=== PATIENT | female | born 1965 | race Caucasian/White ===

== ENCOUNTER → 2020-03-06 13:06 | Outpatient (BNVA) | payer MEDICAID, SELFPAY | PROVIDERS: PCP Emergency Medicine; Referring Provider Emergency Medicine; Visit Provider Internal Medicine Cardiovascular Disease | DX: R07.9 Chest pain, unspecified (principal); R06.00 Dyspnea, unspecified; I70.0 Atherosclerosis of aorta | CPT/HCPCS: 93005; 99212 ==

== ENCOUNTER 2020-10-16 16:32 | Outpatient (REF) | payer MEDICAID, SELFPAY ==
--- NOTE | ~2020-10-16 | MM_ITS ---
EXAMINATION: MM SCREENING DIGITAL BREAST TOMOSYNTHESIS, BILATERAL CLINICAL INFORMATION: Screening. Asymptomatic. The lifetime risk of breast cancer based on the Tyrer-Cuzick Model is 11.8%. COMPARISON: Mammography: 06/04/2014 and 05/27/2014. TECHNIQUE: Digital breast tomosynthesis is performed in both the craniocaudal and mediolateral oblique views along with computer-aided detection (CAD). Synthesized 2D images are generated from the tomosynthesis. FINDINGS: The breasts are almost entirely fatty (ACR BI-RADS breast composition Category a). There is a stable parenchymal pattern within the left breast with no new abnormal dominant mass or suspicious grouping of microcalcifications. Within the right breast upper outer aspect approximately 10 cm from the nipple there is a region of ill-defined density which was present to some degree on prior study but not as prominent. Spot compression views are recommended in craniocaudal and mediolateral oblique projections. MM/MM tomosynthesis screening BI IMPRESSION: Right breast abnormality upper outer aspect for further evaluation as described. ASSESSMENT: BI-RADS 0: Incomplete - Need Additional Imaging Evaluation RECOMMENDATION: 1. Additional views of the right breast. 2. Targeted ultrasound if warranted after review of the additional views. 3. Radiology department staff will contact the patient for additional imaging. This patient's information was entered into a reminder system with a target due date for their next mammogram.
== END 2020-10-16 16:33 | disposition home or self-care (01) ==
LOC: HO.MAMMO 16:32
PROVIDERS: PCP Internal Medicine; Visit Provider Advanced Practice Midwife
DX: Z12.31 Encounter for screening mammogram for malignant neoplasm of breast (principal)
CPT/HCPCS: 77063; 77067

== ENCOUNTER 2020-10-30 14:01 | Outpatient (REF) | payer MEDICAID, SELFPAY ==
--- NOTE | ~2020-10-30 | MM_ITS ---
EXAMINATION: MM DIAGNOSTIC DIGITAL BREAST TOMOSYNTHESIS, RIGHT US DIAGNOSTIC ULTRASOUND BREAST, RIGHT CLINICAL INFORMATION: Recall from screening for small architectural abnormality posterior 9:00 right breast. COMPARISON: Mammography: 10/16/2020, 06/04/2014 TECHNIQUE: Digital breast tomosynthesis is performed. 2D images are generated from the tomosynthesis. The following views are obtained: 3-D spot MLO, 3-D spot CC, 3-D ML. Ultrasound right breast is targeted to the outer quadrant. Grayscale imaging and color Doppler are performed without and with harmonics. FINDINGS: The breasts are almost entirely fatty (ACR BI-RADS breast composition Category a). The additional views show small persistent area of architectural changes posterior 9:00 position. Finding is more conspicuous on current exam possibly related to 3-D technique. Ultrasound demonstrates no cystic or solid mass or architectural abnormality. No ultrasound correlate for the mammographic finding. Results are discussed with the patient at time of visit. The mammographic finding may represent a small radial scar. Stereotactic sampling is suggested. Results are Recommendation called to medical coordinator pesticide use (Gabby) for provider Nichole Argueta CNM on 10/30/2020. MM/MM tomosynthesis added views R IMPRESSION: Subtle architectural changes posterior 9:00 right breast, possibly radial scar. ASSESSMENT: BI-RADS 4: Suspicious (subcategory 4A: Low suspicion for malignancy) RECOMMENDATION: Stereotactic biopsy right breast. This patient's information was entered into a reminder system with a target due date for their next mammogram.
== END 2020-10-30 14:02 | disposition home or self-care (01) ==
LOC: HO.MAMMO 14:01
PROVIDERS: Visit Provider Advanced Practice Midwife
DX: R92.2 Inconclusive mammogram (principal)
CPT/HCPCS: 76642; 77061; 77065

== ENCOUNTER 2020-11-14 09:11 | Outpatient (REF) | payer MEDICAID, SELFPAY | END 2020-11-14 09:12 | disposition home or self-care (01) | LOC: HO.MAMMO 09:11 | PROVIDERS: Visit Provider Surgery | DX: R92.8 Other abnormal and inconclusive findings on diagnostic imaging of breast (principal) | CPT/HCPCS: 99202 ==

== ENCOUNTER 2020-11-28 10:05 | Outpatient (REF) | payer MEDICAID, SELFPAY ==
--- NOTE | ~2020-11-28 | MM_ITS ---
EXAMINATION: STEREOTACTIC TARGETING BREAST, RIGHT CLINICAL INFORMATION: Question of architectural changes posterior 9:00 right breast on 3-D imaging when compared with remote 2-D exam. No ultrasound correlate. COMPARISON: Mammography 10/30/2020, 10/16/2020, 06/04/2014, 05/27/2014. TECHNIQUE/PROCEDURE: Informed consent was obtained from the patient after discussion of the benefits, risks, and alternatives to biopsy today. Patient appeared to understand. Gave opportunity for questions. Patient signed consent form. BIOPSY TABLE: [facility]opsy System. LESION: Question of architectural changes posterior 9:00 position. TARGETING: Digital breast tomosynthesis used for targeting. Targeting is attempted from both the lateral side as well as from the craniocaudal approach. There is no architectural distortion or spiculated lesion demonstrated. Background benign appearing stromal markings are demonstrated in the expected area. It was decided to abort the planned tissue sampling. Short interval six-month follow-up right diagnostic mammography will be performed. Results and management plans discussed with the patient who is in agreement. Results and management plan called to medical assisting program director (Nicci) for Dr. Thakkar on 11/28/2020. ASSESSMENT: BI-RADS 3: Probably Benign RECOMMENDATIONS: Diagnostic right digital breast tomosynthesis in 6 months. This patient's information was entered into a reminder system with a target due date for their next mammogram.
== END 2020-11-28 10:06 | disposition home or self-care (01) ==
LOC: HO.MAMMO 10:05
PROVIDERS: Visit Provider Surgery
DX: R92.8 Other abnormal and inconclusive findings on diagnostic imaging of breast (principal)
CPT/HCPCS: 19081

== ENCOUNTER 2021-01-29 11:21 | Outpatient (REF) | payer OTHER, MEDICAID, SELFPAY ==
--- NOTE | ~2021-01-29 | XR_ITS ---
EXAMINATION: XR SHOULDER, RIGHT CLINICAL INFORMATION: Right shoulder pain. COMPARISON: None. TECHNIQUE: AP external rotation, Grashey, scapular Y, and axillary views of the right shoulder. FINDINGS: Small acromioclavicular marginal osteophytes and mild subchondral cystic change. Tiny glenohumeral marginal osteophytes. No fracture or dislocation. Thin calcification adjacent to the greater tuberosity measuring 0.7 cm, consistent with infraspinatus calcific tendinitis. XR/XR shoulder RT min 2V IMPRESSION: Mild distal infraspinatus calcific tendinitis. Mild acromioclavicular and glenohumeral osteoarthritis.
== END 2021-01-29 11:22 | disposition home or self-care (01) ==
LOC: HO.XRAY 11:21
PROVIDERS: Absent Provider Internal Medicine; PCP Internal Medicine; Visit Provider Family Medicine
DX: M25.511 Pain in right shoulder (principal)
CPT/HCPCS: 73030

== ENCOUNTER → 2021-02-20 10:14 | Outpatient (BNVA) | payer OTHER, MEDICAID, SELFPAY | PROVIDERS: PCP Internal Medicine; Visit Provider Physician Assistant | DX: M75.101 Unspecified rotator cuff tear or rupture of right shoulder, not specified as traumatic (principal) | CPT/HCPCS: 99202 ==

== ENCOUNTER → 2021-03-25 13:35 | Outpatient (BNVA) | payer MEDICAID, SELFPAY | PROVIDERS: PCP Internal Medicine; Referring Provider Internal Medicine; Visit Provider Internal Medicine Cardiovascular Disease | DX: R06.00 Dyspnea, unspecified (principal); I70.0 Atherosclerosis of aorta | CPT/HCPCS: 93005; 99212 ==

== ENCOUNTER 2021-04-25 16:02 | Emergency (ER) | payer MEDICAID, SELFPAY ==
--- NOTE | ~2021-04-25 | CT_ITS ---
EXAMINATION: CT HEAD WITHOUT CONTRAST CT CERVICAL SPINE WITHOUT CONTRAST CLINICAL INFORMATION: 40 pound bag fell on head and neck at work COMPARISON: None. TECHNIQUE: Contiguous axial imaging was performed from the skull base to vertex without intravenous administration of contrast. In addition, helical noncontrast CT imaging was acquired through the cervical spine and source images were reviewed along with axial reconstructions and sagittal and coronal MPRs. DOSE LOWERING TECHNIQUES: This CT examination was performed using dose optimization techniques as appropriate, variously including the following: - Automated exposure control - Adjustment of mA and/or kV according to patient size (this includes techniques or standardized protocols for targeted exams were dose is matched to indication/reason for exam; i.e. extremities or head) - Use of degenerative construction technique DLP: 1170 mGy-cm FINDINGS: HEAD: No intracranial mass, hemorrhage, or midline shift is visualized. The ventricles and sulci are age-appropriate. No extra-axial collections are identified. The paranasal sinuses are well aerated. CERVICAL SPINE: There is no evidence of acute cervical spine fracture. Vertebral bodies remain normal in height and alignment is anatomic. Mild loss of intervertebral disc space at C5-C6 and C6-C7 secondary to degenerative disc disease. No pre- or paravertebral soft tissue abnormality is identified. Limited assessment of the lung apices is unremarkable. CT/CT cervical spine wo con IMPRESSION: 1. No acute intracranial pathology. 2. No CT evidence of acute cervical spine fracture or traumatic subluxation.
--- NOTE | ~2021-04-25 | XR_ITS ---
EXAMINATION: XR SHOULDER, RIGHT CLINICAL INFORMATION: Right shoulder pain after 40 pound bag fell on her at work COMPARISON: Right shoulder x-ray on 01/29/2021 TECHNIQUE: AP external rotation, Grashey, scapular Y, and axillary views of the right shoulder. FINDINGS: There is mild acromioclavicular osteoarthritis. Glenohumeral joint is well preserved. No fracture. Alignment is anatomic. Mild calcific tendinitis. XR/XR shoulder RT min 2V IMPRESSION: Mild degenerative disease of the right shoulder.
--- NOTE | ~2021-04-25 | CT_ITS ---
EXAMINATION: CT HEAD WITHOUT CONTRAST CT CERVICAL SPINE WITHOUT CONTRAST CLINICAL INFORMATION: 40 pound bag fell on head and neck at work COMPARISON: None. TECHNIQUE: Contiguous axial imaging was performed from the skull base to vertex without intravenous administration of contrast. In addition, helical noncontrast CT imaging was acquired through the cervical spine and source images were reviewed along with axial reconstructions and sagittal and coronal MPRs. DOSE LOWERING TECHNIQUES: This CT examination was performed using dose optimization techniques as appropriate, variously including the following: - Automated exposure control - Adjustment of mA and/or kV according to patient size (this includes techniques or standardized protocols for targeted exams were dose is matched to indication/reason for exam; i.e. extremities or head) - Use of degenerative construction technique DLP: 1170 mGy-cm FINDINGS: HEAD: No intracranial mass, hemorrhage, or midline shift is visualized. The ventricles and sulci are age-appropriate. No extra-axial collections are identified. The paranasal sinuses are well aerated. CERVICAL SPINE: There is no evidence of acute cervical spine fracture. Vertebral bodies remain normal in height and alignment is anatomic. Mild loss of intervertebral disc space at C5-C6 and C6-C7 secondary to degenerative disc disease. No pre- or paravertebral soft tissue abnormality is identified. Limited assessment of the lung apices is unremarkable. CT/CT head/brain wo con IMPRESSION: 1. No acute intracranial pathology. 2. No CT evidence of acute cervical spine fracture or traumatic subluxation.
[2021-04-25 16:09] VITALS: BP 150/53; PULSE 72; RESP 18; TEMP 36.7; O2SAT 99; BMI 39.7
[2021-04-25] MEDS: Acetaminophen 325 MG TABLET 975 MG PO (16:53)
--- NOTE | 2021-04-25 17:31 | ED.HEATRA ---
HPI - Head Injury General Chief complaint: Head Injury Stated complaint: 40 lb bag fell on the back of head at work Time Seen by Provider: 04/25/21 16:09 Source: patient Mode of arrival: ambulatory Limitations: no limitations History of Present Illness HPI Narrative: 55-year-old female presenting to the ED with complaints of intermittent headaches, fogginess and unable to concentrate and forgetfulness after she had a work related injury on Tuesday. 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 She reports she does not actually have pain at this time although she is concern for concussion or any other acute processes. She denies loss of consciousness or being on any blood thinners or any other symptoms complaints concerns or injuries at this time. MD Complaint: head injury Onset (ago): day(s) (4) Mechanism of Injury: work related injury Place: work Loss of Consciousness: no Location of injury: occipital Radiation: none Other Injuries: none Related Data Home Medications Medication Instructions Recorded Confirmed albuterol sulfate 90 mcg/actuation 2 puff INHALATION Q6H PRN 03/06/20 03/25/21 aerosol inhaler (ProAir HFA) amlodipine 2.5 mg tablet (Norvasc) 2.5 mg PO DAILY 03/06/20 03/25/21 atenolol 25 mg tablet 25 mg PO DAILY 03/06/20 03/25/21 atorvastatin 80 mg tablet 80 mg PO DAILY 03/06/20 03/25/21 hydrocortisone 1 % topical cream 1 applic TOPICAL TID PRN 03/06/20 03/25/21 (Anti-Itch (hydrocortisone)) ipratropium 20 mcg-albuterol 100 1 puff INHALATION QID 03/06/20 03/25/21 mcg/actuation mist for inhalation (Combivent Respimat) meloxicam 7.5 mg tablet (Mobic) 7.5 mg PO DAILY 03/06/20 03/25/21 simethicone 180 mg capsule (Gas 180 mg PO BID PRN 03/06/20 03/25/21 Relief (simethicone)) Previous Rx's Medication Instructions Recorded fluticasone propionate 115 2 puff INHALATION BID #12 g 04/24/21 mcg-salmeterol 21 mcg/actuation HFA inhaler (Advair HFA) acetaminophen 500 mg tablet 1,000 mg PO QID PRN #14 tab 04/25/21 (Tylenol Extra Strength) cyclobenzaprine 10 mg tablet 10 mg PO Q8H PRN #14 tab 04/25/21 ondansetron 4 mg disintegrating 4 mg PO Q6-8H PRN #14 tab 04/25/21 tablet Allergies Allergy/AdvReac Type Severity Reaction Status Date / Time amoxicillin Allergy Unknown Unknown Verified 03/25/21 13:42 Erythromycin Allergy Unknown unknown Uncoded 11/14/20 08:48 Latex Gloves Allergy Unknown Unknown Uncoded 11/14/20 08:48 Lidocaine Allergy Unknown Unknown Uncoded 11/14/20 08:48 Review of Systems Review of Systems: Constitutional : No changes in activity, No lethargy, No recent prior head injury, No agitation, No increased fussiness ENT/Mouth : No Ear Pain, No Nasal discharge/drainage Eyes: No Eye Pain, No Swelling, No Redness, No Foreign Body, No Vision Changes Cardiovascular : No Chest Pain, No SOB Respiratory : No Cough Gastrointestinal : No Nausea, No Vomiting, No abdominal Pain Genitourinary : No Dysuria, No Urinary Frequency, No Urinary Incontinence, No Urgency, No Flank Pain Musculoskeletal : No joint pain, No neck stiffness, No back pain/injury Skin : No lacerations Neuro : No unsteady gait, No Paresthesias, No Loss of Consciousness, No altered mental status, No dizziness, + Headache Denies past medical history of HIV, recent trauma, coagulopathy, recent spinal/ epidural procedure, new medication, URI symptoms, close contacts with similar symptoms, tick bite, or known CO2 exposure. Yes all other systems are reviewed and are negative [facility], [facility] Past Medical History Attestation statement: The following information was validated with the patient. Medical History Aortic atherosclerosis Chest pain Surgical History History of colonoscopy Family History Family History Mother HTN (hypertension) H/O heart artery stent Father No problems noted. Social History Social History Alcohol intake: current Alcohol intake frequency: holidays/special occasions only Patient Tobacco Use Status: Former Tobacco user Quit Date: 2010 Years Smoked: 28 +/- Advance Directives: No Advance Directives Information Provided: Yes Current occupational status: employed Current occupation: [employer] handed Physical Exam Vital Signs: Vital Signs: Last Vital Signs Temp 98.0 F 04/25/21 16:09 Pulse 72 04/25/21 16:09 Resp 18 04/25/21 16:09 BP 150/53 H 04/25/21 16:09 Pulse Ox 99 04/25/21 16:09 BMI result Body Mass Index 39.7 Vital signs have been reviewed as normal and appeared to be correct. Blood pressure normal. Heart rate normal. Respiration rate normal. Temperature normal. Oxygen saturation normal. Appearance: Alert. Oriented X3. No acute distress. Head: Normal external exam. Normocephalic. Atraumatic. Able to rotate head bilaterally. Eyes: PERRLA. EOMI. No nystagmus noted. Conjunctiva and sclera normal. Eyelids normal. Corneal reflex normal. ENT: EAC normal. TM's Normal. No septal hematoma noted. No hemotympanum noted. Hearing normal. Pharynx normal. Uvula midline. tongue midline. Moist mucous membranes. No trismus noted. No drooling noted. No muffled voice noted. Neck: Normal inspection. Neck supple. FROM. No adenopathy. Thyroid Normal. No meningeal signs. No neck mass noted. CVS: Normal heart rate and rhythm. Heart sound normal. No murmurs noted. Pulses normal throughout. Respiratory: No respiratory distress. Painless inspiration. Breath sounds normal. No wheezes/rales/rhonchi noted. Chest nontender. No accessory muscle usage noted or decreased air movement noted. Back: Full range of motion noted. Skin: Skin warm and dry. Normal skin color. Normal skin turgor. No rashes/lesions/lacerations noted. Extremities: Patient with tenderness all patients to the right shoulder at the AC joint with full range of motion no obvious ligamentous or tendon injury noted. No obvious deformities are noted. Otherwise all other Extremities exhibit normal range of motion and nontender. Able to shrug shoulders bilaterally and keep up against resistance. Neuro: Oriented X 3. No motor deficit. No sensory deficit. Reflexes normal. Moving all extremities. No focal motor deficits. Cranial nerves II-XI intact bilaterally. Facial strength normal. Normal cognition. Speech normal. Gait normal. Strength 5/5 throughout. No pronator drift. No tremor noted. No fasciculations noted. Muscle tone normal throughout. No asterixis noted. Kyqfrl-pv-[id number] test normal. Heel to asher test normal. Tandem gait normal. Does not sway with eyes open. Romberg test negative. Rapid alternating movement upper extremity normal. Rapid alternating movement lower extremity normal. Hand drop from overhead-Mrs. face. No rigidity noted. Course Course Course Narrative: 16:50pm - 55-year-old female presenting to the ED with complaints of intermittent headaches, fogginess and unable to concentrate and forgetfulness after she had a work related injury on Tuesday. 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 She reports she does not actually have pain at this time although she is concern for concussion or any other acute processes. She denies loss of consciousness or being on any blood thinners or any other symptoms complaints concerns or injuries at this time. Will obtain a CT scan of brain/cervical spine and x-ray of her right shoulder provide 975 mg of Tylenol for the patient's headache and re-evaluate. Reevaluation(s) Reevaluation #1: - CT scan of brain/cervical spine within normal limits no acute processes are noted. X-ray of right shoulder revealed chronic changes no acute processes are noted. Will DC home with symptomatic treatment instructions to follow up with PCP/[facility] for her job at [employer] and to return if any new or worsening symptoms. Patient understands agrees with this plan. Time: 17:38 [facility] - Head Injury Medical Records Attestation: I reviewed the patient's medical records. Imaging Data Right shoulder xray : Attestation: I personally reviewed and interpreted this imaging study as follows: Radiologist's impression: FINDINGS: There is mild acromioclavicular osteoarthritis. Glenohumeral joint is well preserved. No fracture. Alignment is anatomic. Mild calcific tendinitis.? XR/XR shoulder RT min 2V IMPRESSION: Mild degenerative disease of the right shoulder. CT scan of brain/cervical spine without contrast: Attestation: I personally reviewed and interpreted this imaging study as follows: Radiologist's impression: FINDINGS: HEAD: No intracranial mass, hemorrhage, or midline shift is visualized. The ventricles and sulci are age-appropriate. No extra-axial collections are identified. The paranasal sinuses are well aerated. CERVICAL SPINE: There is no evidence of acute cervical spine fracture. Vertebral bodies remain normal in height and alignment is anatomic. Mild loss of intervertebral disc space at C5-C6 and C6-C7 secondary to degenerative disc disease. No pre- or paravertebral soft tissue abnormality is identified. Limited assessment of the lung apices is unremarkable. CT/CT cervical spine wo con IMPRESSION: 1. No acute intracranial pathology. 2. No CT evidence of acute cervical spine fracture or traumatic subluxation. ? Discharge Plan Discharge Clinical Impression: Work related injury, Head injury, Injury of neck, Right shoulder strain, Concussion without loss of consciousness Patient Disposition: Home, Self-Care Instructions: Concussion (ED), Return to Work Instructions (ED) Prescriptions: New cyclobenzaprine 10 mg tablet 10 mg PO Q8H PRN (Reason: Muscle spasm) Qty: 14 RF: 0 acetaminophen [Tylenol Extra Strength] 500 mg tablet 1,000 mg PO QID PRN (Reason: fever or pain) Qty: 14 RF: 0 ondansetron 4 mg tablet,disintegrating 4 mg PO Q6-8H PRN (Reason: nausea and vomiting) Qty: 14 RF: 0 No Action Advair HFA 115-21 mcg/actuation HFA aerosol inhaler 2 puff inhalation BID Qty: 12 RF: 6 atenolol 25 mg tablet 25 mg PO DAILY RF: 0 hydrocortisone [Anti-Itch (HC)] 1 % cream 1 applic topical TID PRNRF: 0 simethicone [Gas Relief (simethicone)] 180 mg capsule 180 mg PO BID PRNRF: 0 meloxicam [Mobic] 7.5 mg tablet 7.5 mg PO DAILY RF: 0 albuterol sulfate [ProAir HFA] 90 mcg/actuation HFA aerosol inhaler 2 puff inhalation Q6H PRNRF: 0 atorvastatin 80 mg tablet 80 mg PO DAILY RF: 0 Combivent Respimat 20-100 mcg/actuation mist 1 puff inhalation QID RF: 0 amlodipine [Norvasc] 2.5 mg tablet 2.5 mg PO DAILY RF: 0 Referrals: [facility] [Provider Group] - 2 days (for [facility] ) Josr Veliz MD [Primary Care Provider] - 2 days Stand Alone Forms: Work/School Release Print Language: Estonian
== END 2021-04-25 18:12 | disposition home or self-care (01) ==
PROVIDERS: Emergency Provider Emergency Medicine; PCP Internal Medicine
DX: S06.0X0A Concussion without loss of consciousness, initial encounter (principal); S09.90XA Unspecified injury of head, initial encounter; S46.911A Strain of unspecified muscle, fascia and tendon at shoulder and upper arm level, right arm, initial encounter; W20.8XXA Other cause of strike by thrown, projected or falling object, initial encounter; Y93.89 Activity, other specified; Y92.812 Truck as the place of occurrence of the external cause; Y99.0 Civilian activity done for income or pay
CPT/HCPCS: 70450; 72125; 73030; 99283; 99284

== ENCOUNTER → 2021-05-01 15:21 | Outpatient (BNVA) | payer MEDICAID, SELFPAY | PROVIDERS: PCP Internal Medicine; Visit Provider Internal Medicine Pulmonary Disease | DX: J44.9 Chronic obstructive pulmonary disease, unspecified (principal) | CPT/HCPCS: 99212 ==

== ENCOUNTER 2021-05-28 14:26 | Outpatient (REF) | payer MEDICAID, SELFPAY ==
--- NOTE | ~2021-05-28 | MM_ITS ---
EXAMINATION: MM DIAGNOSTIC DIGITAL BREAST TOMOSYNTHESIS, RIGHT CLINICAL INFORMATION: Short interval follow-up questionable architectural changes posterior 9:00 right breast. Aborted placed right stereotactic biopsy 11/28/2020 for lack of definable target. The lifetime risk of breast cancer based on the Tyrer-Cuzick Model is 12%. COMPARISON: Mammography: 11/28/2020, 10/30/2020, 10/16/2020 (BI-RADS 0), 06/04/2014, 05/27/2014 (baseline). TECHNIQUE: Digital breast tomosynthesis is performed in both the craniocaudal and mediolateral oblique views along with computer-aided detection (CAD). Synthesized 2D images are generated from the tomosynthesis. FINDINGS: There are scattered areas of fibroglandular density (ACR BI-RADS breast composition Category b). Stromal tissue is predominantly anterior retroareolar. Remainder of the breast is largely fatty replaced. Some subtle stromal markings are suggested on tomography, less conspicuous when compared with prior studies. There is no developing density or interval mass or interval architectural changes. Possible torsion, right breast will be reassessed at diagnostic exam at time of annual mammography, due in 6 months. No abnormal calcifications. Skin contours are smooth. Results are discussed with the patient at time of visit. MM/MM tomosynthesis diagnostic RT IMPRESSION: Architectural markings posterior 9:00 right breast are less conspicuous. No developing density or interval mass or architectural changes. ASSESSMENT: BI-RADS 3: Probably Benign RECOMMENDATION: Diagnostic mammography at time of annual bilateral mammography, due in 6 months. This patient's information was entered into a reminder system with a target due date for their next mammogram.
== END 2021-05-28 14:27 | disposition home or self-care (01) ==
LOC: HO.MAMMO 14:26
PROVIDERS: Visit Provider Internal Medicine
DX: N63.15 Unspecified lump in the right breast, overlapping quadrants (principal)
CPT/HCPCS: 77061; 77065

== ENCOUNTER → 2021-06-02 14:45 | Outpatient (BNVA) | payer MEDICAID, SELFPAY | PROVIDERS: PCP Internal Medicine; Visit Provider Internal Medicine Pulmonary Disease | DX: J30.89 Other allergic rhinitis (principal); J44.9 Chronic obstructive pulmonary disease, unspecified | CPT/HCPCS: 99212 ==

== ENCOUNTER → 2021-07-24 08:08 | Outpatient (REF) | payer MEDICAID, SELFPAY ==
--- NOTE | 2021-07-24 08:11 | CA_ITS ---
Acquisition Time: 2021-07-24 08:25:49 Total Exercise Time: 00:07:27 Test Indications: Chest Pain Medications: ALBUTEROL AMLODIPINE ATORVASTATIN COMBIVENT MELOXICAM SINGULAIR Protocol: CHAVA Max HR: 142 BPM 85% of Pred: 166 BPM Max BP: 166/068 mmHG Max Work Load: 9.1 METS Exercise stress test with exercise 7 min 27 sec of Chava protocol, achieving 86% MPHR, 9.1 METs, with moderate shortness of breath, no chest discomfort, with isolated pVC, with normotensive response to exercise, with borderline ST depression inferiorly at peak exercise which corrects by 22 sec of recovery, artifactual changes can not be ruled out. In recovery her breathing improved quickly with rest. Test reviewed with Dr Sal Referred By: Isaiah Conde Overread By: DIMAS PEÑA
== END ==
LOC: HO.CARD 08:08
PROVIDERS: PCP Internal Medicine; Visit Provider Internal Medicine Cardiovascular Disease
DX: R07.9 Chest pain, unspecified (principal)
CPT/HCPCS: 93017

== ENCOUNTER 2021-07-28 12:56 | Outpatient (REF) | payer MEDICAID, SELFPAY ==
--- NOTE | ~2021-07-28 | XR_ITS ---
EXAMINATION: XR chest 1V CLINICAL INFORMATION: Reason for Exam R07.9 - Chest pain, unspecified COMPARISON: Chest radiograph 06/14/2018 TECHNIQUE: One view of the chest XR/XR chest 1V FINDINGS/IMPRESSION: Clear lungs. No pneumothorax. No pleural effusion. Normal cardiomediastinal silhouette.
== END 2021-07-28 12:57 | disposition home or self-care (01) ==
LOC: HO.XRAY 12:56
PROVIDERS: PCP Internal Medicine; Referring Provider Internal Medicine; Visit Provider Nurse Practitioner Family
DX: R07.9 Chest pain, unspecified (principal); R06.00 Dyspnea, unspecified; J45.909 Unspecified asthma, uncomplicated; I70.0 Atherosclerosis of aorta; R94.39 Abnormal result of other cardiovascular function study; E66.9 Obesity, unspecified; Z68.38 Body mass index [BMI] 38.0-38.9, adult; Z87.891 Personal history of nicotine dependence; Z88.0 Allergy status to penicillin; Z88.4 Allergy status to anesthetic agent; Z88.1 Allergy status to other antibiotic agents; Z91.040 Latex allergy status; Z79.84 Long term (current) use of oral hypoglycemic drugs; Z79.899 Other long term (current) drug therapy
CPT/HCPCS: 71045; 99212

== ENCOUNTER → 2021-08-19 08:21 | Outpatient (RCR) | payer MEDICAID, SELFPAY | END | disposition home or self-care (01) | LOC: HO.PTCHIC 01-21 10:10 | PROVIDERS: PCP Internal Medicine; Visit Provider Internal Medicine | DX: E11.9 Type 2 diabetes mellitus without complications (principal); I10 Essential (primary) hypertension; J44.9 Chronic obstructive pulmonary disease, unspecified; Z79.899 Other long term (current) drug therapy | CPT/HCPCS: 97110; 97530 ==

== ENCOUNTER → 2021-10-02 08:59 | Outpatient (BNVA) | payer MEDICAID, SELFPAY | PROVIDERS: PCP Internal Medicine; Visit Provider Nurse Practitioner | DX: K59.04 Chronic idiopathic constipation (principal); Z12.11 Encounter for screening for malignant neoplasm of colon | CPT/HCPCS: 99202; 99212 ==

== ENCOUNTER 2021-10-26 09:49 | Outpatient (REF) | payer MEDICAID, SELFPAY ==
--- NOTE | ~2021-10-26 | XR_ITS ---
EXAMINATION: XR KNEE, RIGHT CLINICAL INFORMATION: Right knee arthritis COMPARISON: Right knee radiographs 11/15/2019 TECHNIQUE: Four views of the right knee. FINDINGS: Moderate to severe medial compartment joint space narrowing with subchondral sclerosis and tricompartmental osteophyte formation, similar to prior. Minimal lateral compartment joint space narrowing on the flexion view. No patellar tilt or subluxation. Trace joint effusion. No acute fracture or dislocation. No osseous lesion. XR/XR knee RT 3V IMPRESSION: 1. Similar appearance of tricompartmental knee joint osteoarthritis most advanced at the medial compartment. 2. Trace joint effusion. No acute osseous injury.
[2021-10-26 10:02] LABS: MANUAL DIFF FLAG NO
[2021-10-26 10:45] LABS: Basophils Absolute Auto 0.1 X10*3/uL (0.0-0.2); Basophils Percent Auto 0.6 % (0-2); Eosinophils Absolute Auto 0.2 X10*3/uL (0.0-0.4); Eosinophils Percent Auto 1.5 % (0-4); Hematocrit 40.2 % (37.0-47.0); Hemoglobin 12.7 g/dl (12.0-16.0); Imm Gran Abs Auto 0.06 X10*3/uL (0.00-0.03); Imm Gran Pct Auto 0.6 % (0.0-0.4); Lymphocytes Absolute Auto 3.3 X10*3/uL (1.2-4.9); Lymphocytes Percent Auto 33.4 % (20-40); Mean Corpuscular HGB Conc 31.6 g/dl (31.0-35.0); Mean Corpuscular Hemoglobin 28.3 pg (27.0-33.0); Mean Corpuscular Volume 89.7 fL (80.0-98.0); Mean Platelet Volume 10.7 fL (9.4-12.3); Monocytes Absolute Auto 0.7 X10*3/uL (0.1-1.2); Monocytes Percent Auto 6.9 % (2-11); Neutrophils Absolute Auto 5.6 x10*3/uL (2.0-8.3); Platelet Count 381 X10*3/uL (160-400); Red Blood Count 4.48 X10*6/uL (4.20-5.50); Red Cell Distribution Width 13.3 % (11.0-16.0); White Blood Count 9.9 X10*3/uL (4.8-10.8)
[2021-10-26 11:14] LABS: Alanine Aminotransferase 27 U/L (0-31); Albumin Level 4.3 g/dL (3.5-5.0); Alkaline Phosphatase 103 U/L (39-117); Anion Gap 13 (12-20); Aspartate Amino Transferase 16 U/L (5-31); Bilirubin Total 0.6 mg/dL (0.0-1.0); Blood Urea Nitrogen 8 mg/dL (9-16); Calcium 9.2 mg/dL (8.4-10.2); Carbon Dioxide 29 mmol/L (22-29); Chloride 104 mmol/L (96-108); Estimated Glomerular Filt Rate > 60; Glucose Random 122 mg/dL (60-115); Potassium 4.6 mmol/L (3.3-5.1); Sodium 141 mmol/L (135-145); Total Protein 7.1 g/dL (6.5-8.0)
== END 2021-10-26 09:50 | disposition home or self-care (01) ==
LOC: HO.XRAY 09:49
PROVIDERS: Absent Provider Internal Medicine; PCP Internal Medicine; Visit Provider Nurse Practitioner
DX: M17.11 Unilateral primary osteoarthritis, right knee (principal)
CPT/HCPCS: 36415; 73562; 80053; 85025

== ENCOUNTER → 2021-10-30 10:33 | Outpatient (BNVA) | payer MEDICAID, SELFPAY | PROVIDERS: PCP Internal Medicine; Visit Provider Internal Medicine Pulmonary Disease | DX: J44.9 Chronic obstructive pulmonary disease, unspecified (principal); J30.89 Other allergic rhinitis | CPT/HCPCS: 99212 ==

== ENCOUNTER → 2021-11-13 09:24 | Outpatient (BNVA) | payer MEDICAID, SELFPAY | PROVIDERS: PCP Internal Medicine; Visit Provider Nurse Practitioner | DX: Z12.11 Encounter for screening for malignant neoplasm of colon (principal); K59.04 Chronic idiopathic constipation | CPT/HCPCS: 99212 ==

== ENCOUNTER 2021-12-03 14:04 | Outpatient (REF) | payer MEDICAID, SELFPAY ==
--- NOTE | ~2021-12-03 | MM_ITS ---
EXAMINATION: MM DIAGNOSTIC DIGITAL BREAST TOMOSYNTHESIS, BILATERAL CLINICAL INFORMATION: Due for yearly. Also follow-up question of architectural changes posterior 9:00 right breast. Aborted right stereotactic biopsy 11/28/2020 for lack of definable target. TC score 13%. COMPARISON: Mammography: 05/28/2021, 11/28/2020, 10/30/2020, 10/16/2020 (BI-RADS 0), 05/27/2014; right ultrasound 10/30/2020. TECHNIQUE: Digital breast tomosynthesis is performed in both the craniocaudal and mediolateral oblique views along with computer-aided detection (CAD). Synthesized 2D images are generated from the tomosynthesis. Additional bilateral MLO views are provided. FINDINGS: The breasts are almost entirely fatty (ACR BI-RADS breast composition Category a). There are fibroglandular densities retroareolar regions, pattern similar to prior studies. The remainder of the breasts are largely fatty replaced. No interval mass or architectural abnormality or abnormal calcifications. Skin contours are smooth. The stromal markings posterior 9:00 right breast for follow-up are stable from prior tomographic studies. There is no developing density or interval mass or interval architectural change. The remote 2-D mammography from 2014 likely shows similar finding. Right breast will be reassessed again in 6 months. Results are provided to the patient at time of visit by the technologist. MM/MM tomosynthesis diagnostic BI IMPRESSION: -No significant changes from prior studies. -Accentuated stromal markings posterior 9:00 right breast for follow-up, stable. ASSESSMENT: BI-RADS 3: Probably Benign RECOMMENDATION: Diagnostic right mammography in 6 months. This patient's information was entered into a reminder system with a target due date for their next mammogram.
== END 2021-12-03 14:05 | disposition home or self-care (01) ==
LOC: HO.MAMMO 14:04
PROVIDERS: PCP Internal Medicine; Visit Provider Internal Medicine
DX: N64.89 Other specified disorders of breast (principal)
CPT/HCPCS: 77062; 77066

== ENCOUNTER → 2022-01-27 10:11 | Outpatient (BNVA) | payer MEDICAID, SELFPAY | PROVIDERS: PCP Internal Medicine; Visit Provider Internal Medicine Pulmonary Disease | DX: R91.8 Other nonspecific abnormal finding of lung field (principal); J44.9 Chronic obstructive pulmonary disease, unspecified; J30.89 Other allergic rhinitis; R06.00 Dyspnea, unspecified | CPT/HCPCS: 99212 ==

== ENCOUNTER 2022-02-08 14:04 | Outpatient (REF) | payer MEDICAID, SELFPAY ==
--- NOTE | ~2022-02-08 | CT_ITS ---
EXAMINATION: CT CHEST WITHOUT CONTRAST CLINICAL INFORMATION: Abnormal finding of lung field COMPARISON: Previous chest x-ray July 2021 TECHNIQUE: Multidetector volumetric CT imaging of the chest was done. Axial MIP volume rendering provided. Sagittal and coronal reformatted images were obtained. This CT examination was performed using dose optimization techniques as appropriate, variously including the following: *Automated exposure control *Adjustment of mA and/or kV according to patient size (this includes techniques or standardized protocols for targeted exams where dose is matched to indication/reason for exam; i.e. extremities or head) *Use of iterative reconstruction technique DLP: 134 mGy-cm FINDINGS: PLATER BARREL: Unremarkable LUNGS: There is a 3 mm semisolid right upper lobe nodule axial image 50 series 7. There is a 2 mm semisolid left upper lobe nodule axial image 56 7. No evidence of emphysema interstitial lung disease or bronchiectasis. No endobronchial or endotracheal lesion. MEDIASTINUM: The mediastinum is normal. CORONARY ARTERY CALCIFICATION: Mild PLEURA: There is no pleural effusion. No pleural mass or thickening. AXILLA: No lymphadenopathy. UPPER ABDOMEN: Fatty liver. Gallstone. OSSEOUS STRUCTURES: Degenerative changes of the spine. CT/CT chest wo IV con IMPRESSION: Small semisolid bilateral apical nodules. Mild coronary artery calcification. Fatty liver. According to the UPDATED 2017 Fleischner Society recommendations, the advised follow-up imaging for less than 6 mm solid nodule: Low risk, no chest CT follow-up and high risk, optional chest CT follow-up in one year. Fleischner guidelines were followed.
== END 2022-02-08 14:05 | disposition home or self-care (01) ==
LOC: HO.CT 14:04
PROVIDERS: Visit Provider Internal Medicine Pulmonary Disease
DX: R91.8 Other nonspecific abnormal finding of lung field (principal)
CPT/HCPCS: 71250

== ENCOUNTER 2022-07-12 12:26 | Outpatient (REF) | payer MEDICAID, SELFPAY ==
[2022-07-12 14:13] LABS: Basophils Percent Auto 0.2 % (0-2); Eosinophils Absolute Auto 0.1 X10*3/uL (0.0-0.4); Eosinophils Percent Auto 1.1 % (0-4); Hematocrit 42.1 % (37.0-47.0); Hemoglobin 13.8 g/dl (12.0-16.0); Imm Gran Abs Auto 0.04 X10*3/uL (0.00-0.03); Imm Gran Pct Auto 0.5 % (0.0-0.4); Lymphocytes Absolute Auto 5.1 X10*3/uL (1.2-4.9); Lymphocytes Percent Auto 62.6 % (20-40); MANUAL DIFF FLAG SCAN; Mean Corpuscular HGB Conc 32.8 g/dl (31.0-35.0); Mean Corpuscular Hemoglobin 28.2 pg (27.0-33.0); Mean Corpuscular Volume 86.1 fL (80.0-98.0); Mean Platelet Volume 10.9 fL (9.4-12.3); Monocytes Absolute Auto 0.7 X10*3/uL (0.1-1.2); Neutrophils Absolute Auto 2.3 x10*3/uL (2.0-8.3); Neutrophils Percent Auto 27.6 % (45-73); Platelet Count 327 X10*3/uL (160-400); Red Blood Count 4.89 X10*6/uL (4.20-5.50); Red Cell Distribution Width 12.8 % (11.0-16.0); SCAN SMEAR FLAG 1; White Blood Count 8.2 X10*3/uL (4.8-10.8)
[2022-07-12 14:51] LABS: SLIDE REVIEW VERIFIED
== END 2022-07-12 12:27 | disposition home or self-care (01) ==
LOC: HO.LAB 12:26
PROVIDERS: PCP Internal Medicine; Visit Provider Internal Medicine Pulmonary Disease
DX: J44.9 Chronic obstructive pulmonary disease, unspecified (principal)
CPT/HCPCS: 36415; 82785; 85025; 86003

== ENCOUNTER 2022-08-13 14:26 | Outpatient (REF) | payer MEDICAID, SELFPAY ==
--- NOTE | ~2022-08-13 | MM_ITS ---
EXAMINATION: MM DIAGNOSTIC DIGITAL BREAST TOMOSYNTHESIS, RIGHT CLINICAL INFORMATION: Six-month follow-up right breast density. COMPARISON: Mammography: 12/03/2021 and studies dating back to 05/27/2014. TECHNIQUE: Digital breast tomosynthesis is performed in both the craniocaudal and mediolateral oblique views along with computer-aided detection (CAD). Synthesized 2D images are generated from the tomosynthesis. FINDINGS: The breasts are almost entirely fatty (ACR BI-RADS breast composition Category a). There are no new significant masses, abnormal calcifications, or other abnormalities. The region of asymmetric tissue in the upper outer aspect of the right breast appears stable and similar in appearance dating back to study of 05/27/2014. Recommend 6 month bilateral mammography to return to yearly screening. Results are provided to the patient at time of visit by the technologist. MM/MM tomosynthesis diagnostic RT IMPRESSION: There are no significant changes from prior study. ASSESSMENT: BI-RADS 2: Benign RECOMMENDATION: Routine annual mammography screening, due in 6 months. This patient's information was entered into a reminder system with a target due date for their next mammogram.
== END 2022-08-13 14:27 | disposition home or self-care (01) ==
LOC: HO.MAMMO 14:26
PROVIDERS: PCP Internal Medicine; Visit Provider Internal Medicine
DX: R92.2 Inconclusive mammogram (principal)
CPT/HCPCS: 77061; 77065

== ENCOUNTER 2022-12-13 18:08 | Outpatient (REF) | payer MEDICAID, SELFPAY ==
[2022-12-13 19:05] LABS: Influenza A PCR NEGATIVE (Negative); Influenza B PCR NEGATIVE (Negative); Resp Syncy Virus RNA Qual PCR NEGATIVE (Negative); SARS COV2 PCR INHOUSE NEGATIVE (Negative)
== END 2022-12-13 18:09 | disposition home or self-care (01) ==
LOC: HO.HHCLNP 18:08
PROVIDERS: Visit Provider Emergency Medicine
DX: Z20.822 Contact with and (suspected) exposure to COVID-19 (principal); R68.89 Other general symptoms and signs
CPT/HCPCS: 0241U; 87070

== ENCOUNTER 2022-12-15 10:37 | Outpatient (AMB) | payer MEDICAID, SELFPAY ==
--- NOTE | 2022-12-15 10:40 | A.OFFVIS_ITS ---
Intake Vital Signs 12/15/22 10:41 Height 5 ft 6 in Weight 220 lb 7.396 oz BMI 35.6 BP 127/74 Blood Pressure Location Lt brachial Position Sitting Pulse 104 H Pulse Source Doppler Pulse Oximetry (%) 94 Oxygen Delivery Method Room Air Intake Visit Reasons: persistent cough Allergies amoxicillin Allergy (Intermediate, Verified 12/15/22 10:46) Rash latex Allergy (Intermediate, Verified 12/15/22 10:46) Rash erythromycin base Adverse Reaction (Intermediate, Verified 12/15/22 10:46) Gastrointestinal Upset Lidocaine Allergy (Unknown, Uncoded 07/28/21 12:59) Unknown HPI persistent cough HPI Details 57 y/o lady former 30 pack years smoker, quit 2010, followed for underlying mild asthma/COPD overlap syndrome and environmental allergies. Now followed for moderate severe asthma well controlled on current regimen Advair 11 5 and albuterol MDI. Patient does complain of an acute bronchitic exacerbation ongoing for the last several days symptomatic with nonproductive cough. She was seen by urgent care and started on cephalosporin. She continues to intentionally lose weight. [facility] Medical History (Updated 03/05/22 @ 10:33 by Marah Estrada RN) Aortic atherosclerosis Asthma-COPD overlap syndrome Chest pain Diabetes Elevated cholesterol History of COVID-19 HTN (hypertension) Pulmonary nodule Surgical History (Updated 03/02/22 @ 13:06 by Marah Estrada RN) History of colonoscopy Family History Mother HTN (hypertension) H/O heart artery stent Father No problems noted. Social History Alcohol intake: current Alcohol intake frequency: holidays/special occasions only Patient Tobacco Use Status: Former Tobacco user Quit Date: 2010 Tobacco use type: Cigarette Years Smoked: 28 +/- Current occupational status: employed Current occupation: [employer] handed Female Reproductive History Menstrual Age of Menarche: 13 Review of Systems Const Denies daytime sleepiness, Denies excessive sweating, Denies fatigue, Denies fever(s), Denies lethargy, Denies malaise, Denies night sweats, Denies snoring and Denies weight loss Eyes Denies blurry vision and Denies itchy eyes ENT Denies nasal congestion, Denies post nasal drip, Denies sinus pain, Denies sinus pressure and Denies other ( Thrush) Card Denies chest pain, Denies pedal edema, Denies dyspnea, Denies orthopnea and Denies paroxysmal nocturnal dyspnea Resp Reports cough, Denies hemoptysis, Denies excessive phlegm production, Denies dyspnea, Denies snoring and Denies wheezing GI Denies abdominal pain and Denies heartburn Musc Denies myalgias, Denies arthralgias and Denies joint swelling Skin/Breast Denies rash Neuro Denies memory loss and Denies seizure-like activity Psych Denies abnormal sleep pattern, Denies anxiety and Denies memory loss Endo Denies excessive sweating, Denies fatigue and Denies heat intolerance Dario/Lymph Denies easy bruising Aller/Immun Denies itchy eyes, Denies seasonal rhinorrhea and Denies wheezing Physical Exam Vital Signs: Last Vital Signs Pulse 104 H 12/15/22 10:41 BP 127/74 12/15/22 10:41 Pulse Ox 94 12/15/22 10:41 Oxygen Delivery Method Room Air 12/15/22 10:41 BMI result Body Mass Index 35.6 Const General: no acute distress and alert Nutritional Appearance: not obese Orientation/consciousness: Other orientation findings ( oriented) HEENT Head: Yes atraumatic Eyes General: appearance normal, both eyes and all related structures Sclerae: sclerae normal EOM: EOMs intact bilaterally Neck Neck: Yes supple Lymphatic: no lymphadenopathy noted Resp Effort & Inspection: normal respiratory effort and no use of accessory muscles Auscultation: clear to auscultation bilaterally Cardio Rate: regular rate Rhythm: regular rhythm Heart sounds: no gallops, no murmurs and no rubs Skin General skin exam: other ( warm) Extrem General: No clubbing, No cyanosis and No edema Assessment & Plan Assessment & Plan (1) Asthma-COPD overlap syndrome: Code(s): J44.9 - Chronic obstructive pulmonary disease, unspecified Plan: Well controlled on current regimen of Advair and albuterol MDI. Continue current regimen. (2) Environmental and seasonal allergies: Code(s): J30.89 - Other allergic rhinitis Plan: Well controlled on Singulair. Continue current regimen. Medications: New codeine-guaifenesin 10-100 mg/5 mL 10 mL PO Q4-6H 7 days PRN 237 mL 0RF cough Coding Level of Care Code Est Pt Level 4 (71608) Diagnoses Asthma-COPD overlap syndrome J44.9 Environmental and seasonal allergies J30.89
[2022-12-15 10:41] VITALS: BP 127/74; PULSE 104; O2SAT 94; BMI 35.6
== END 2022-12-15 10:57 | disposition home or self-care (01) ==
PROVIDERS: PCP Internal Medicine; Visit Provider Internal Medicine Pulmonary Disease
DX: J44.9 Chronic obstructive pulmonary disease, unspecified (principal); J30.89 Other allergic rhinitis
CPT/HCPCS: 99214

== ENCOUNTER → 2022-12-15 10:37 | Outpatient (BNVA) | payer MEDICAID, SELFPAY | PROVIDERS: PCP Internal Medicine; Visit Provider Internal Medicine Pulmonary Disease | DX: J44.9 Chronic obstructive pulmonary disease, unspecified (principal); J30.89 Other allergic rhinitis; Z79.899 Other long term (current) drug therapy | CPT/HCPCS: 99212 ==

== ENCOUNTER 2023-01-07 09:34 | Outpatient (AMB) | payer MEDICAID, SELFPAY ==
--- NOTE | 2023-01-07 09:35 | A.OFFVIS_ITS ---
Intake Intake Visit Reasons: Urinary frequency Intake Note: NEW Patient presents today to established treatment for Urinary Incontinence: Meds- None Allergies to Antibiotic- Amoxicillin, Erythromycin & Lidocaine Blood Thinner- None PVR-164ML Allergies amoxicillin Allergy (Intermediate, Verified 01/07/23 09:49) Rash latex Allergy (Intermediate, Verified 01/07/23 09:49) Rash erythromycin base Adverse Reaction (Intermediate, Verified 01/07/23 09:49) Gastrointestinal Upset Lidocaine Allergy (Unknown, Uncoded 01/07/23 09:49) Unknown HPI HPI Comments History of Present Illness Details Brittanie is a 57-year-old female who presents today to the office to establish as a new patient for an evaluation of urinary frequency. 01/07/2023? She presents today for an evaluation of urinary frequency. She is complaining of stress incontinence and wears a pad. She states that she was treated for urinary tract infections 2 weeks ago. She still has some intermittent burning. She denies any history of breast cancer. She denies any abnormal Pap smears. She has discontinued smoking cigarettes in 2010. Evaluation today?UA? leukocytes: negative; blood: negative; bladder scan PVR: 164 mL. Plan: Retroperitoneum US was ordered. Vagifem 10 mcg was ordered. Vaginal suppositories twice a week. Advised the patient to limit caffeine intake. Follow-up in 3 months. [facility] Medical History History of COVID-19 Pulmonary nodule Elevated cholesterol HTN (hypertension) Diabetes Asthma-COPD overlap syndrome Aortic atherosclerosis Chest pain Surgical History History of colonoscopy Family History Mother HTN (hypertension) H/O heart artery stent Father No problems noted. Social History Alcohol intake: current Alcohol intake frequency: holidays/special occasions only Patient Tobacco Use Status: Former Tobacco user Quit Date: 2010 Tobacco use type: Cigarette Years Smoked: 28 +/- Current occupational status: employed Current occupation: [employer] handed Female Reproductive History Menstrual Age of Menarche: 13 Review of Systems Const All systems reviewed & are unremarkable except as noted in HPI and below Reports no additional complaints Eyes Reports no additional complaints ENT Reports no additional complaints Card Denies dyspnea Resp Denies cough and Denies dyspnea GI Reports no additional complaints Reports no additional complaints Musc Reports no additional complaints Skin/Breast Denies rash and Denies unusual bruising Neuro Reports no additional complaints Psych Reports no additional complaints Endo Reports no additional complaints Dario/Lymph Reports no additional complaints Aller/Immun Reports no additional complaints Physical Exam Const General: cooperative, healthy appearing and no acute distress Nutritional Appearance: overweight Orientation/consciousness: patient oriented x3 HEENT Head: Yes normal to inspection, Yes normocephalic and Yes atraumatic Eyes Conjunctivae: conjunctivae normal Neck Neck: Yes normal visual inspection and Yes trachea midline Chest Chest palpation & inspection: normal inspection of the chest Resp Effort & Inspection: normal respiratory effort Cardio Rate: regular rate GI Inspection: Yes normal to inspection Palpation (GI): Soft to palpation Skin General skin exam: no rashes or lesions noted Neuro General: patient oriented x3 Extrem General: No edema Psych Appearance: grossly normal Office Procedures Post Void Residual Post Residual Void Post Void Residual (PVR): 164 [id number] Void Residual by ultrasound Results AMB Urinalysis, Automated UA Leukoctes 0 Teagan/uL Last Edit by Luis Carlos Gan [facility] on 01/07/23 10:04 UA Nitrite Negative Last Edit by Luis Carlos Gan [facility] on 01/07/23 10:04 UA Urobilinogen 0.2 mg/dL Last Edit by Luis Carlos Gan [facility] on 01/07/23 10:0 4 UA Protein 0 mg/dL Last Edit by Luis Carlos Gan [facility] on 01/07/23 10:04 UA pH 7.0 Last Edit by Luis Carlos Gan [facility] on 01/07/23 10:04 UA Blood 0 Graham/uL Last Edit by Luis Carlos Gan [facility] on 01/07/23 10:04 UA Specific [place] 1.005 Last Edit by Luis Carlos Gan [facility] on 01/07/23 10: 04 UA Ketone Negative Last Edit by Luis Carlos Gan [facility] on 01/07/23 10:04 UA Bilirubin 0 mg/dL Last Edit by Luis Carlos Gan [facility] on 01/07/23 10:04 UA Glucose 0 mg/dL Last Edit by SUMIT Rico on 01/07/23 10:04 Results Reviewed Results Reviewed: Laboratory Last Values Urine pH (Auto) 7.0 01/07/23 09:59 Specific [place] (Auto) 1.005 01/07/23 09:59 Urine Protein (Auto) 0 mg/dL 01/07/23 09:59 Glucose (UA)(Auto) 0 mg/dL 01/07/23 09:59 Urine Ketones (Auto) Negative 01/07/23 09:59 Urine Blood (Auto) 0 Graham/uL 01/07/23 09:59 Urine Nitrite (Auto) Negative 01/07/23 09:59 Urine Bilirubin (Auto) 0 mg/dL 01/07/23 09:59 Urine Urobilinogen (Auto) 0.2 mg/dL 01/07/23 09:59 Leukocyte Esterase (Auto) 0 Teagan/uL 01/07/23 09:59 Retroperitoneum US was ordered. Vagifem 10 mcg was ordered. Vaginal suppositories twice a week. Advised the patient to limit caffeine intake.? Follow-up in 3 months. Assessment & Plan Assessment & Plan (1) JOSIAH (stress urinary incontinence, female): Code(s): N39.3 - Stress incontinence (female) (male) (2) Urinary frequency: Code(s): R35.0 - Frequency of micturition (3) Vaginal atrophy: Code(s): N95.2 - Postmenopausal atrophic vaginitis (4) Recurrent UTI: Code(s): N39.0 - Urinary tract infection, site not specified Orders: Orders AMB Post Void Residual by ultrasound 01/07/23 R32 - Unspecified urinary incontinence AMB Urinalysis Automated 01/07/23 Z13.9 - Encounter for screening, unspecified US retroperitoneal comp 01/07/23 N39.0 - Urinary tract infection, site not specified, R35.0 - Frequency of micturition Medications: New estradiol (Vagifem) Apply vaginally twice a week Mon/Thurs 10 mcg vaginal 2XW 24 tabs 1RF Patient Instructions: The patient had an opportunity to ask questions regarding treatment plan. All questions were answered. Imaging, Laboratory studies and physical exam results were discussed and reviewed in detail. No major barriers to understanding were identified. The patient expressed understanding and agreement with the above treatment plan.? ? ? The patient is aware they should contact our office by phone for worsening of their current condition or the appearance of new symptoms. Compliance is encouraged with any medications and followup testing that is ordered.? ? ? It is a privilege to be allowed the opportunity to participate in the urologic care of your patient. If you have any questions or concerns regarding treatment for the above conditions please do not hesitate to contact me. The office telephone contact is [phone].? ? ? This note is constructed in part using voice recognition software. While every effort has been made to ensure accuracy asphalt plant worker errors may have been included.? ? ? Yours sincerely,? ? ? Manjinder Reddy MD? Coding Level of Care Code New Pt Level 3 (98578) Diagnoses JOSIAH (stress urinary incontinence, female) N39.3 Urinary frequency R35.0 Vaginal atrophy N95.2 Recurrent UTI N39.0 CPT Codes Post Residual Void - PVR CPT Code: 63937-Kcnv Void Residual by ultrasound ([id number])
== END 2023-01-07 10:28 | disposition home or self-care (01) ==
PROVIDERS: PCP Internal Medicine; Visit Provider Urology
DX: N39.3 Stress incontinence (female) (male) (principal); R35.0 Frequency of micturition; N95.2 Postmenopausal atrophic vaginitis; N39.0 Urinary tract infection, site not specified
CPT/HCPCS: 99203

== ENCOUNTER → 2023-01-07 09:34 | Outpatient (BNVA) | payer MEDICAID, SELFPAY | PROVIDERS: PCP Internal Medicine; Visit Provider Urology | DX: N39.3 Stress incontinence (female) (male) (principal); R35.0 Frequency of micturition; N95.2 Postmenopausal atrophic vaginitis; N39.0 Urinary tract infection, site not specified | CPT/HCPCS: 51798; 81003; 99202 ==

== ENCOUNTER 2023-02-18 16:13 | Outpatient (REF) | payer MEDICAID, SELFPAY ==
--- NOTE | ~2023-02-18 | MM_ITS ---
EXAMINATION: MM SCREENING DIGITAL BREAST TOMOSYNTHESIS, BILATERAL CLINICAL INFORMATION: Screening. Asymptomatic. COMPARISON: Mammography: This study is compared with prior exams dating back to 2020. TECHNIQUE: Digital breast tomosynthesis is performed in both the craniocaudal and mediolateral oblique views along with computer-aided detection (CAD). Synthesized 2D images are generated from the tomosynthesis. FINDINGS: The breasts are almost entirely fatty (ACR BI-RADS breast composition Category a). There are no significant masses, abnormal calcifications, or other abnormalities. MM/MM tomosynthesis screening BI IMPRESSION: No mammographic evidence of malignancy. ASSESSMENT: BI-RADS BI-RADS 1 - Negative RECOMMENDATION: Routine annual mammography screening. 1 year F/U This examination should not preclude the clinical evaluation of a suspicious palpable abnormality. This patient's information was entered into a reminder system with a target due date for their next mammogram.
== END 2023-02-18 16:14 | disposition home or self-care (01) ==
LOC: HO.MAMMO 16:13
PROVIDERS: PCP Internal Medicine; Visit Provider Internal Medicine
DX: Z12.31 Encounter for screening mammogram for malignant neoplasm of breast (principal)
CPT/HCPCS: 77063; 77067

== ENCOUNTER → 2023-02-18 16:15 | Outpatient (BNV) | payer MEDICAID, SELFPAY | PROVIDERS: PCP Internal Medicine; Visit Provider Radiology Diagnostic Radiology | DX: Z12.31 Encounter for screening mammogram for malignant neoplasm of breast (principal) | CPT/HCPCS: 77063; 77067 ==

== ENCOUNTER 2023-04-08 11:13 | Outpatient (REF) | payer MEDICAID, SELFPAY ==
--- NOTE | ~2023-04-08 | US_ITS ---
EXAMINATION: US RETROPERITONEAL COMPLETE (RENAL) CLINICAL INFORMATION: Urinary tract infection, site not specified. COMPARISON: None available. TECHNIQUE: Real-time imaging of the kidneys and bladder. Technically difficult study secondary to body habitus. FINDINGS: RIGHT KIDNEY: 12.6 x 4.4 x 6.4 cm (SAG x AP x TRV). The kidney is normal in size, contour, and echogenicity. Renal cortical thickness is normal. No calculi or focal parenchymal lesions. No hydronephrosis. LEFT KIDNEY: 13.0 x 5.8 x 6.5 cm (SAG x AP x TRV). The kidney is normal in size, contour, and echogenicity. Renal cortical thickness is normal. No calculi or focal parenchymal lesions. No hydronephrosis. BLADDER: Well distended and normal. Bilateral ureteral jets are demonstrated. Prevoid bladder volume is 299 mL. Postvoid bladder volume is 48 mL. US/US retroperitoneal comp IMPRESSION: Unremarkable renal ultrasound.
== END 2023-04-08 11:14 | disposition home or self-care (01) ==
LOC: HO.HMGCX 11:13
PROVIDERS: PCP Internal Medicine; Visit Provider Urology
DX: N39.0 Urinary tract infection, site not specified (principal); R35.0 Frequency of micturition
CPT/HCPCS: 76770

== ENCOUNTER 2023-04-15 09:31 | Outpatient (REF) | payer MEDICAID, SELFPAY | END 2023-04-15 09:32 | disposition home or self-care (01) | LOC: HO.LAB 09:31 | PROVIDERS: PCP Internal Medicine; Visit Provider Urology | DX: N39.0 Urinary tract infection, site not specified (principal); R35.0 Frequency of micturition; N95.2 Postmenopausal atrophic vaginitis; N39.3 Stress incontinence (female) (male) | CPT/HCPCS: 81003; 87086; 87088; 87186; 99212 ==

== ENCOUNTER 2023-04-15 09:31 | Outpatient (AMB) | payer MEDICAID, SELFPAY ==
--- NOTE | 2023-04-15 09:45 | A.OFFVIS_ITS ---
Intake Intake Visit Reasons: 3m/US Intake Note: Patient presents today for 3 months follow-up with US Results: Meds- Estradiol Allergies to Antibiotic- Amoxicillin, Erythromycin & Lidocaine Blood Thinner- Furosemide Show Horse Driver Required: No Accompanied by: Self / Same As Patient Allergies amoxicillin Allergy (Intermediate, Verified 04/15/23 10:04) Rash latex Allergy (Intermediate, Verified 04/15/23 10:04) Rash erythromycin base Adverse Reaction (Intermediate, Verified 04/15/23 10:04) Gastrointestinal Upset Lidocaine Allergy (Unknown, Uncoded 04/15/23 10:04) Unknown Medication List - Last Reconciled 04/15/23 by Manjinder Reddy MD albuterol sulfate 90 mcg/actuation (ProAir HFA) 2 puffs inhalation Q6H PRN amlodipine (Norvasc) 2.5 mg PO DAILY atenolol 25 mg PO DAILY atorvastatin 80 mg PO DAILY cyclobenzaprine 10 mg PO Q8H PRN estradiol (Vagifem) 10 mcg vaginal 2XW fluticasone propion-salmeterol 115-21 mcg/actuation (Advair HFA) 2 puffs PO BID hydrocortisone 1% (Anti-Itch (hydrocortisone)) 1 appl topical TID PRN ipratropium-albuterol 20-100 mcg/actuation (Combivent Respimat) 1 puff inhalation QID linaclotide (Linzess) 72 mcg PO QAM meloxicam (Mobic) 7.5 mg PO DAILY montelukast 10 mg PO DAILY simethicone (Gas Relief (simethicone)) 180 mg PO BID PRN HPI HPI Comments History of Present Illness Details Brittanie is a 57-year-old female who presents today to the office for FU--urinary frequency. LV---01/07/2023? 04/15/23--She presents today for FU, she had renal US completed. She is complaining of stress incontinence and wears a pad. She states that she has noted the urine to be cloudy. She still has some intermittent burning. She denies any history of breast cancer. She denies any abnormal Pap smears. She has discontinued smoking cigarettes in 2010. I reviewed renal US with pt, 04/08/23- WNL Evaluation today?UA? Nitrite positive, leukocytes: 15; blood: tr Plan: urine c/s, macrobid 100mg bid Cont Vagifem 10 mcg Vaginal suppositories twice a week. Advised the patient to limit caffeine intake. cranberry orderer, and pyridium prn Follow-up in 1 months with nurse for UA check and bladder scan PVR FU with me in 10 weeks. [facility] Medical History History of COVID-19 Pulmonary nodule Elevated cholesterol HTN (hypertension) Diabetes Asthma-COPD overlap syndrome Aortic atherosclerosis Chest pain Surgical History History of colonoscopy Family History Mother HTN (hypertension) H/O heart artery stent Father No problems noted. Social History Alcohol intake: current Alcohol intake frequency: holidays/special occasions only Patient Tobacco Use Status: Former Tobacco user Quit Date: 2010 Tobacco use type: Cigarette Years Smoked: 28 +/- Current occupational status: employed Current occupation: [employer] handed Female Reproductive History Menstrual Age of Menarche: 13 Review of Systems Const All systems reviewed & are unremarkable except as noted in HPI and below Reports no additional complaints Eyes Reports no additional complaints ENT Reports no additional complaints Card Denies dyspnea Resp Denies cough and Denies dyspnea GI Reports no additional complaints Reports no additional complaints Musc Reports no additional complaints Skin/Breast Denies rash and Denies unusual bruising Neuro Reports no additional complaints Psych Reports no additional complaints Endo Reports no additional complaints Dario/Lymph Reports no additional complaints Aller/Immun Reports no additional complaints Results AMB Urinalysis, Automated UA Leukoctes 15 Teagan/uL Last Edit by SUMIT Rico on 04/15/23 10:10 UA Nitrite Positive Last Edit by SUMIT Rico on 04/15/23 10:10 UA Urobilinogen 0.2 mg/dL Last Edit by Luis Carlos Gan, A on 04/15/23 10:1 0 UA Protein 0 mg/dL Last Edit by Luis Carlos Malik, A on 04/15/23 10:10 UA pH 6.0 Last Edit by Luis Carlos Gan, A on 04/15/23 10:10 UA Blood 10 Graham/uL Last Edit by Luis Carlos Gan, A on 04/15/23 10:10 UA Specific [place] 1.015 Last Edit by Luis Carlos Gan, A on 04/15/23 10: 10 UA Ketone Negative Last Edit by Luis Carlos Gan, A on 04/15/23 10:10 UA Bilirubin 0 mg/dL Last Edit by Luis Carlos Gan, A on 04/15/23 10:10 UA Glucose 0 mg/dL Last Edit by Luis Carlos Gan A on 04/15/23 10:10 Results Reviewed Results Reviewed: Laboratory Last Values Urine pH (Auto) 6.0 04/15/23 10:08 Specific [place] (Auto) 1.015 04/15/23 10:08 Urine Protein (Auto) 0 mg/dL 04/15/23 10:08 Glucose (UA)(Auto) 0 mg/dL 04/15/23 10:08 Urine Ketones (Auto) Negative 04/15/23 10:08 Urine Blood (Auto) 10 Graham/uL 04/15/23 10:08 Urine Nitrite (Auto) Positive 04/15/23 10:08 Urine Bilirubin (Auto) 0 mg/dL 04/15/23 10:08 Urine Urobilinogen (Auto) 0.2 mg/dL 04/15/23 10:08 Leukocyte Esterase (Auto) 15 Teagan/uL 04/15/23 10:08 Date of Service: 04/08/23 EXAMINATION: US RETROPERITONEAL COMPLETE (RENAL) CLINICAL INFORMATION: Urinary tract infection, site not specified. COMPARISON: None available. TECHNIQUE: Real-time imaging of the kidneys and bladder. Technically difficult study secondary to body habitus. FINDINGS: RIGHT KIDNEY: 12.6 x 4.4 x 6.4 cm (SAG x AP x TRV). The kidney is normal in size, contour, and echogenicity. Renal cortical thickness is normal. No calculi or focal parenchymal lesions. No hydronephrosis. LEFT KIDNEY: 13.0 x 5.8 x 6.5 cm (SAG x AP x TRV). The kidney is normal in size, contour, and echogenicity. Renal cortical thickness is normal. No calculi or focal parenchymal lesions. No hydronephrosis. BLADDER: Well distended and normal. Bilateral ureteral jets are demonstrated. Prevoid bladder volume is 299 mL. Postvoid bladder volume is 48 mL. IMPRESSION: Unremarkable renal ultrasound. Assessment & Plan Assessment & Plan (1) JOSIAH (stress urinary incontinence, female): Code(s): N39.3 - Stress incontinence (female) (male) (2) Urinary frequency: Code(s): R35.0 - Frequency of micturition (3) Vaginal atrophy: Code(s): N95.2 - Postmenopausal atrophic vaginitis (4) Recurrent UTI: Code(s): N39.0 - Urinary tract infection, site not specified Plan urine c/s, macrobid 100mg bid Cont Vagifem 10 mcg Vaginal suppositories twice a week. Advised the patient to limit caffeine intake. Follow-up in 1 months with nurse for UA check and bladder scan PVR FU with me in 10 weeks. Orders: Orders AMB Urinalysis Automated Today Z13.9 - Encounter for screening, unspecified Urine Culture Today N39.0 - Urinary tract infection, site not specified Medications: New cranberry extract administer with meals 425 mg PO BID 60 caps 5RF phenazopyridine (Pyridium) 200 mg PO BID PRN 12 tabs 1RF urinary burning nitrofurantoin monohyd/m-cryst 100 mg (Macrobid) must administer with a meal/food 100 mg PO BID 20 caps 0RF antibiotic for UTI Patient Instructions: The patient had an opportunity to ask questions regarding treatment plan. All questions were answered. Imaging, Laboratory studies and physical exam results were discussed and reviewed in detail. No major barriers to understanding were identified. The patient expressed understanding and agreement with the above treatment plan. The patient is aware they should contact our office by phone for worsening of their current condition or the appearance of new symptoms. Compliance is encouraged with any medications and followup testing that is ordered. It is a privilege to be allowed the opportunity to participate in the urologic care of your patient. If you have any questions or concerns regarding treatment for the above conditions please do not hesitate to contact me. The office telephone contact is [phone]. This note is constructed in part using voice recognition software. While every effort has been made to ensure accuracy linoleum mechanic errors may have been included. Yours sincerely, Manjinder Reddy MD Coding Level of Care Code Est Pt Level 4 (54199) Diagnoses JOSIAH (stress urinary incontinence, female) N39.3 Urinary frequency R35.0 Vaginal atrophy N95.2 Recurrent UTI N39.0
== END 2023-04-15 10:29 | disposition home or self-care (01) ==
PROVIDERS: PCP Internal Medicine; Visit Provider Urology
DX: N39.3 Stress incontinence (female) (male) (principal); R35.0 Frequency of micturition; N95.2 Postmenopausal atrophic vaginitis; N39.0 Urinary tract infection, site not specified; Z13.9 Encounter for screening, unspecified
CPT/HCPCS: 99214

== ENCOUNTER 2023-06-24 11:41 | Outpatient (AMB) | payer MEDICAID, SELFPAY ==
--- NOTE | 2023-06-24 11:59 | A.OFFVIS_ITS ---
Intake Intake Visit Reasons: 10w follow up Intake Note: Patient presents today for 2 months follow-up: Meds- Estradiol Allergies to Antibiotic- Amoxicillin, Erythromycin & Lidocaine Blood Thinner- Furosemide Marketing Agent Required: No Accompanied by: Self / Same As Patient Allergies amoxicillin Allergy (Intermediate, Verified 06/24/23 12:00) Rash latex Allergy (Intermediate, Verified 06/24/23 12:00) Rash erythromycin base Adverse Reaction (Intermediate, Verified 06/24/23 12:00) Gastrointestinal Upset Lidocaine Allergy (Unknown, Uncoded 06/24/23 12:00) Unknown Medication List - Last Reconciled 06/24/23 by Manjinder Reddy MD albuterol sulfate 90 mcg/actuation (ProAir HFA) 2 puffs inhalation Q6H PRN amlodipine (Norvasc) 2.5 mg PO DAILY atenolol 25 mg PO DAILY atorvastatin 80 mg PO DAILY cranberry extract 425 mg PO BID cyclobenzaprine 10 mg PO Q8H PRN estradiol (Vagifem) 10 mcg vaginal 2XW fluticasone propion-salmeterol 115-21 mcg/actuation (Advair HFA) 2 puffs PO BID hydrocortisone 1% (Anti-Itch (hydrocortisone)) 1 appl topical TID PRN ipratropium-albuterol 20-100 mcg/actuation (Combivent Respimat) 1 puff inhalation QID linaclotide (Linzess) 72 mcg PO QAM meloxicam (Mobic) 7.5 mg PO DAILY montelukast 10 mg PO DAILY phenazopyridine (Pyridium) 200 mg PO BID PRN simethicone (Gas Relief (simethicone)) 180 mg PO BID PRN sulfamethoxazole-trimethoprim 800-160 mg (Bactrim DS) 1 tab PO BID HPI HPI Comments History of Present Illness Details 06/24/23---Brittanie is a 57-year-old female wh o presents today to the office for FU--urinary frequency. She has had recurrent UTIs. She has been prescribed vaginal estrogen therapy and I have discussed daily cranberry supplements. Urinalysis--nitrite positive. I will empirically start Bactrim. I have disc ussed suppressive antibiotic therapy Review of chart: 04/15/23--She presents today for FU, she had renal US completed. She is complaining of stress incontinence and wears a pad. She states that she has noted the urine to be cloudy. She still has some intermittent burning. She denies any history of breast cancer. She denies any abnormal Pap smears. She has discontinued smoking cigarettes in 2010. I reviewed renal US with pt, 04/08/23- WNL Evaluation today?UA? Nitrite positive, leukocytes: 15; blood: tr Plan: urine c/s, macrobid 100mg bid Cont Vagifem 10 mcg Vaginal suppositories twice a week. Advised the patient to limit caffeine intake. cranberry orderer, and pyridium prn, Follow-up in 1 months with nurse for UA check and bladder scan PVR, FU with me in 10 weeks. 06/24/2023--plan--Bactrim DS 1 tab twice a day for 5 days then continue daily PFSH Medical History History of COVID-19 Pulmonary nodule Elevated cholesterol HTN (hypertension) Diabetes Asthma-COPD overlap syndrome Aortic atherosclerosis Chest pain Surgical History History of colonoscopy Family History Mother HTN (hypertension) H/O heart artery stent Father No problems noted. Social History Alcohol intake: current Alcohol intake frequency: holidays/special occasions only Patient Tobacco Use Status: Former Tobacco user Quit Date: 2010 Tobacco use type: Cigarette Years Smoked: 28 +/- Current occupational status: employed Current occupation: [employer]rt handed Female Reproductive History Menstrual Age of Menarche: 13 Review of Systems Const All systems reviewed & are unremarkable except as noted in HPI and below Reports no additional complaints Eyes Reports no additional complaints ENT Reports no additional complaints Card Denies dyspnea Resp Denies cough and Denies dyspnea GI Reports no additional complaints Reports no additional complaints Musc Reports no additional complaints Skin/Breast Denies rash and Denies unusual bruising Neuro Reports no additional complaints Psych Reports no additional complaints Endo Reports no additional complaints Dario/Lymph Reports no additional complaints Aller/Immun Reports no additional complaints Results AMB Urinalysis, Automated UA Leukoctes 0 Teagan/uL Last Edit by SUMIT Rico on 06/24/23 12:14 UA Nitrite Positive Last Edit by SUMIT Rico on 06/24/23 12:14 UA Urobilinogen 0.2 mg/dL Last Edit by Luis Carlos Gan Rober on 06/24/23 12:1 4 UA Protein 0 mg/dL Last Edit by SUMIT Rico on 06/24/23 12:14 UA pH 6.0 Last Edit by Luis Carlos Gan Rober on 06/24/23 12:14 UA Blood 10 Graham/uL Last Edit by SUMIT Rico on 06/24/23 12:14 UA Specific [place] 1.020 Last Edit by Luis Carlos Gan Rober on 06/24/23 12: 14 UA Ketone Negative Last Edit by SUMIT Rico on 06/24/23 12:14 UA Bilirubin 0 mg/dL Last Edit by SUMIT Rico on 06/24/23 12:14 UA Glucose 0 mg/dL Last Edit by Luis Carlos Gan Rober on 06/24/23 12:14 Results Reviewed Results Reviewed: Laboratory Last Values Urine pH (Auto) 6.0 06/24/23 12:05 Specific [place] (Auto) 1.020 06/24/23 12:05 Urine Protein (Auto) 0 mg/dL 06/24/23 12:05 Glucose (UA)(Auto) 0 mg/dL 06/24/23 12:05 Urine Ketones (Auto) Negative 06/24/23 12:05 Urine Blood (Auto) 10 Graham/uL 06/24/23 12:05 Urine Nitrite (Auto) Positive 06/24/23 12:05 Urine Bilirubin (Auto) 0 mg/dL 06/24/23 12:05 Urine Urobilinogen (Auto) 0.2 mg/dL 06/24/23 12:05 Leukocyte Esterase (Auto) 0 Teagan/uL 06/24/23 12:05 Date of Service: 04/08/23 EXAMINATION: US RETROPERITONEAL COMPLETE (RENAL) CLINICAL INFORMATION: Urinary tract infection, site not specified. COMPARISON: None available. TECHNIQUE: Real-time imaging of the kidneys and bladder. Technically difficult study secondary to body habitus. FINDINGS: RIGHT KIDNEY: 12.6 x 4.4 x 6.4 cm (SAG x AP x TRV). The kidney is normal in size, contour, and echogenicity. Renal cortical thickness is normal. No calculi or focal parenchymal lesions. No hydronephrosis. LEFT KIDNEY: 13.0 x 5.8 x 6.5 cm (SAG x AP x TRV). The kidney is normal in size, contour, and echogenicity. Renal cortical thickness is normal. No calculi or focal parenchymal lesions. No hydronephrosis. BLADDER: Well distended and normal. Bilateral ureteral jets are demonstrated. Prevoid bladder volume is 299 mL. Postvoid bladder volume is 48 mL. IMPRESSION: Unremarkable renal ultrasound. Assessment & Plan Assessment & Plan (1) JOSIAH (stress urinary incontinence, female): Code(s): N39.3 - Stress incontinence (female) (male) (2) Urinary frequency: Code(s): R35.0 - Frequency of micturition (3) Vaginal atrophy: Code(s): N95.2 - Postmenopausal atrophic vaginitis (4) Recurrent UTI: Code(s): N39.0 - Urinary tract infection, site not specified Plan Bactrim DS 1 tab twice a day then continue daily Urine culture Continue Vagifem Orders: Orders AMB Urinalysis Automated 06/24/23 Z13.9 - Encounter for screening, unspecified Urine Culture 06/24/23 N39.0 - Urinary tract infection, site not specified Medications: New sulfamethoxazole-trimethoprim 800-160 mg (Bactrim DS) Instructions: use one tablet q 12 hrs for 5 days, then continue one tablet daily until completion 1 tab PO BID 45 tabs 0RF Patient Instructions: The patient had an opportunity to ask questions regarding treatment plan. All questions were answered. Imaging, Laboratory studies and physical exam results were discussed and reviewed in detail. No major barriers to understanding were identified. The patient expressed understanding and agreement with the above treatment plan. The patient is aware they should contact our office by phone for worsening of their current condition or the appearance of new symptoms. Compliance is encouraged with any medications and followup testing that is ordered. It is a privilege to be allowed the opportunity to participate in the urologic care of your patient. If you have any questions or concerns regarding treatment for the above conditions please do not hesitate to contact me. The office telephone contact is [phone]. This note is constructed in part using voice recognition software. While every effort has been made to ensure accuracy rheologist errors may have been included. Yours sincerely, Manjinder Reddy MD Coding Level of Care Code Est Pt Level 4 (43151) Diagnoses JOSIAH (stress urinary incontinence, female) N39.3 Urinary frequency R35.0 Vaginal atrophy N95.2 Recurrent UTI N39.0
== END 2023-06-24 12:37 | disposition home or self-care (01) ==
PROVIDERS: PCP Internal Medicine; Visit Provider Urology
DX: N39.3 Stress incontinence (female) (male) (principal); R35.0 Frequency of micturition; N95.2 Postmenopausal atrophic vaginitis; N39.0 Urinary tract infection, site not specified
CPT/HCPCS: 99214

== ENCOUNTER 2023-06-24 11:41 | Outpatient (REF) | payer MEDICAID, SELFPAY | END 2023-06-24 11:42 | disposition home or self-care (01) | LOC: HO.LAB 11:41 | PROVIDERS: PCP Internal Medicine; Visit Provider Urology | DX: N39.0 Urinary tract infection, site not specified (principal) | CPT/HCPCS: 81003; 87086; 87088; 87186; 99212 ==

== ENCOUNTER 2023-08-12 10:22 | Outpatient (AMB) | payer MEDICAID, SELFPAY ==
--- NOTE | 2023-08-12 10:37 | A.OFFVIS_ITS ---
Intake Visit Reasons: cysto Intake Note: Patient presents today for a CYSTOSCOPY Procedure: Meds: Cranberry Allergies to Antibiotic: Amoxicillin, Erythromycin & Lidocaine Blood Thinner: None Urinalysis test clear for Cysto? YES Disposable Uro-G HD Cystoscope Cannula: Lot: [id number] Exp: 03/10/2026 Digital Camera Technician Required: No Accompanied by: Self / Same As Patient Allergies amoxicillin Allergy (Intermediate, Verified 08/12/23 10:37) Rash latex Allergy (Intermediate, Verified 08/12/23 10:37) Rash erythromycin base Adverse Reaction (Intermediate, Verified 08/12/23 10:37) Gastrointestinal Upset Lidocaine Allergy (Unknown, Uncoded 08/12/23 10:37) Unknown HPI Comments Details: 08/12/2023--Brittanie is here for office cystoscopy. The patient has a history of nicotine dependence. She has had persistent bacteriuria. She was placed on a suppressive course of Bactrim. She states that her urine flow is improved in the urine is looking a clearer. Cystoscopy findings: Minimal erythematous changes behind the trigone consistent cystitis follicularis. No suspicious bladder lesions noted. Review of chart 06/24/23---Brittanie is a 57-year-old female who presents today to the office for FU--urinary frequency. She has had recurrent UTIs. She has been prescribed vaginal estrogen therapy and I have discussed daily cranberry supplements. Urinalysis--nitrite positive. I will empirically start Bactrim. I have discussed suppressive antibiotic therapy 04/15/23--She presents today for FU, she had renal US completed. She is complaining of stress incontinence and wears a pad. She states that she has noted the urine to be cloudy. She still has some intermittent burning. She denies any history of breast cancer. She denies any abnormal Pap smears. She has discontinued smoking cigarettes in 2010. Evaluation today?UA? Nitrite positive, leukocytes: 15; blood: tr Plan: urine c/s, macrobid 100mg bid Cont Vagifem 10 mcg Vaginal suppositories twice a week. Advised the patient to limit caffeine intake. cranberry orderer, and pyridium prn, Follow-up in 1 months with nurse for UA check and bladder scan PVR, FU with me in 10 weeks. I reviewed renal US with pt, 04/08/23- [facility]NL [facility] Medical History History of COVID-19 Pulmonary nodule Elevated cholesterol HTN (hypertension) Diabetes Asthma-COPD overlap syndrome Aortic atherosclerosis Chest pain Surgical History History of colonoscopy Family History Mother HTN (hypertension) H/O heart artery stent Father No problems noted. Social History Alcohol intake: current Alcohol intake frequency: holidays/special occasions only Patient Tobacco Use Status: Former Tobacco user Quit Date: 2010 Tobacco use type: Cigarette Years Smoked: 28 +/- Current occupational status: employed Current occupation: [employer]rt handed Female Reproductive History Menstrual Age of Menarche: 13 Review of Systems Const All systems reviewed & are unremarkable except as noted in HPI and below Reports no additional complaints Eyes Reports no additional complaints ENT Reports no additional complaints Card Reports no additional complaints Resp Reports no additional complaints GI Reports no additional complaints Reports as per HPI Musc Reports no additional complaints Skin/Breast Reports system reviewed and no additional complaints, except as documented Neuro Reports no additional complaints Psych Reports no additional complaints Endo Reports no additional complaints Dario/Lymph Reports no additional complaints Aller/Immun Reports no additional complaints Office Procedures Cystoscopy Consent Discussed risk and benefit or proposed procedure with the patient. Information consent for procedure given to the patient. Discussed technical aspects, risks, benefits and alternatives in full. Addressed all of the patient's questions and concerns regarding the procedure. The patient demonstrated knowledge and un derstanding. They wish to proceed with this procedure. Preparation The patient was prepped in the usual manner. A crna was present and in the room. Genitalia was prepped with betadine solution in a sterile manner. Lidocaine Jelly 2% was placed into the urethra and 16Fr flexible Olympus cystoscope was inserted into the meatus after adequate lubrication. Procedure Time out per protocol performed. Bladder Inspection Bladder Inspection: The bladder was inspected in its entirety with utilization retroflexion displaying: Tumor(s): No suspicious bladder lesions visualized Trabeculation: NA Mucosal Erthema: Present -moderate Orifices: normal shape and position Urethra: normal Cystoscopy findings: Erythematous changes consistent with cystitis, no suspicious bladder lesions visualized [id number] DISPOSABLE SCOPE URO-G FLEXIBLE SCOPE Procedure code (CPT) selection complete Office Meds naproxen 500 mg tablet Performing Provider: Manjinder Reddy MD Performing Location: [facility] [place] Administered by: Joseph Hill LPN on 08/12/23 11:01 Dose Route Admin Location Dispensed Lot Number Expiration Date NDC Tick Eradicator 500 mg PO 1 tab ciprofloxacin HCl 500 mg tablet Performing Provider: Manjinder Reddy MD Performing Location: [facility] Urology [facility] Administered by: Joseph Hill LPN on 08/12/23 11:01 Dose Route Admin Location Dispensed Lot Number Expiration Date NDC Tick Eradicator 500 mg PO 1 tab Results AMB Urinalysis, Automated UA Leukoctes 0 Teagan/uL Last Edit by SUMIT Rico on 08/12/23 10:55 UA Nitrite Negative Last Edit by SUMIT Rico on 08/12/23 10:55 UA Urobilinogen 0.2 mg/dL Last Edit by SUMIT Rico on 08/12/23 10:5 5 UA Protein 0 mg/dL Last Edit by SUMIT Rico on 08/12/23 10:55 UA pH 6.0 Last Edit by SUMIT Rico on 08/12/23 10:55 UA Blood 0 Graham/uL Last Edit by SUMIT Rico on 08/12/23 10:55 UA Specific Maize 1.010 Last Edit by SUMIT Rico on 08/12/23 10: 55 UA Ketone Negative Last Edit by SUMIT Rico on 08/12/23 10:55 UA Bilirubin 0 mg/dL Last Edit by SUMIT Rico on 08/12/23 10:55 UA Glucose 0 mg/dL Last Edit by SUMIT Rico on 08/12/23 10:55 Results Reviewed Results Reviewed: Laboratory Last Values Urine pH (Auto) 6.0 08/12/23 10:54 Specific [place] (Auto) 1.010 08/12/23 10:54 Urine Protein (Auto) 0 mg/dL 08/12/23 10:54 Glucose (UA)(Auto) 0 mg/dL 08/12/23 10:54 Urine Ketones (Auto) Negative 08/12/23 10:54 Urine Blood (Auto) 0 Graham/uL 08/12/23 10:54 Urine Nitrite (Auto) Negative 08/12/23 10:54 Urine Bilirubin (Auto) 0 mg/dL 08/12/23 10:54 Urine Urobilinogen (Auto) 0.2 mg/dL 08/12/23 10:54 Leukocyte Esterase (Auto) 0 Teagan/uL 08/12/23 10:54 Date of Service: 04/08/23 EXAMINATION: US RETROPERITONEAL COMPLETE (RENAL) CLINICAL INFORMATION: Urinary tract infection, site not specified. COMPARISON: None available. TECHNIQUE: Real-time imaging of the kidneys and bladder. Technically difficult study secondary to body habitus. FINDINGS: RIGHT KIDNEY: 12.6 x 4.4 x 6.4 cm (SAG x AP x TRV). The kidney is normal in size, contour, and echogenicity. Renal cortical thickness is normal. No calculi or focal parenchymal lesions. No hydronephrosis. LEFT KIDNEY: 13.0 x 5.8 x 6.5 cm (SAG x AP x TRV). The kidney is normal in size, contour, and echogenicity. Renal cortical thickness is normal. No calculi or focal parenchymal lesions. No hydronephrosis. BLADDER: Well distended and normal. Bilateral ureteral jets are demonstrated. Prevoid bladder volume is 299 mL. Postvoid bladder volume is 48 mL. IMPRESSION: Unremarkable renal ultrasound. Assessment & Plan Assessment & Plan (1) JOSIAH (stress urinary incontinence, female): Code(s): N39.3 - Stress incontinence (female) (male) Category: Medical (2) Urinary frequency: Code(s): R35.0 - Frequency of micturition Category: Medical (3) Vaginal atrophy: Code(s): N95.2 - Postmenopausal atrophic vaginitis Category: Medical (4) Recurrent UTI: Code(s): N39.0 - Urinary tract infection, site not specified Category: Medical Plan Continue Vagifem. Follow-up in 6 months Orders: Orders AMB Urinalysis Automated 08/12/23 Z13.9 - Encounter for screening, unspecified AMB Cystoscopy 08/12/23 R35.0 - Frequency of micturition, N39.3 - Stress incontinence (female) (male), N39.0 - Urinary tract infection, site not specified Patient Instructions: The patient had an opportunity to ask questions regarding treatment plan. The patient expressed understanding and agreement with the above treatment plan. The patient is aware they should contact our office by phone for worsening of their current condition or the appearance of new symptoms. Compliance is encouraged with any medications and followup testing that is ordered. It is a privilege to be allowed the opportunity to participate in the urologic care of your patient. If you have any questions or concerns regarding treatment for the above conditions please do not hesitate to contact me. The office telephone contact is [phone]. This note is constructed in part using voice recognition software. While every effort has been made to ensure accuracy manufacturing laborer errors may have been included. Yours sincerely, Manjinder Reddy MD Coding Level of Care Code Procedure Only Diagnoses JOSIAH (stress urinary incontinence, female) N39.3 Urinary frequency R35.0 Vaginal atrophy N95.2 Recurrent UTI N39.0 CPT Codes Cystoscopy - CPT: 11010-[id number] ([id number])
== END 2023-08-12 11:39 | disposition home or self-care (01) ==
PROVIDERS: PCP Internal Medicine; Visit Provider Urology
DX: R35.0 Frequency of micturition (principal); N39.3 Stress incontinence (female) (male); N39.0 Urinary tract infection, site not specified; Z13.9 Encounter for screening, unspecified
CPT/HCPCS: 52000

== ENCOUNTER → 2023-08-12 10:22 | Outpatient (BNVA) | payer MEDICAID, SELFPAY | PROVIDERS: PCP Internal Medicine; Visit Provider Urology | DX: N39.3 Stress incontinence (female) (male) (principal); R35.0 Frequency of micturition; N95.2 Postmenopausal atrophic vaginitis; N39.0 Urinary tract infection, site not specified | CPT/HCPCS: 52000; 81003 ==

== ENCOUNTER 2024-03-02 16:26 | Outpatient (REF) | payer OTHER, SELFPAY ==
[2024-03-02 18:39] LABS: TSH reflex Free T4 1.91 uIU/mL (0.32-4.0)
[2024-03-02 19:48] LABS: Alanine Aminotransferase 30 U/L (0-31); Alkaline Phosphatase 83 U/L (39-117); Anion Gap 11 (12-20); Aspartate Amino Transferase 24 U/L (5-31); Bilirubin Total 0.4 mg/dL (0.0-1.0); Blood Urea Nitrogen 15 mg/dL (9-16); Calcium 9.7 mg/dL (8.4-10.2); Carbon Dioxide 30 mmol/L (22-29); Chloride 98 mmol/L (96-108); Estimated Glomerular Filt Rate > 60; Glucose Random 216 mg/dL (60-115); Potassium 2.9 mmol/L (3.3-5.1); Sodium 136 mmol/L (135-145); Total Protein 7.2 g/dL (6.5-8.0)
[2024-03-05 14:18] LABS: RPR Rapid Plasma Reagin NON-REACTIVE (NON-REACTIVE)
== END 2024-03-02 16:27 | disposition home or self-care (01) ==
LOC: HO.CHCLDS 16:26
PROVIDERS: Visit Provider Internal Medicine
DX: R41.3 Other amnesia (principal)
CPT/HCPCS: 36415; 80053; 84443; 86592

== ENCOUNTER 2024-03-08 16:29 | Outpatient (REF) | payer OTHER, SELFPAY ==
[2024-03-08 18:41] LABS: Anion Gap 11 (12-20); Blood Urea Nitrogen 14 mg/dL (9-16); Calcium 9.5 mg/dL (8.4-10.2); Carbon Dioxide 30 mmol/L (22-29); Chloride 101 mmol/L (96-108); Estimated Glomerular Filt Rate > 60; Glucose Random 149 mg/dL (60-115); Potassium 3.1 mmol/L (3.3-5.1); Sodium 139 mmol/L (135-145)
== END 2024-03-08 16:30 | disposition home or self-care (01) ==
LOC: HO.CHCLDS 16:29
PROVIDERS: Registered Nurse; PCP Internal Medicine; Visit Provider Internal Medicine
DX: E87.6 Hypokalemia (principal)
CPT/HCPCS: 36415; 80048; 83735

== ENCOUNTER 2024-03-23 15:26 | Outpatient (REF) | payer OTHER, SELFPAY ==
[2024-03-23 18:38] LABS: Potassium 2.8 mmol/L (3.3-5.1)
== END 2024-03-23 15:27 | disposition home or self-care (01) ==
LOC: HO.CHCLDS 15:26
PROVIDERS: Visit Provider Internal Medicine
DX: E87.6 Hypokalemia (principal)
CPT/HCPCS: 36415; 84132

== ENCOUNTER 2024-03-23 19:14 | Emergency (ER) | payer OTHER, SELFPAY ==
--- NOTE | 2024-03-23 | ECG_ITS ---
Test Reason : LOW POTASSIUM Blood Pressure : / mmHG Vent. Rate : 070 BPM Atrial Rate : 070 BPM P-R Int : 194 ms QRS Dur : 102 ms QT Int : 430 ms P-R-T Axes : 000 -08 -02 degrees QTc Int : 464 ms Normal sinus rhythm Low voltage QRS Borderline ECG No previous ECGs available Referred By: Generic ED Physician Electronically Signed By:Isaiah Conde
[2024-03-23 19:36] VITALS: BP 119/56; PULSE 69; RESP 16; TEMP 36.7; O2SAT 96; BMI 35.9
[2024-03-23 20:00] LABS: MANUAL DIFF FLAG NO
[2024-03-23 20:01] LABS: Basophils Absolute Auto 0.1 X10*3/uL (0.0-0.2); Basophils Percent Auto 0.9 % (0-2); Eosinophils Absolute Auto 0.3 X10*3/uL (0.0-0.4); Eosinophils Percent Auto 2.5 % (0-4); Hematocrit 38.6 % (37.0-47.0); Hemoglobin 13.1 g/dl (12.0-16.0); Imm Gran Abs Auto 0.04 X10*3/uL (0.00-0.03); Imm Gran Pct Auto 0.4 % (0.0-0.4); Lymphocytes Percent Auto 38.2 % (20-40); Mean Corpuscular HGB Conc 33.9 g/dl (31.0-35.0); Mean Corpuscular Hemoglobin 28.9 pg (27.0-33.0); Mean Corpuscular Volume 85.2 fL (80.0-98.0); Mean Platelet Volume 10.2 fL (9.4-12.3); Monocytes Absolute Auto 0.8 X10*3/uL (0.1-1.2); Monocytes Percent Auto 7.8 % (2-11); Neutrophils Absolute Auto 5.3 x10*3/uL (2.0-8.3); Neutrophils Percent Auto 50.2 % (45-73); Platelet Count 326 X10*3/uL (160-400); Red Blood Count 4.53 X10*6/uL (4.20-5.50); White Blood Count 10.5 X10*3/uL (4.8-10.8)
[2024-03-23 20:20] LABS: Anion Gap 10 (12-20)
[2024-03-23 20:22] LABS: Troponin-I High Sensitivity < 2.7 ng/L (<3.5-17.0)
[2024-03-23 20:25] LABS: Alanine Aminotransferase 28 U/L (0-31); Albumin Level 3.9 g/dL (3.5-5.0); Alkaline Phosphatase 89 U/L (39-117); Aspartate Amino Transferase 27 U/L (5-31); Bilirubin Total 0.4 mg/dL (0.0-1.0); Blood Urea Nitrogen 13 mg/dL (9-16); Calcium 9.4 mg/dL (8.4-10.2); Carbon Dioxide 32 mmol/L (22-29); Chloride 101 mmol/L (96-108); Creatinine Clr Calc Pharmacy 106.8; Estimated Glomerular Filt Rate > 60; Glucose Random 195 mg/dL (60-115); Lipase 19 U/L (8-78); Magnesium 1.8 mg/dL (1.6-2.6); Sodium 140 mmol/L (135-145); Total Protein 7.1 g/dL (6.5-8.0)
[2024-03-23 21:19] VITALS: BP 110/63; PULSE 78; RESP 16; TEMP 36.8; O2SAT 96
[2024-03-23] MEDS: Potassium Bicarbonate/Cit AC 25 MEQ TABLET.EFF 50 MEQ PO (21:31)
--- NOTE | 2024-03-23 21:46 | ED.GENADULT ---
HPI - General Adult General Chief complaint: Recheck/Abnormal Lab/Rx Stated complaint: low potassium Time Seen by Provider: 03/23/24 21:18 Source: patient Mode of arrival: ambulatory Limitations: no limitations History of Present Illness ED Provider: HPI narrative: Patient's history of IBS hypotension diabetes on chlorthalidone for leg edema comes here for potassium level after it done as outpatient patient does have low potassium for couple of weeks because of diarrhea on potassium tablets which did not take it for last 2 days no leg cramps no chest pain no vomiting patient otherwise feels normal after coming here potassium level was 3 Related Data Home Medications ?Medication ?Instructions ?Recorded ?Confirmed albuterol sulfate 90 mcg/actuation 2 puff inhalation Q6H PRN Wheezing 03/06/20 06/24/23 aerosol inhaler (ProAir HFA) amlodipine 2.5 mg tablet (Norvasc) 2.5 mg PO DAILY 03/06/20 06/24/23 atenolol 25 mg tablet 25 mg PO DAILY 03/06/20 06/24/23 atorvastatin 80 mg tablet 80 mg PO DAILY 03/06/20 06/24/23 hydrocortisone 1 % topical cream 1 applic topical TID PRN Itching 03/06/20 06/24/23 (Anti-Itch (hydrocortisone)) ipratropium 20 mcg-albuterol 100 1 puff inhalation QID 03/06/20 06/24/23 mcg/actuation mist for inhalation (Combivent Respimat) meloxicam 7.5 mg tablet (Mobic) 7.5 mg PO DAILY 03/06/20 06/24/23 simethicone 180 mg capsule (Gas 180 mg PO BID PRN bloating 03/06/20 06/24/23 Relief (simethicone)) Previous Rx's ?Medication ?Instructions ?Recorded cyclobenzaprine 10 mg tablet 10 mg PO Q8H PRN Muscle spasm #14 04/25/21 tabs cranberry extract 425 mg capsule 425 mg PO BID #60 caps 04/15/23 phenazopyridine 200 mg tablet 200 mg PO BID PRN urinary burning 04/15/23 (Pyridium) #12 tabs sulfamethoxazole 800 1 tab PO BID #45 tabs 06/24/23 mg-trimethoprim 160 mg tablet (Bactrim DS) estradiol 10 mcg vaginal tablet 10 mcg vaginal 2XW #24 tabs 03/18/24 linaclotide 72 mcg capsule 72 mcg PO QAM #30 caps 08/25/23 (Linzess) fluticasone propionate 115 2 puff PO BID #12 grams 09/20/23 mcg-salmeterol 21 mcg/actuation HFA inhaler (Advair HFA) montelukast 10 mg tablet 10 mg PO DAILY #30 tabs 01/06/24 fluticasone propionate 115 2 puff inhalation BID #12 grams 03/23/24 mcg-salmeterol 21 mcg/actuation HFA inhaler (Advair HFA) Allergies Allergy/AdvReac Type Severity Reaction Status Date / Time amoxicillin Allergy Intermediate Rash Verified 03/23/24 19:40 latex Allergy Intermediate Rash Verified 03/23/24 19:40 erythromycin base AdvReac Intermediate Gastrointestinal Verified 03/23/24 19:40 Upset Lidocaine Allergy Unknown Unknown Uncoded 08/12/23 10:37 Review of Systems Review of Systems: Yes all other systems are reviewed and are negative PMFSH Past Medical History Medical History History of COVID-19 Pulmonary nodule Elevated cholesterol HTN (hypertension) Diabetes Asthma-COPD overlap syndrome Aortic atherosclerosis Chest pain Surgical History History of colonoscopy Family History Family History Mother HTN (hypertension) H/O heart artery stent Father No problems noted. Social History Social History Alcohol intake: current Alcohol intake frequency: holidays/special occasions only Patient Tobacco Use Status: Former Tobacco user Tobacco use type: Cigarette Years Smoked: 28 +/- Advance Directives: No Advance Directives Information Provided: No Do you have a plan to hurt others: No Plan Current occupational status: employed Current occupation: [employer] handed Physical Exam ED Vital Signs: Vital Signs - 24 hr 03/23/24 19:36 03/23/24 21:19 03/23/24 22:01 Temperature 98.1 F 98.3 F 97.9 F Pulse Rate 69 78 68 Respiratory Rate 16 16 20 Blood Pressure 119/56 L 110/63 127/62 Pulse Oximetry 96 96 98 Oxygen Delivery Method Room Air Room Air Room Air 03/23/24 22:02 Temperature 97.9 F Pulse Rate 68 Respiratory Rate 20 Blood Pressure 127/62 Pulse Oximetry 98 Oxygen Delivery Method Room Air BMI result Body Mass Index 35.9 Appearance: Alert. Oriented X3. No acute distress. Eyes: PERRLA, No Nystagmus ENT: Pharynx normal. Oral Mucosa moist Neck: Normal inspection. Neck supple. CVS: Normal heart rate and rhythm. Pulses normal. Respiratory: No respiratory distress. Equal air entry bilateral, no wheezing/rales/rhonchi Abdomen: Soft and nontender. Bowel sounds are present, no mass palpable, no CVA tenderness Skin: Skin warm and dry. Normal skin color. Normal skin turgor. Extremities: Trace lower extremity edema. No calf tenderness Neuro: Oriented X 3. No motor deficit. No sensory deficit.No cerebellar signs , cranial nerves II-XII intact Medications Administered Discontinued Medications Generic Name Dose Route Start Last Admin Trade Name Freq PRN Reason Stop Dose Admin Potassium Bicarbonate 50 meq 03/23/24 21:19 03/23/24 21:31 Potassium Bicarbonate/Cit Ac 25 Meq Tablet.Eff PO 03/23/24 21:20 50 meq ONCE ONE Administration Medical Decision Making Medical Decision Making [facility] Narrative: Patient with mild hypokalemia will give p.o. potassium advised to stop chlorthalidone continue potassium supplements at home will discharge her home advised follow up as outpatient EKG without any ischemic/ hypokalemic c changes Differential Diagnosis Differential Diagnoses: The differential diagnosis associated with the presentation includes Lab Data [facility] Lab Attestation statement: I reviewed the patient's lab results. 03/23/24 19:56 03/23/24 19:56 Labs: Lab Results 03/23/24 Range/Units 19:56 WBC 10.5 (4.8-10.8) X10*3/uL RBC 4.53 (4.20-5.50) X10*6/uL Hgb 13.1 (12.0-16.0) g/dl Hct 38.6 (37.0-47.0) % MCV 85.2 (80.0-98.0) fL MCH 28.9 (27.0-33.0) pg MCHC 33.9 (31.0-35.0) g/dl RDW 13.0 (11.0-16.0) % Plt Count 326 (160-400) X10*3/uL MPV 10.2 (9.4-12.3) fL Immature Gran % (Auto) 0.4 (0.0-0.4) % Neut % (Auto) 50.2 (45-73) % Lymph % (Auto) 38.2 (20-40) % [place] % (Auto) 7.8 (2-11) % Eos % (Auto) 2.5 (0-4) % Baso % (Auto) 0.9 (0-2) % Lymph # (Auto) 4.0 (1.2-4.9) X10*3/uL [place] # (Auto) 0.8 (0.1-1.2) X10*3/uL Eos # (Auto) 0.3 (0.0-0.4) X10*3/uL Baso # (Auto) 0.1 (0.0-0.2) X10*3/uL Abs Immat Gran (auto) 0.04 H (0.00-0.03) X10*3/uL Absolute Neuts (auto) 5.3 (2.0-8.3) x10*3/uL Absolute Nucleated RBC 0.000 (0.0-0.012) X10*3/uL Nucleated RBC % (auto) 0.0 (0.0-0.2) /100WBC Sodium 140 (135-145) mmol/L Potassium 3.0 L (3.3-5.1) mmol/L Chloride 101 (96-108) mmol/L Carbon Dioxide 32 H (22-29) mmol/L Anion Gap 10 L (12-20) BUN 13 (9-16) mg/dL Creatinine 0.72 (0.5-1.4) mg/dL Estim Creat Clear Calc 106.8 Estimated GFR > 60 Random Glucose 195 H (60-115) mg/dL Calcium 9.4 (8.4-10.2) mg/dL Magnesium 1.8 (1.6-2.6) mg/dL Total Bilirubin 0.4 (0.0-1.0) mg/dL AST 27 (5-31) U/L ALT 28 (0-31) U/L Alkaline Phosphatase 89 (39-117) U/L Troponin I High Sens < 2.7 (<3.5-17.0) ng/L Total Protein 7.1 (6.5-8.0) g/dL Albumin 3.9 (3.5-5.0) g/dL Lipase 19 (8-78) U/L Independent Interpretation I performed an independent interpretation of an: EKG Interpretation: Normal sinus rhythm heart rate 70 beats per minute normal interval normal axis no acute STT wave changes no acute ischemia Discharge Plan Discharge Clinical Impression: Chronic hypokalemia Patient Disposition: Home, Self-Care Instructions: Potassium Content of Foods List (ED), Hypokalemia (ED) Additional Instructions: Stop taking chlorthalidone Start eating containing high potassium Continue potassium tablets daily Recheck potassium level in 1 week Follow with your PCP Prescriptions: New fluticasone propion-salmeterol [Advair HFA] 115-21 mcg/actuation HFA aerosol inhaler 2 puff inhalation BID Qty: 12 2RF Rx Instructions: administer with spacer No Action estradiol 10 mcg tablet 10 mcg vaginal 2XW Qty: 24 1RF Linzess 72 mcg capsule 72 mcg PO QAM Qty: 30 5RF Advair HFA 115-21 mcg/actuation HFA aerosol inhaler 2 puff PO BID Qty: 12 6RF montelukast 10 mg tablet 10 mg PO DAILY Qty: 30 7RF cyclobenzaprine 10 mg tablet 10 mg PO Q8H PRN (Reason: Muscle spasm) Qty: 14 0RF atenolol 25 mg tablet 25 mg PO DAILY hydrocortisone [Anti-Itch (HC)] 1 % cream 1 applic topical TID PRN (Reason: Itching) simethicone [Gas Relief (simethicone)] 180 mg capsule 180 mg PO BID PRN (Reason: bloating) meloxicam [Mobic] 7.5 mg tablet 7.5 mg PO DAILY albuterol sulfate [ProAir HFA] 90 mcg/actuation HFA aerosol inhaler 2 puff inhalation Q6H PRN (Reason: Wheezing) atorvastatin 80 mg tablet 80 mg PO DAILY Combivent Respimat 20-100 mcg/actuation mist 1 puff inhalation QID Rx Instructions: space evenly during waking hours amlodipine [Norvasc] 2.5 mg tablet 2.5 mg PO DAILY sulfamethoxazole-trimethoprim [Bactrim DS] 800-160 mg tablet 1 tab PO BID Qty: 45 0RF Rx Instructions: Instructions: use one tablet q 12 hrs for 5 days, then continue one tablet daily until completion cranberry extract 425 mg capsule 425 mg PO BID Qty: 60 5RF Rx Instructions: administer with meals phenazopyridine [Pyridium] 200 mg tablet 200 mg PO BID PRN (Reason: urinary burning) Qty: 12 1RF Interventions: ED Discharge Assessment Last Done: 03/23/24 22:02 Discharge Date/Time: 03/23/24 22:08 Print Language: Guamanian
[2024-03-23 22:01] VITALS: BP 127/62; PULSE 68; RESP 20; TEMP 36.6; O2SAT 98
[2024-03-23 22:02] VITALS: BP 127/62; PULSE 68; RESP 20; TEMP 36.6; O2SAT 98
== END 2024-03-23 22:08 | disposition home or self-care (01) ==
PROVIDERS: Emergency Provider Internal Medicine; PCP Internal Medicine
DX: E87.6 Hypokalemia (principal); E11.9 Type 2 diabetes mellitus without complications; I10 Essential (primary) hypertension; E78.00 Pure hypercholesterolemia, unspecified; Z87.891 Personal history of nicotine dependence; Z79.02 Long term (current) use of antithrombotics/antiplatelets; Z79.899 Other long term (current) drug therapy
CPT/HCPCS: 36415; 80053; 83690; 83735; 84484; 85025; 93005; 99283; 99284

== ENCOUNTER → 2024-03-23 19:41 | Outpatient (BNV) | payer OTHER, SELFPAY | PROVIDERS: Emergency Provider Internal Medicine; PCP Internal Medicine; Visit Provider Internal Medicine Cardiovascular Disease | DX: R94.31 Abnormal electrocardiogram [ECG] [EKG] (principal) | CPT/HCPCS: 93010 ==

== ENCOUNTER 2024-03-30 13:02 | Outpatient (AMB) | payer OTHER, SELFPAY ==
[2024-03-30 13:04] VITALS: BP 110/62; PULSE 77; O2SAT 96; BMI 36.1
--- NOTE | 2024-03-30 13:04 | MHC.OFFVIS ---
Vital Signs 03/30/24 13:04 Height 5 ft 7 in Weight 230 lb 12.677 oz BMI 36.1 BP 110/62 Blood Pressure Location Rt brachial Position Sitting Pulse 77 Pulse Source Doppler Pulse Oximetry (%) 96 Oxygen Delivery Method Room Air Intake Visit Reasons: copd Allergies amoxicillin Allergy (Intermediate, Verified 03/30/24 13:10) Rash latex Allergy (Intermediate, Verified 03/30/24 13:10) Rash erythromycin base Adverse Reaction (Intermediate, Verified 03/30/24 13:10) Gastrointestinal Upset Lidocaine Allergy (Unknown, Uncoded 08/12/23 10:37) Unknown HPI HPI copd: Details: 58 y/o lady former 30 pack years smoker, quit 2010, followed for moderate to severe asthma and environmental allergies. Her symptoms have been well controlled on regimen of Advair and albuterol MDI. Her allergies have been reasonably well controlled on Singulair until paroxysmally 1 week prior when she started getting more upper respiratory symptoms and is now having cough productive of greenish sputum and nasal congestion. [facility] Medical History History of COVID-19 Pulmonary nodule Elevated cholesterol HTN (hypertension) Diabetes Asthma-COPD overlap syndrome Aortic atherosclerosis Chest pain Surgical History History of colonoscopy Family History Mother HTN (hypertension) H/O heart artery stent Father No problems noted. Social History Alcohol intake: current Alcohol intake frequency: holidays/special occasions only Patient Tobacco Use Status: Former Tobacco user Tobacco use type: Cigarette Years Smoked: 28 +/- Current occupational status: employed Current occupation: [employer] handed Female Reproductive History Menstrual Age of Menarche: 13 Review of Systems Const Denies daytime sleepiness, Denies excessive sweating, Denies fatigue, Denies fever(s), Denies lethargy, Denies malaise, Denies night sweats, Denies snoring and Denies weight loss Eyes Denies blurry vision and Denies itchy eyes ENT Reports nasal congestion, Reports post nasal drip, Denies sinus pain, Denies sinus pressure and Denies other ( Thrush) Card Denies chest pain, Denies pedal edema, Denies dyspnea, Denies orthopnea and Denies paroxysmal nocturnal dyspnea Resp Reports cough, Denies hemoptysis, Reports excessive phlegm production, Denies dyspnea, Denies snoring and Reports wheezing GI Denies abdominal pain and Denies heartburn Musc Denies myalgias, Denies arthralgias and Denies joint swelling Skin/Breast Denies rash Neuro Denies memory loss and Denies seizure-like activity Psych Denies abnormal sleep pattern, Denies anxiety and Denies memory loss Endo Denies excessive sweating, Denies fatigue and Denies heat intolerance Dario/Lymph Denies easy bruising Aller/Immun Denies itchy eyes, Denies seasonal rhinorrhea and Reports wheezing Physical Exam Vital Signs: Last Vital Signs Pulse 77 03/30/24 13:04 BP 110/62 03/30/24 13:04 Pulse Ox 96 03/30/24 13:04 Oxygen Delivery Method Room Air 03/30/24 13:04 BMI result Body Mass Index 36.1 Const General: no acute distress and alert Nutritional Appearance: obese Orientation/consciousness: Other orientation findings ( oriented) HEENT Head: Yes atraumatic Eyes General: appearance normal, both eyes and all related structures Sclerae: sclerae normal EOM: EOMs intact bilaterally Neck Neck: Yes supple Lymphatic: no lymphadenopathy noted Resp Effort & Inspection: normal respiratory effort and no use of accessory muscles Auscultation: clear to auscultation bilaterally Cardio Rate: regular rate Rhythm: regular rhythm Heart sounds: no gallops, no murmurs and no rubs Skin General skin exam: other ( warm) Extrem General: No clubbing, No cyanosis and No edema Assessment & Plan Assessment & Plan (1) Asthma-COPD overlap syndrome: Code(s): J44.9 - Chronic obstructive pulmonary disease, unspecified Category: Medical Plan: Baseline controlled on regimen of Advair and albuterol MDI. Continue current regimen. Now with upper respiratory type bronchitic symptoms, will treat with a course of Levaquin and also codeine for symptomatic relief. (2) Environmental allergies: Code(s): Z91.09 - Other allergy status, other than to drugs and biological substances Category: Medical Plan: Well controlled on Singulair. Continue current regimen. Medications: New levofloxacin 750 mg PO DAILY 7 tabs 0RF codeine-guaifenesin 10-100 mg/5 mL 10 mL PO Q4-6H PRN 473 mL 0RF cough Coding Level of Care Code Est Pt Level 4 (12982) Complex EM visit Add On G2211 Diagnoses Asthma-COPD overlap syndrome J44.9 Environmental allergies Z91.09
== END 2024-03-30 13:21 | disposition home or self-care (01) ==
PROVIDERS: PCP Internal Medicine; Visit Provider Internal Medicine Pulmonary Disease
DX: J44.9 Chronic obstructive pulmonary disease, unspecified (principal); Z91.09 Other allergy status, other than to drugs and biological substances
CPT/HCPCS: 99214; G2211

== ENCOUNTER → 2024-03-30 13:02 | Outpatient (BNVA) | payer OTHER, SELFPAY | PROVIDERS: PCP Internal Medicine; Visit Provider Internal Medicine Pulmonary Disease | DX: J44.9 Chronic obstructive pulmonary disease, unspecified (principal); Z91.09 Other allergy status, other than to drugs and biological substances; Z87.891 Personal history of nicotine dependence | CPT/HCPCS: 99212 ==

== ENCOUNTER 2024-03-31 10:11 | Outpatient (REF) | payer OTHER, SELFPAY ==
[2024-03-31 11:24] LABS: Alanine Aminotransferase 26 U/L (0-31); Alkaline Phosphatase 85 U/L (39-117); Anion Gap 12 (12-20); Aspartate Amino Transferase 25 U/L (5-31); Bilirubin Total 0.4 mg/dL (0.0-1.0); Blood Urea Nitrogen 9 mg/dL (9-16); Calcium 9.2 mg/dL (8.4-10.2); Carbon Dioxide 30 mmol/L (22-29); Chloride 105 mmol/L (96-108); Cholesterol 95 mg/dL (<200); Estimated Glomerular Filt Rate > 60; Glucose Random 108 mg/dL (60-115); HDL Cholesterol 34 mg/dL (>40); LDL Cholesterol Calculated 50 mg/dL (<100); Potassium 4.1 mmol/L (3.3-5.1); Sodium 143 mmol/L (135-145); Total Protein 7.2 g/dL (6.5-8.0); Triglycerides 55 mg/dL (<150)
[2024-03-31 11:41] LABS: HIV AB/AG Nonreactive (Nonreactive); HIV Num 1 0.06 S/CO (0.00-0.99); ~HepC Num1 0.49 S/CO (0.00-0.79); ~Hepatitis C Antibody Nonreactive (Nonreactive)
== END 2024-03-31 10:12 | disposition home or self-care (01) ==
LOC: HO.LAB 10:11
PROVIDERS: PCP Internal Medicine; Referring Provider Internal Medicine; Visit Provider Emergency Medicine
DX: Z00.00 Encounter for general adult medical examination without abnormal findings (principal); E11.9 Type 2 diabetes mellitus without complications; I10 Essential (primary) hypertension; Z86.39 Personal history of other endocrine, nutritional and metabolic disease
CPT/HCPCS: 36415; 80053; 80061; 86803; 87389

== ENCOUNTER 2024-05-07 14:02 | Outpatient (REF) | payer OTHER, SELFPAY ==
--- NOTE | ~2024-05-07 | XR_ITS ---
EXAMINATION: XR HIP 2 OR MORE VIEWS RIGHT HISTORY: right hip pain x 2 years. COMPARISON: There are no prior studies for comparison. FINDINGS: Two views of the right hip are submitted. Osseous mineralization is normal. There is no fracture or dislocation. There is mild joint space narrowing. The soft tissues are unremarkable. XR/XR hip RT min 2V IMPRESSION: Mild joint space narrowing. Electronically signed by: Emory Lyon MD 05/07/2024 02:41 PM EST
--- NOTE | ~2024-05-07 | XR_ITS ---
EXAMINATION: XR HIP 2 OR MORE VIEWS LEFT HISTORY: Left hip pain x 2 years. COMPARISON: There are no prior studies for comparison. FINDINGS: Two views of the left hip are submitted. Osseous mineralization is normal. There is no fracture or dislocation. The joint space is maintained. The soft tissues are unremarkable. XR/XR hip LT min 2V IMPRESSION: Unremarkable examination of the left hip. Electronically signed by: Emory Lyon MD 05/07/2024 02:41 PM KEVIN
== END 2024-05-07 14:03 | disposition home or self-care (01) ==
LOC: HO.XRAY 14:02
PROVIDERS: PCP Internal Medicine; Visit Provider Internal Medicine
DX: M25.552 Pain in left hip (principal); M25.551 Pain in right hip; E11.9 Type 2 diabetes mellitus without complications
CPT/HCPCS: 73502

== ENCOUNTER → 2024-05-07 14:09 | Outpatient (BNV) | payer OTHER, SELFPAY | PROVIDERS: PCP Internal Medicine; Visit Provider Radiology Diagnostic Radiology | DX: M25.551 Pain in right hip (principal); M25.552 Pain in left hip | CPT/HCPCS: 73502 ==

== ENCOUNTER 2024-06-22 11:00 | Outpatient (RCR) | payer MEDICAID, SELFPAY | END 2024-06-22 11:49 | disposition home or self-care (01) | LOC: HO.PTCHIC 11:00 | PROVIDERS: PCP Internal Medicine; Visit Provider Internal Medicine | DX: M25.552 Pain in left hip (principal); M25.551 Pain in right hip | CPT/HCPCS: 97110; 97161 ==

== ENCOUNTER 2025-01-07 15:36 | Outpatient (REF) | payer MEDICAID, SELFPAY | END 2025-01-07 15:37 | disposition home or self-care (01) | LOC: HO.CHCLNP 15:36 | PROVIDERS: Visit Provider Internal Medicine | DX: N39.0 Urinary tract infection, site not specified (principal); B96.20 Unspecified Escherichia coli [E. coli] as the cause of diseases classified elsewhere | CPT/HCPCS: 87086; 87088; 87186 ==

== ENCOUNTER 2025-02-12 09:51 | Outpatient (AMB) | payer MEDICAID, SELFPAY ==
[2025-02-12 10:12] VITALS: BP 122/67; PULSE 86; O2SAT 96; BMI 38.2
--- NOTE | 2025-02-12 10:12 | A.OFFVIS_ITS ---
Vital Signs 02/12/25 10:12 Height 5 ft 7 in Weight 244 lb BMI 38.2 BP 122/67 Blood Pressure Location Rt brachial Position Sitting Pulse 86 Pulse Source Pulse Oximeter Pulse Oximetry (%) 96 Oxygen Delivery Method Room Air Intake Visit Reasons: COPD Allergies amoxicillin Allergy (Intermediate, Verified 02/12/25 10:17) Rash latex Allergy (Intermediate, Verified 02/12/25 10:17) Rash erythromycin base Adverse Reaction (Intermediate, Verified 02/12/25 10:17) Gastrointestinal Upset Lidocaine Allergy (Unknown, Uncoded 08/12/23 10:37) Unknown HPI HPI COPD: Details: 59-year-old lady former 30 pack years smoker, quit 2010, followed for moderate to severe asthma and environmental allergies. Her asthma symptoms has been well controlled on Advair, Combivent, albuterol MDI. Her environmental allergies are usually well controlled on Singulair, however she has been having some seasonal exacerbation with worsening allergic rhinitis. [facility] Medical History History of COVID-19 Pulmonary nodule Elevated cholesterol HTN (hypertension) Diabetes Asthma-COPD overlap syndrome Aortic atherosclerosis Chest pain Surgical History History of colonoscopy Family History Mother HTN (hypertension) H/O heart artery stent Father No problems noted. Social History Alcohol intake: current Alcohol intake frequency: holidays/special occasions only Patient Tobacco Use Status: Former Tobacco user Tobacco use type: Cigarette Years Smoked: 28 +/- Current occupational status: employed Current occupation: [employer] Female Reproductive History Menstrual Age of Menarche: 13 Review of Systems Const Denies daytime sleepiness, Denies excessive sweating, Denies fatigue, Denies fever(s), Denies lethargy, Denies malaise, Denies night sweats, Denies snoring and Denies weight loss Eyes Denies blurry vision and Denies itchy eyes ENT Denies nasal congestion, Denies post nasal drip, Denies sinus pain, Denies sinus pressure and Denies other ( Thrush) Card Denies chest pain, Denies pedal edema, Denies dyspnea, Denies orthopnea and Denies paroxysmal nocturnal dyspnea Resp Denies cough, Denies hemoptysis, Denies excessive phlegm production, Denies dyspnea, Denies snoring and Denies wheezing GI Denies abdominal pain and Denies heartburn Musc Denies myalgias, Denies arthralgias and Denies joint swelling Skin/Breast Denies rash Neuro Denies memory loss and Denies seizure-like activity Psych Denies abnormal sleep pattern, Denies anxiety and Denies memory loss Endo Denies excessive sweating, Denies fatigue and Denies heat intolerance Dario/Lymph Denies easy bruising Aller/Immun Denies itchy eyes, Denies seasonal rhinorrhea and Denies wheezing Physical Exam Vital Signs: Last Vital Signs Pulse 86 02/12/25 10:12 BP 122/67 02/12/25 10:12 Pulse Ox 96 02/12/25 10:12 Oxygen Delivery Method Room Air 02/12/25 10:12 BMI result Body Mass Index 38.2 Const General: no acute distress and alert Nutritional Appearance: obese Orientation/consciousness: Other orientation findings ( oriented) HEENT Head: Yes atraumatic Eyes General: appearance normal, both eyes and all related structures Sclerae: sclerae normal EOM: EOMs intact bilaterally Neck Neck: Yes supple Lymphatic: no lymphadenopathy noted Resp Effort & Inspection: normal respiratory effort and no use of accessory muscles Auscultation: clear to auscultation bilaterally Cardio Rate: regular rate Rhythm: regular rhythm Heart sounds: no gallops, no murmurs and no rubs Skin General skin exam: other ( warm) Extrem General: No clubbing, No cyanosis and No edema Assessment & Plan Assessment & Plan (1) Asthma-COPD overlap syndrome: Code(s): J44.9 - Chronic obstructive pulmonary disease, unspecified Category: Medical Plan: Well controlled on current regimen of Advair, Combivent, and albuterol MDI. Continue current regimen. (2) Environmental allergies: Code(s): Z91.09 - Other allergy status, other than to drugs and biological substances Category: Medical Plan: Baseline controlled on Singulair, but now with worsening allergic rhinitis, will add nasal ipratropium. Coding Level of Care Code Est Pt Level 4 (73828) Diagnoses Asthma-COPD overlap syndrome J44.9 Environmental allergies Z91.09
--- OUTSIDE RECORDS SUMMARY | 2025-02-12 11:35 | XMS_ITS | Encounter Summary ---
Author Organization [employer] Address [address] [facility] 7t [place] [address] Care Team Providers Care Machine Overhauler Name Role Phone Josr Veliz MD Primary Care Provider [phone] Encounter Details Date Type Department Care Team ([facility] st Contact Info) Description 01/08/2025 Orders Only [facility] CHC MED & PEDS [address] [place], [place] [phone] Josr Veliz MD [address] [place] [address] Urinary frequency (Primary Dx); UTI symptoms Social History Tobacco Use Types Packs/Day Years Used Date Smoking Tobacco: Former Cigarettes 0.3 28 Passive Smoke Exposure: Never Smokeless Tobacco: Never Alcohol Use Standard Drinks/Week Comments Defer 0 (1 standard drink = 0.6 oz pur e alcohol) Depression Answer Date Recorded Patient Health Questionnaire-9 Score 8 08/09/2024 Patient Health Questionnaire-9 Score 8 08/09/2024 Last PHQ-9: Questionnaire Data Not on file 0 08/09/2024 Housing Stability Answer Date Recorded What is your housing situation today? I have bj li 07/31/[address] you li ve. Do you have problems with any of the following? None of the above 07/31/2024 Food Insecurity Answer Date Recorded Within the past 12 months, y ou worried that your food would run out before you got money to buy more: Never True 07/31/2024 Within the past 12 months,th e food you bought just didn't last and you didn't have enough money to get more: Never True Transportation Answer Date Recorded In the past 12 months, has l ack of transportation kept you from medical appts, meetings, work or from getting things needed for daily living? No 07/31/2024 Utilities Answer Date Recorded In the past 12 months, has t he electric, gas, oil or water company threatened to shut off services in your home? No 07/31/2024 Depression Answer Date Recorded Patient Health Questionnaire-2 Score 2 08/09/2024 Internet Access Answer Date Recorded Internet Access Q1 Yes 07/31/2024 Internet Access Q2 Not on file 07/31/2024 Comments Unknown Sex and Gender Information Value Date Recorded Sex Assigned at Female 02/15/2022 10:21 AM EDT Legal Sex Female 10:21 AM EDT Gender Identity Female 02/15/2022 10:21 AM EDT Sexual Orientation Straight 02/15/2022 10 :21 AM EDT documented as of this encounter Plan of Treatment Upcoming Encounters Date Type Department Care Team ([facility] st Contact Info) Description 02/18/2025 4:00 PM EST Office Visit [facility] MED & PEDS [address] [place] [address] Josr Veliz MD [address] [place] [address] documented as of this encounter Visit Diagnoses Diagnosis Urinary frequency- Primary UTI symptoms documented in this encounter Additional Health Concerns Assessment Noted Time PHQ-9 Depression Total Score: 8 08/10/19 25 10:05 AM EDT documented as of this encounter Care Teams Machine Overhauler Relationship Specialty Start Date End Date Josr Veliz MD [address] [place] [address] PCP - General Internal Medicine 04/18/18 documented as of this encounter
--- OUTSIDE RECORDS SUMMARY | 2025-02-12 11:35 | XMS_ITS | Encounter Summary ---
Author Organization [employer] Address [address] [facility] 7t [place] [address] Care Team Providers Care Tankage Grinder Name Role Phone Josr Veliz MD Primary Care Provider [phone] Encounter Details Date Type Department Care Team ([facility] st Contact Info) Description 06/30/2023 Orders Only [facility] CHC MED & PEDS [address] [place], [place] [phone] Josr Veliz MD [address] [place] [address] Social History Tobacco Use Types Packs/Day Years Used Date Smoking Tobacco: Former Cigarettes 0.3 28 Passive Smoke Exposure: Never Smokeless Tobacco: Never Alcohol Use Standard Drinks/Week Comments Defer 0 (1 standard drink = 0.6 oz pur e alcohol) Housing Stability Answer Date Recorded What is your housing situation today? I have bjangella li 06/07/[address] you li ve. Do you have problems with any of the following? None of the above 06/07/2023 Food Insecurity Answer Date Recorded Within the past 12 months, y ou worried that your food would run out before you got money to buy more: Never True 06/07/2023 Within the past 12 months,th e food you bought just didn't last and you didn't have enough money to get more: Never True Transportation Answer Date Recorded In the past 12 months, has l ack of transportation kept you from medical appts, meetings, work or from getting things needed for daily living? No 06/07/2023 Utilities Answer Date Recorded In the past 12 months, has t he [facility], [employer], oil or water company threatened to shut off services in your home? No 06/07/2023 Comments Unknown Sex and Gender Information Value Date Recorded Sex Assigned at Female 02/15/2022 10:21 AM EDT Legal Sex Female 10:21 AM EDT Gender Identity Female 02/15/2022 10:21 AM EDT Sexual Orientation Straight 02/15/2022 10 :21 AM EDT documented as of this encounter Plan of Treatment Upcoming Encounters Date Type Department Care Team (Late st Contact Info) Description 02/18/2025 4:00 PM EST Office Visit [facility] MED & PEDS [address] [place] [address] Josr Veliz MD [address] [place] [address] documented as of this encounter Visit Diagnoses Not on filedocumented in this encounter Care Teams Tankage Grinder Relationship Specialty Start Date End Date Jsor Veliz MD [address] [place] [address] PCP - General Internal Medicine 04/18/18 documented as of this encounter
--- OUTSIDE RECORDS SUMMARY | 2025-02-12 11:35 | XMS_ITS | Encounter Summary ---
Author Organization [employer] Address [address] [facility] 7 [place] [address] Care Team Providers Care Cigar Packing Examiner Name Role Phone Josr Veliz MD Primary Care Provider [phone] Reason for Visit * Reason Comments Med Refill Encounter Details Date Type Department [facility] Description 05/12/[address] [facility] CHC MED & PEDS [address] [place], [place] [phone] Josr Veliz MD [address] [place] [address] Essential hypertension Social History Tobacco Use Types Packs/Day Years [...] Description 02/18/2025 4:00 PM EST Office Visit [facility] MED & PEDS [address] [place] [address] Josr Veliz MD [address] [place] [address] documented as of this encounter Visit Diagnoses Diagnosis Essential hypertension Unspecified essential hypertension documented in this encounter Care Teams Cigar Packing Examiner Relationship Specialty Start Date End Date Josr Velzi MD [address] [place] [address] PCP - General Internal Medicine 04/18/18 documented as of this encounter
--- OUTSIDE RECORDS SUMMARY | 2025-02-12 11:35 | XMS_ITS | Encounter Summary ---
Author Organization [employer] Address [address] [place] [id number] Care Team Providers Care Drafter Electrical Name Role Phone Josr Veliz MD Primary Care Provider [phone] Reason for Visit * Reason Onset Date Comments Referral 02/04/2023 Encounter Details Date Type Department Care Team ([facility] Contact Info) Description 02/04/2023 Telephone [facility] CHC MED & PEDS [address] [place], [place] [phone] Josr Veliz MD [address] [place] [address] Referral Social History Tobacco Use Types Packs/Day Years Used Date Smoking Tobacco: Former Cigarettes 0.3 28 Passive Smoke Exposure: Never Smokeless Tobacco: Never Alcohol Use Standard Drinks/Week Comments Defer 0 (1 standard drink = 0.6 oz pur e alcohol) Comments Unknown Sex and Gender Information Value Date Recorded Sex Assigned at Female 02/15/2022 10:21 AM EDT Legal Sex Female 10:21 AM EDT Gender Identity Female 02/15/2022 10:21 AM EDT Sexual Orientation Straight 02/15/2022 10 :21 AM EDT documented as of this encounter Miscellaneous Notes * Telephone Encounter - Yamilka Silva - 02/04/2023 3:18 PM EDT Tc from pt requesting a referral Location: [address] [place] [address] Date: n/a Time: n/a Specialty: [facility] documented in this encounter Plan of Treatment Upcoming Encounters Date Type Department Care Team (Late st Contact Info) Description 02/18/2025 4:00 PM EST Office Visit [facility] MED & PEDS [address] [place] [address] Josr Veliz MD [address] [place] [address] documented as of this encounter Visit Diagnoses Not on filedocumented in this encounter Care Teams Drafter Electrical Relationship Specialty Start Date End Date Josr Veliz MD [address] [place] [address] PCP - General Internal Medicine 04/18/18 documented as of this encounter
--- OUTSIDE RECORDS SUMMARY | 2025-02-12 11:35 | XMS_ITS | Encounter Summary ---
Author Organization [employer] Address [address] [place] [address] 7 [place] [address] Care Team Providers Care Digital Press Operator Name Role Phone Josr Veliz MD Primary Care Provider [phone] Encounter Details Date Type Department Care Team (Late Contact Info) Description 10/13/2022 Abstract [facility] MED & PEDS [address] [place] [address] Josr Veliz MD [address] [place] [address] Social History Tobacco Use Types Packs/Day Years [...] Orientation Straight 02/15/2022 10 :21 AM EDT COVID-19 Exposure Response Date Recorded In the last 10 days, have yo u been in contact with someone who was confirmed or suspected to have Coronavirus/COVID-19? No / Unsure 09/24/2022 10:28 AM EDT documented as of this encounter Plan of Treatment Upcoming Encounters Date Type Department Care Team ([facility] Contact Info) Description 02/18/2025 4:00 PM EST Office Visit [facility] MED & PEDS [address] [place] [address] Josr Veliz MD [address] [place] [address] documented as of this encounter Procedures Procedure Name Priority Date/Time Associated Diagnosis Comments MAMMOGRAPHY Routine 08/13/2022 1:31 PM EDT documented in this encounter Results * Mammography (08/13/2022 1:31 PM EDT) Mammogram Bi-rads 2 Anatomical Region Laterality Modality Other Narrative 08/13/2022 1:31 PM EDT Recommended routine annual mammography us Historical Provider HEALTH MAINTENANCE Final Result documented in this encounter Visit Diagnoses Not on filedocumented in this encounter Care Teams Digital Press Operator Relationship Specialty Start Date End Date Josr Veliz MD [address] [place] [address] PCP - General Internal Medicine 04/18/18 documented as of this encounter
--- OUTSIDE RECORDS SUMMARY | 2025-02-12 11:35 | XMS_ITS | Encounter Summary ---
Author Organization [employer] Address [address] [facility] 7t [place] [address] Care Team Providers Care Sheet Manager Name Role Phone Josr Veliz MD Primary Care Provider [phone] Encounter Details Date Type Department Care Team (Late st Contact Info) Description 04/24/2024 Orders Only [facility] [address] [place] [address] ProviderYvette MD Social History Tobacco Use Types Packs/Day Years Used Date Smoking Tobacco: Former Cigarettes 0.3 28 Passive Smoke Exposure: Never Smokeless Tobacco: Never Alcohol Use Standard Drinks/Week Comments Defer 0 (1 standard drink = 0.6 oz pur e alcohol) Housing Stability Answer Date Recorded What is your housing situation today? I have bj li 06/07/[address] you [...] PM EST Office Visit [facility] MED & PEDS [address] [place] [address] Josr Veliz MD [address] [place] [address] documented as of this encounter Procedures Procedure Name Priority Date/Time Associated Diagnosis Comments DIABETES EYE EXAM Routine 07/01/2023 9:22 AM EDT documented in this encounter Results * Diabetes Eye Exam (07/01/2023 9:22 AM EDT) Historical Provider HEALTH MAINTENANCE Final Result documented in this encounter Visit Diagnoses Not on filedocumented in this encounter Care Teams Sheet Manager Relationship Specialty Start Date End Date Josr Veliz MD [address] [place] [address] PCP - General Internal Medicine 04/18/18 documented as of this encounter
--- OUTSIDE RECORDS SUMMARY | 2025-02-12 11:35 | XMS_ITS | Clinical Summary ---
Author Organization [facility] Address [address] [place] [address] Care Team Providers Care Clinical Informatics Specialist Name Role Phone No, Referring Primary Care Provider Unavailabl e Allergies No known active allergies Medications No known medications Social History Tobacco Use Types Packs/Day Years Used Date Smoking Tobacco: Never Assessed Comments Unknown Sex and Gender Information Value Date Recorded Sex Assigned at Not on file Legal Sex Female 4:53 PM EDT Gender Identity Not on file Sexual Orientation Not on file Last Filed Vital Signs Vital Sign Reading Time Taken Comments Blood Pressure 121/77 07/23/2024 5:20 PM EDT Pulse 73 07/23/2024 5:20 PM EDT Temperature 36.9 C (98.5 F) 07/23/2024 5:20 PM EDT Respiratory Rate 18 07/23/2024 5:20 PM EDT Oxygen Saturation 94% 07/23/2024 5:20 PM EDT Inhaled Oxygen Concentration - - Weight 114 kg (251 lb 6.4 oz) 07/23/2024 5:20 PM EDT Height - - Body Mass Index - - Plan of Treatment Health Maintenance Due Date Last Done Comments Basic Metabolic Panel 1966 Cervical Cancer Screening 1966 Cologuard 1966 Colon Cancer Screening 1966 Colonoscopy 1966 FOBT / Fit Test 1966 HPV and Pap Smear 1966 Hepatitis C Screening 1966 Pap Smear 1966 Sigmoidoscopy 1966 Ophthalmology Exam 1976 Urine Microalbumin 1976 Pneumococcal Vaccine: 50+ Ye ars (1 of 2 - PCV) 1985 Alcohol/Substance Use Screening 04/18/2024 Depression Screening and Follow-Up 04/18/2024 Social Drivers of Health Kiki ual Screening 04/18/2024 Mammogram 08/13/2024 08/13/2022 Hemoglobin A1C 08/30/2024 03/02/2024 COVID-19 Vaccine (2 - 2024-2 6 season) 2024 07/02/2020 Influenza Vaccine (#1) 2024 03/12/2013 DTaP,Tdap,and Td Vaccines (7 - Td or Tdap) 12/13/2032 12/13/2022, 03/12/2013, 12/26/1980, Additional history exists RSV Vaccine (60+ years old a nd patients) (1 - 1-dose 75+ series) 2041 Hepatitis B Vaccines Completed 07/06/1996, 02/06/1996, 01/02/1996 Zoster Vaccines Completed 10/06/2020, 08/01/2020 HIV Screening Completed 03/31/2024, 03/31/2024 Insurance [facility] Care Teams Clinical Informatics Specialist Relationship Specialty Start Date End Date No, Referring PCP - General 07/23/24
--- OUTSIDE RECORDS SUMMARY | 2025-02-12 11:35 | XMS_ITS | Encounter Summary ---
Author Organization [employer] Address [address] [facility] 7t [place] [address] Care Team Providers Care Remote Sensing Specialist Name Role Phone Josr Veliz MD Primary Care Provider [phone] Encounter Details Date Type Department Care Team ([facility] st Contact Info) Description 03/08/2024 Orders Only [facility] CHC MED & PEDS [address] [place], [place] [phone] Josr Veliz MD [address] [place] [address] Hypokalemia (Primary Dx) Social History Tobacco Use Types Packs/Day Years [...] Description 02/18/2025 4:00 PM EST Office Visit [facility] CHC MED & PEDS [address] [place], [place] [phone] Josr Veliz MD [address] [place], [place] [phone] documented as of this encounter Procedures Procedure Name Priority Date/Time Associated Diagnosis Comments POTASSIUM Routine 03/23/2024 3:30 PM EST Hypokalemia documented in this encounter Results * (ABNORMAL) Potassium (03/23/2024 3:30 PM EST) Potassium 2.8(LL) 3.3 - 5.1 mmol/L [facility] Comment:Critical value for t est(s): POTS Results called to and readback by: DR. AYOUB [facility] calling[facility] Date: 03/23/24Time: 1838 Blood Venous blood specimen / Unknown 03/23/2024 3:30 PM EST 03/23/2024 5:39 PM EST us Josr Veliz MD LAB BLOOD ORDERABLES Final Result [facility] [address] [place], [place] [phone] documented in this encounter Visit Diagnoses Diagnosis Hypokalemia- Primary Hypopotassemia documented in this encounter Care Teams Remote Sensing Specialist Relationship Specialty Start Date End Date Josr Veliz MD [address] [place], [place] [phone] PCP - General Internal Medicine 04/18/18 documented as of this encounter
--- OUTSIDE RECORDS SUMMARY | 2025-02-12 11:35 | XMS_ITS | Encounter Summary ---
Author Organization [employer] Address [address] [place] [address] Care Team Providers Care Or Rn Name Role Phone Josr Veliz MD Primary Care Provider [phone] Encounter Details Date Type Department Care Team (Late st Contact Info) Description 01/10/2025 Results Follow-Up [facility] [address] [place] [address] Ethel San, JOSH [address] [place] [address] POCT Urinalysis, Culture, Urine, Routine Social History Tobacco Use Types Packs/Day Years [...] encounter Miscellaneous Notes * Telephone Encounter - Ethel San RN - 01/10/2025 9:35 AM EDT TC placed to pt to discuss the message below pt states that she is voiding very frequently so not surprised by test results. Dont see that medication was sent to pharmacy will send PCP message ----- Message from Josr Veliz MD sent at 01/08/2025 11:04 PM EDT ----- Please call. The urine culture is compatible with a urinary tract infection due to E. coli. Ciprofloxacin sent to patient's pharmacy. The medication might need to be changed after we receive the sensitivity. Please advise Mrs. Brittanie Pinon to keep herself well-hydrated ----- Message ----- From: Marilee Mccullough [place] Sent: 01/07/2025 3:16 PM EDT To: Josr Veliz MD documented in this encounter Plan of Treatment Upcoming Encounters Date Type Department Care Team ([facility] st Contact Info) Description 02/18/2025 4:00 PM EST Office Visit [facility] MED & PEDS [address] [facility] [place] [address] Josr Veliz MD [address] [place] [address] documented as of this encounter Visit Diagnoses Not on filedocumented in this encounter Additional Health Concerns Assessment Noted Time PHQ-9 Depression Total Score: 8 08/10/19 25 10:05 AM EDT documented as of this encounter Care Teams Or Rn Relationship Specialty Start Date End Date Josr Veliz MD [address] [place] [address] PCP - General Internal Medicine 04/18/18 documented as of this encounter
--- OUTSIDE RECORDS SUMMARY | 2025-02-12 11:35 | XMS_ITS | Encounter Summary ---
Author Organization [employer] Address [address] [place] [address] [place] [address] Care Team Providers Care Veterinary Laboratory Diagnostician Name Role Phone Josr Veliz MD Primary Care Provider [phone] Reason for Visit * Reason Onset Date Comments Nurse Triage 02/03/2023 Encounter Details Date Type Department Care Team ([facility] st Contact Info) Description 02/03/2023 Telephone [facility] CHC MED & PEDS [address] [place] [address] Josr Veliz MD [address] [place] [address] Nurse Triage Social History Tobacco Use Types Packs/Day Years [...] encounter Miscellaneous Notes * Telephone Encounter - Ania Patel - 02/03/2023 1:42 PM EDT Symptom: Foot or Ankle Swelling Outcome: Schedule a same-day appointment or talk to a nurse or provider today Reason: Caller denied all higher acuity questions The caller accepted this outcome documented in this encounter Plan of Treatment Upcoming Encounters Date Type Department Care Team (Late st Contact Info) Description 02/18/2025 4:00 PM EST Office Visit [facility] CHC MED & PEDS [address] [place] [address] Josr Veliz MD [address] [place] [address] documented as of this encounter Visit Diagnoses Not on filedocumented in this encounter Care Teams Veterinary Laboratory Diagnostician Relationship Specialty Start Date End Date Josr Veliz MD [address] [place] [address] PCP - General Internal Medicine 04/18/18 documented as of this encounter
--- OUTSIDE RECORDS SUMMARY | 2025-02-12 11:35 | XMS_ITS | Encounter Summary ---
Author Organization [employer] [facility] Address [address] [place] [address] Care Team Providers Care Documentation Writer Name Role Phone Josr Veliz MD Primary Care Provider [phone]- [phone] Encounter Details Date Type Department Care Team (Latest Contact Info) Description 08/25/2020 Abstract [facility] CONVERSIONS Dental, Provider, DDS Social History Tobacco Use Types Packs/Day Years [...] Description 02/18/2025 4:00 PM EST Office Visit [facility] MED & PEDS [address] [place] [address] Josr Veliz MD [address] [place] [address] documented as of this encounter Visit Diagnoses Not on filedocumented in this encounter Care Teams Documentation Writer Relationship Specialty Start Date End Date Josr Veliz MD [address] [place] [address] PCP - General Internal Medicine 04/18/18 documented as of this encounter
--- OUTSIDE RECORDS SUMMARY | 2025-02-12 11:35 | XMS_ITS | Encounter Summary ---
Author Organization [employer] Address [address] [facility] 7 [place] [address] Care Team Providers Care Fancy Wire Drawer Name Role Phone Josr Veliz MD Primary Care Provider [phone] Reason for Visit * Reason Comments Med Refill Encounter Details Date Type Department Care Team ([facility] st Contact Info) Description 08/03/2024 Refill [facility] MEDICINE [address] [place] [address] Josr Veliz MD [address] [place] [address] Social History Tobacco Use Types Packs/Day Years [...] t he electric, gas, oil or water [employer] threatened to shut off services in your home? No 07/31/2024 Internet Access Answer Date Recorded Internet Access [...] Description 02/18/2025 4:00 PM EST Office Visit [facility] CHC MED & PEDS [address] [place] [address] Josr Veliz MD [address] [place] [address] documented as of this encounter Visit Diagnoses Not on filedocumented in this encounter Care Teams Fancy Wire Drawer Relationship Specialty Start Date End Date Josr Veliz MD [address] [place] [address] PCP - General Internal Medicine 04/18/18 documented as of this encounter
--- OUTSIDE RECORDS SUMMARY | 2025-02-12 11:35 | XMS_ITS | Encounter Summary ---
Author Organization [employer] [facility] Address [address] [place] [address] Care Team Providers Care Shot Bagger Name Role Phone Josr Veliz MD Primary Care Provider [phone]- [phone] Reason for Visit * Reason Comments Med Refill Encounter Details Date Type Department Care Team ([facility] Contact Info) Description 04/21/2022 Refill [facility] MED & PEDS [address] [place] [address] Josr Veliz MD [address] [place] [address] Hypercholesterolemia (Primary Dx) Social History Tobacco Use Types [...] Upcoming Encounters Date Type Department Care Team ([facility] Contact Info) Description 02/18/2025 4:00 PM EST Office Visit [facility] CHC MED & PEDS [address] [place] [address] Josr Veliz MD [address] [place] [address] documented as of this encounter Visit Diagnoses Diagnosis Hypercholesterolemia- Primary Pure hypercholesterolemia documented in this encounter Care Teams Shot Bagger Relationship Specialty Start Date End Date Josr Veliz MD [address] [place] [address] PCP - General Internal Medicine 04/18/18 documented as of this encounter
--- OUTSIDE RECORDS SUMMARY | 2025-02-12 11:35 | XMS_ITS | Encounter Summary ---
Author Organization [employer] Address [address] [place] [address] Care Team Providers Care Certified Prosthetist Vice President Name Role Phone Josr Veliz MD Primary Care Provider [phone] Reason for Referral * Consultation (Routine) - Closed Specialty Diagnoses / Procedures Referred By Contgustabo t Referred To Contact Physical Therapy Diagnoses Left hip pain Right hip pain Josr Veliz MD [address] [place] [address] Phone: tel: fax: [facility] Physical [facility] [address] [place] [address] Phone: tel: fax: Referral ID Status Reason Start Date Expiration Date V isits Requested Visits Authorized [id number] Closed Specialty Services Required 09/24/2024 09/24/2025 20 20 Encounter Details Date Type Department Care Team ([facility] st Contact Info) Description 09/21/2024 Orders Only [facility] CHC MED & PEDS [address] [place] [address] Josr Veliz MD [address] [place], [place] [phone] Left hip pain (Primary Dx); Right hip pain Social History Tobacco Use Types Packs/Day Years [...] Upcoming Encounters Date Type Department Care Team ([facility] st Contact Info) Description 02/18/2025 4:00 PM EST Office Visit [facility] CHC MED & PEDS [address] [place] [address] Josr Veliz MD [address] [place] [address] Scheduled Referrals Name Type Priority Associated Diagnoses Orde r Schedule Referral to Physical Therapy Outpatient Referral Routine Left hip pain Right hip pain Expected: 09/21/2024 (Approximate), Expires: 09/21/2025 documented as of this encounter Visit Diagnoses Diagnosis Left hip pain- Primary Pain in joint, pelvic region and thigh Right hip pain Pain in joint, pelvic region and thigh documented in this encounter Additional Health Concerns Assessment Noted Time PHQ-9 Depression Total Score: 8 08/10/19 25 10:05 AM EDT documented as of this encounter Care Teams Certified Prosthetist Vice President Relationship Specialty Start Date End Date Josr Veliz MD [address] [place] [address] PCP - General Internal Medicine 04/18/18 documented as of this encounter
--- OUTSIDE RECORDS SUMMARY | 2025-02-12 11:35 | XMS_ITS | Encounter Summary ---
Author Organization [employer] Address [address] [facility] 7 [place] [address] Care Team Providers Care Supervisor Food Checkers And Cashiers Name Role Phone Josr Veliz MD Primary Care Provider [phone] Reason for Visit * Reason Onset Date Comments Medication Question 03/30/2024 Encounter Details Date Type Department Care Team ([facility] st Contact Info) Description 03/30/2024 Telephone [facility] MEDICINE [address] [place] [address] Josr Veliz MD [address] [place] [address] Medication Question Social History Tobacco Use Types Packs/Day Years [...] encounter Miscellaneous Notes * Telephone Encounter - Tash Ledesma RN - 03/30/2024 11:30 AM EST Pt had BMP ordered by Dr Presley which includes Potassium. * Telephone Encounter - Venu Leung - 03/30/2024 10:07 AM EST Tc from pt stating they she is going to get her Blood drawn today and she was wondering if it was possible to get a Potasium supplement before Having it drawn due to her bruising Easily. Contact pt at [phone] documented in this encounter Plan of Treatment Upcoming Encounters Date Type Department Care Team (Late st Contact Info) Description 02/18/2025 4:00 PM EST Office Visit [facility] MED & PEDS [address] [place] [address] Josr Veliz MD [address] [place] [address] documented as of this encounter Visit Diagnoses Not on filedocumented in this encounter Care Teams Supervisor Food Checkers And Cashiers Relationship Specialty Start Date End Date Josr Veliz MD [address] [place] [address] PCP - General Internal Medicine 04/18/18 documented as of this encounter
--- OUTSIDE RECORDS SUMMARY | 2025-02-12 11:35 | XMS_ITS | Encounter Summary ---
Author Organization [employer] Address [address] [facility] [address] [place] [address] Care Team Providers Care Farm Butcher Name Role Phone Josr Veliz MD Primary Care Provider [phone] Encounter Details Date Type Department Care Team (Latest Contact Info) Description 02/11/2025 Travel Social History Tobacco Use Types Packs/Day Years [...] housing situation today? I have bjangella li 07/31/[address] you [...] 4:00 PM EST Office Visit [facility] CHC MED & PEDS [address] [place] [address] Josr Veliz MD [address] [place] [address] documented as of this encounter Visit Diagnoses Not on filedocumented in this encounter Additional Health Concerns Assessment Noted Time PHQ-9 Depression Total Score: 8 08/10/19 25 10:05 AM EDT documented as of this encounter Care Teams Farm Butcher Relationship Specialty Start Date End Date Josr Veliz MD [address] [place] [address] PCP - General Internal Medicine 04/18/18 documented as of this encounter
--- OUTSIDE RECORDS SUMMARY | 2025-02-12 11:35 | XMS_ITS | Encounter Summary ---
Author Organization [employer] [facility] Address [address] [place] [address] Care Team Providers Care Rail Maintenance Worker Name Role Phone Josr Veliz MD Primary Care Provider +1- [phone] Encounter Details Date Type Department Care Team (Latest Contact Info) Description 01/26/2022 Abstract [facility] CONVERSIONS Dental, Provider, DDS Social History Tobacco [...] 4:00 PM EST Office Visit [facility] MED & PEDS [address] [place] [address] Josr Veliz MD [address] [place] [address] documented as of this encounter Visit Diagnoses Not on filedocumented in this encounter Care Teams Rail Maintenance Worker Relationship Specialty Start Date End Date Josr Veliz MD [address] [place] [address] PCP - General Internal Medicine 04/18/18 documented as of this encounter
--- OUTSIDE RECORDS SUMMARY | 2025-02-12 11:35 | XMS_ITS | Encounter Summary ---
Author Organization [employer] Address [address] [facility] [address] [place] [address] Care Team Providers Care Mold Mechanic Name Role Phone Josr Veliz MD Primary Care Provider [phone] Encounter Details Date Type Department Care Team (Late st Contact Info) Description 04/01/2024 Orders Only [facility] [address] [place] [phone] Olvin Presley MD [address] [place] [phone] Social History Tobacco Use Types Packs/Day Years [...] 4:00 PM EST Office Visit [facility] MED & PEDS [address] [place] [address] Josr Veliz MD [address] [place] [address] documented as of this encounter Visit Diagnoses Not on filedocumented in this encounter Care Teams Mold Mechanic Relationship Specialty Start Date End Date Josr Veliz MD [address] [place] [address] PCP - General Internal Medicine 04/18/18 documented as of this encounter
--- OUTSIDE RECORDS SUMMARY | 2025-02-12 11:35 | XMS_ITS | Clinical Summary ---
Author Organization [employer] Address [address] [facility] [address] [place] [address] Care Team Providers Care Silk Winding Machine Operator Name Role Phone Josr Veliz MD Primary Care Provider [phone] Allergies Active Allergy Reactions Criticality Noted Date Comments Amoxicillin 02/09/2012 Azithromycin 02/09/2012 Latex Itching 12/11/2012 Lidocaine 05/24/2016 Nickel 05/24/2016 Medications Advair HFA 115-21 MCG/ACT inhaler INHALE TWO PUFFS BY MOUTH TWICE DAILY RINSE MOUTH AFTER USE 022 Active Linzess 145 MCG capsule Take 145 mcg by mouth in the morning. 022 Active Dextromethorphan -guaiFENesin (Mucinex DM Maximum Strength) 60-1200 MG tablet sustained-releas e 12 hour TAKE ONE TABLET EVERY TWELVE HOURS NEEDED FOR COUGH 022 Active montelukast (Singulair) 10 MG tablet Take 10 mg by mouth in the morning. 023 Active polyethylene glycol, PEG, 3350 (Miralax) 17 g packet MIX 1 PACKET IN 8 OUNCES OF WATER, JUICE,SODA, COFFEE, OR TEA DAILY NEEDED FOR CONSTIPATION 022 Active triamcinolone (Nasacort Allergy 24HR) 55 MCG/ACT nasal inhaler 2 sprays in each nostril every day 019 Active diphenhydrAMINE (Benadryl Allergy) 25 MG tabletIndication s:Acute viral syndrome Take 1 tablet (25 mg) by mouth every 12 (twelve) hours. 60 tablet 1 023 Active omeprazole OTC (PriLOSEC OTC) 20 MG EC tabletIndication s:Heartburn Take 1 tablet (20 mg) by mouth before breakfast. Do not crush, chew, or split. 30 tablet 2 023 Active ibuprofen 400 MG tablet Take 1 tablet (400 mg) by mouth every 6 (six) hours if needed for moderate pain or fever for up to 30 doses. 30 tablet 023 Active Blood Glucose Monitoring Suppl (FreeStyle Lite) w/Device kit Inject 1 Units under the skin 3 times daily AND 1 Units 3 times daily. USE TO TEST BLOOD SUGAR THREE TIMES A DAY. 1 kit 023 Active FREESTYLE LITE test strip TEST BLOOD SUGAR THREE TIMES DAILY 100 each 11 Active TRUEplus Lancets 33G misc TEST BLOOD SUGAR THREE TIMES DAILY 100 each Active Econazole Nitrate powderIndication s:Rash 1 Application if needed in the morning and at bedtime (moisture). 1 g 2 Active hydrocortisone 1 % ointmentIndicati ons:Rash Apply topically 2 times daily. 28 g Active venlafaxine XR (Effexor XR) 37.5 MG 24 hr capsuleIndicatio ns:Memory problem,Menopaus al hot flushes Take 1 capsule (37.5 mg) by mouth Once per day. Do not crush or chew. 30 capsule 11 024 2024 Active potassium chloride CR (K-Tab) 20 MEQ ER tabletIndication s:Hypokalemia Take 1 tablet (20 mEq) by mouth 2 times daily. Do not crush, chew, or split. 28 tablet 024 2024 Active potassium chloride (Klor-Con) 20 MEQ packetIndication s:Hypokalemia Take 20 mEq by mouth 2 times daily. 10 packet 024 2024 Active olopatadine (Patanol) 0.1 % ophthalmic solution Administer 1 drop into both eyes 2 times daily. 5 mL 024 2024 Active fluticasone (Flonase Allergy Relief) 50 MCG/ACT nasal spray Administer 1 spray into each nostril Once per day. Shake gently. Before first use, prime pump. After use, clean tip and replace cap. 16 g 12 024 2024 Active glucose blood (FREESTYLE LITE) test stripIndications :Type 2 diabetes mellitus without complications ([facility]) TEST BLOOD SUGAR THREE TIMES DAILY 100 strip 11 Active TRUEplus Lancets 33G miscIndications: Type 2 diabetes mellitus without complications ([facility]) TEST BLOOD SUGAR THREE TIMES DAILY 100 each Active glipiZIDE (Glucotrol) 5 MG tablet TAKE ONE TABLET BY MOUTH TWICE DAILY BEFORE BREAKFAST AND SUPPER 180 tablet 1 Active atorvastatin (Lipitor) 80 MG tabletIndication s:Hypercholester olemia TAKE ONE TABLET EVERY DAY 90 tablet 1 Active meloxicam (Mobic) 7.5 MG tablet TAKE 1 TABLET BY MOUTH EVERY DAY 30 tablet 5 Active atenolol (Tenormin) 25 MG tablet TAKE ONE TABLET BY MOUTH EVERY DAY 90 tablet 3 Active Dulaglutide (Trulicity) 3 MG/0.5ML solution auto-injectorInd ications:Type 2 diabetes mellitus without complication, without long-term current use of insulin ([facility]),Class 3 severe obesity due to excess calories with serious comorbidity and body mass index (BMI) of 40.0 to 44.9 in adult ([facility]) Inject 3 mg under the skin 1 (one) time per week. 2 mL 1 Active famotidine (Pepcid) 20 MG tabletIndication s:Heartburn Take 1 tablet (20 mg) by mouth 2 times daily. 60 tablet 025 2025 Active spironolactone (Aldactone) 100 MG tabletIndication s:Essential hypertension,Swe lling of both ankles,Essential hypertension Take 1 tablet (100 mg) by mouth Once per day. 30 tablet 025 2025 Active amLODIPine (Norvasc) 2.5 MG tablet TAKE ONE TABLET EVERY DAY 90 tablet 1 Active tolterodine LA (Detrol LA) 4 MG 24 hr capsule Take 1 capsule (4 mg) by mouth Once per day. Do not crush, chew, or split.TAKE ONE CAPSULE EVERY MORNING. DO NOT BREAK, CRUSH, DISSOLVE OR CHEW 90 capsule 3 Active amLODIPine (Norvasc) 2.5 MG tablet TAKE ONE TABLET EVERY DAY 90 tablet 1 025 2024 Discontinued tolterodine LA (Detrol LA) 4 MG 24 hr capsule TAKE ONE CAPSULE EVERY MORNING. DO NOT BREAK, CRUSH, DISSOLVE OR CHEW 90 capsule 025 2024 Discontinued(R eorder (will not trigger notification to Pharmacy)) ciprofloxacin (Cipro) 500 MG tabletIndication s:Urinary frequency,UTI symptoms Take 1 tablet (500 mg) by mouth 2 times daily for 7 days. 14 tablet 025 2024 Active Problems Problem Noted Date Diagnosed Date Urinary frequency 10/22/2022 Assessment & Plan (10/22/2022 9:41 AM EDT): Slight improvement, but symptoms persist. Will substitute oxybutynin with tolterodine and refer to Urologist for further evaluation. No improvement on macrobid. Reports dyysuria and urgency. Will substitue macrobid with cephalexin. Plantar fasciitis of left foot 10/22/2022 Type 2 diabetes mellitus without complication Assessment & Plan (05/06/2022 11:29 AM EST): A1c 7.4 Pt admits dietary indiscretion Has a sedentary lifestyle and a new job as a spa receptionist Advised to start exercising and to resume her low carb diet Follow up in 2 months or so. Essential hypertension 12/19/2013 Assessment & Plan (05/06/2022 11:28 AM EST): Stable Norvasc discontinued because of lower limb edema Start Chlorthalidone 25 mg daily Labs in 1 week DASH diet Obesity 12/19/2013 Mild chronic obstructive pulmonary disease (CMS/ HCC) 01/27/2010 Assessment & Plan (05/06/2022 11:28 AM EST): Stable No change Continue w/ Advair Encounters Date Type Department Care Team Description 02/11/2025 Travel 01/30/2025 Refill [facility] [address] [place], [place] [phone] Josr Veliz MD 01/24/2025 Refill [facility] [address] [place] [address] Josr Veliz MD 01/10/2025 Results Follow-Up [facility] [address] [place] [address] Ethel San RN POCT Urinalysis, Culture, Urine, Routine 01/08/2025 Orders Only [facility] [address] [place] [address] Jors Veliz MD Urinary frequency (Primary Dx); UTI symptoms 01/07/2025 2:30 PM EDT Office Visit [facility] [address] [place] [address] Josr Veliz MD Essential hypertension (Primary Dx); Mild chronic obstructive pulmonary disease ([facility]); Type 2 diabetes mellitus without complication, without long-term current use of insulin ([facility]); Class 3 severe obesity due to excess calories with serious comorbidity and body mass index (BMI) of 40.0 to 44.9 in adult; E. coli UTI; Excessive sweating, local; Heartburn; Swelling of both ankles; Essential hypertension; Urinary frequency 01/07/2025 Travel 11/30/2024 Refill [facility] [address] [place] [address] Josr Veliz MD Type 2 diabetes mellitus without complication, without long-term current use of insulin ([facility]) 11/12/2024 Refill [facility] [address] [place] [address] Josr Veliz MD Essential hypertension from Last 3 Months Immunizations Immunization Administration Dates Next Due DTP 08/16/1972,10/14/1967,09/07/1967 Hep B, adult 07/06/1996,02/06/1996,01/02/1996 Influenza, Split (incl. reji fied surface antigen) 03/12/2013 Jaz SARS-CoV-2 Vaccination 07/02/2020 MMR 01/04/1983 OPV, Trivalent 08/16/1972,10/14/1967,09/12/1967 TD (adult), 2 Lf tetanus tox oid, preservative free, adsorbed 12/26/1980 Tdap 12/13/2022,03/12/2013 Zoster, Recombinant 10/06/2020,08/01/2020 Social History Tobacco Use Types Packs/Day Years Used Date Smoking Tobacco: Former Cigarettes 0.3 28 Passive Smoke Exposure: Never Smokeless Tobacco: Never Tobacco Cessation:Counseling Given: Not Answered Alcohol Use Standard Drinks/Week Comments Defer 0 [...] Orientation Straight 02/15/2022 10 :21 AM EDT Last Filed Vital Signs Vital Sign Reading Time Taken Comments Blood Pressure 142/70 10/11/2024 3:54 PM EDT Pulse 78 10/11/2024 3:54 PM EDT Temperature 36.6 C (97.9 F) 10/11/2024 3:54 PM EDT Respiratory Rate 18 10/11/2024 3:54 PM EDT Oxygen Saturation 98% 10/11/2024 3:54 PM EDT Inhaled Oxygen Concentration - - Weight 116 kg (255 lb) 10/11/2024 3:54 PM EDT Height 165.1 cm (5' 5 ) 08/09/2024 9:50 AM EDT Body Mass Index 42.43 08/09/2024 9:50 AM EDT Plan of Treatment Upcoming Encounters Date Type Department Care Team ([facility] st Contact Info) Description 02/18/2025 4:00 PM EST Office Visit [facility] [address] [place] [address] Josr Veliz MD [address] [place] [address] Health Maintenance Due Date Last Done Comments CT Colonography 1965 Colonoscopy 1966 Colorectal Cancer Screening 1965 FIT DNA/Cologuard 1966 FIT 1965 FOBT 1965 Sigmoidoscopy 1965 Diabetes: Urine Protein Screening 1985 Dental X-Ray: Bitewings 08/26/2021 08/25/2020 Dental Oral Exam 07/28/2022 01/26/2022 Dental Prophylaxis 12/09/2022 06/10/2022, 01/11/2019 Pap Smear 08/20/2023 08/19/2020 Mammogram 02/19/2024 02/18/2023, 07/18, 08/13/2022, Additional history exists Diabetes: Hemoglobin A1C 11/08/2024 025, 03/02/2024, 03/25/2023, Additional history exists COVID-19 Vaccine ( season) 2024 07/02/2020 Influenza Vaccine (#1) 2024 03/12/2013 Dental X-Ray: Full Mouth 01/27/2025 01/26/2022 Disability Screening 03/27/2025 03/27/2024 Lipid Panel 03/31/2025 03/31/2024, 04/19, 11/02/2019 Eye Exam 06/30/2025 07/01/2023 Alcohol/Substance Use Screening 08/09/2025 08/09/2024 Depression Screening 08/09/2025 08/09/2024, 08/10/19 Diabetes: Foot Exam 08/09/2025 08/09/2024, 03/25/2023, 03/25/2023, Additional history exists Pneumococcal Vaccine: 50+ Years (1 of 2 - PCV) 08/09/2025 Postponed from 1985 (Patient Refused) SDOH Screening 08/09/2025 08/09/2024 Tobacco Screening 08/09/2025 08/09/2024 Cervical Cancer Screening 08/19/2025 HPV/Cotest 08/19/2025 08/19/2020, 08/09/2017 DTaP/Tdap/Td Vaccines (7 - Td or Tdap) 12/13/2032 12/13/2022, 03/12/2013, 12/26/1980, Additional history exists RSV Patients and Patients Aged 60 years or older (1 - 1-dose 75+ series) 2041 IPV Vaccines Completed 08/16/1972, 09/17, 09/12/1967 Hepatitis B Vaccines Completed 07/06/1996, 02/06/1996, 01/02/1996 Zoster Vaccines Completed 10/06/2020, 08/01/2020 HIV Screening Completed 03/31/2024 Hepatitis C Screening Completed 03/31/2024 HIB Vaccines Aged Out No longer eligi ble based on patient's age to complete this topic HPV Vaccines Aged Out No longer eligi ble based on patient's age to complete this topic Hepatitis A Vaccines Aged Out No long er eligible based on patient's age to complete this topic Meningococcal B Vaccine Aged Out No l onger eligible based on patient's age to complete this topic Meningococcal Vaccine Aged Out No alpa shyla eligible based on patient's age to complete this topic RSV under 20 months Aged Out No longe r eligible based on patient's age to complete this topic Rotavirus Vaccines Aged Out No longer eligible based on patient's age to complete this topic Procedures Procedure Name Priority Date/Time Associated Diagnosis Comments POCT URINALYSIS DIPSTICK Routine 01/07/2025 3:14 PM EDT Type 2 diabetes mellitus without complication, without long-term current use of insulin ([facility]) E. coli UTI CULTURE, URINE, ROUTINE Routine 01/07/2025 3:00 PM EDT E. coli UTI POCT GLYCATED HEMOGLOBIN, TOTAL Routine 08/09/2024 9:59 AM EDT Type 2 diabetes mellitus without complication, without long-term current use of insulin ([facility]) HEPATITIS C ANTIBODY Routine 03/31/2024 10:20 AM EST Type 2 diabetes mellitus without complication, without long-term current use of insulin ([facility]) Annual physical exam Essential hypertension HIV 1/2 ANTIGEN/ANTIBODY, FOURTH GENERATION W/RFL Routine 03/31/2024 10:20 AM EST Type 2 diabetes mellitus without complication, without long-term current use of insulin ([facility]) Annual physical exam Essential hypertension LIPID PANEL, STANDARD Routine 03/31/2024 10:20 AM EST Type 2 diabetes mellitus without complication, without long-term current use of insulin ([facility]) Annual physical exam Essential hypertension HM DIABETES EYE EXAM Routine 07/01/2023 9:22 AM EDT BI MAMMOGRAM SCREENING TOMOSYNTHESIS BILATERAL Routine 02/18/2023 4:30 PM EDT PROPHYLAXIS - ADULT Routine 06/10/2022 1 1:00 AM EST HPV MRNA E6/E7 Routine 08/19/2020 2:51 PM EDT THINPREP PAP Routine 08/19/2020 2:51 PM EDT from Last 3 Months or Most Recently Relevant to Health Maintenance Results * (ABNORMAL) POCT Urinalysis (01/07/2025 3:14 PM EDT) Color, UA Yellow Clarity, UA Clear Glucose, UA Negative Bilirubin, UA Negative Ketones, UA Negative Spec Grav, UA 1.005 Blood, UA Negative Negative, None Detected pH, UA 5.5 Protein, UA Negative Urobilinogen, UA 0.2 Leukocytes, UA Few 15(A) Negative, Rare, Trace Comment:small Nitrite, UA Negative Negative, None Detected Appearance, UA clear QC Media Lot # [id number] Lot# Expiration Date Urine 01/07/2025 3:14 PM EDT us Josr Veliz MD POINT OF CARE TEST ENTER/ED IT ORDERABLES Final Result * Culture, Urine, Routine (01/07/2025 3:00 PM EDT) Urine Urine specimen obtained by clean catch procedure / Unknown 01/07/2025 3:00 PM EDT 01/07/2025 5:56 PM EDT Comment:UACC Narrative [facility] - 01/09/2025 8:18 AM EDT Escherichia coli Quant > 100,000 cfu/mL Escherichia coli: Ampicillin <=2(S) Escherichia coli: Cefazolin (Urine) <=1(S) Escherichia coli: Cefepime <=0.12(S) Escherichia coli: Ceftriaxone <=0.25(S) Escherichia coli: Ciprofloxacin <=0.06(S) Escherichia coli: Gentamicin <=1(S) Escherichia coli: Nitrofurantoin <=16(S) Escherichia coli: Trimethoprim/Sulfamethoxazole <=20(S) Specimen Source: Urine clean catch us Josr Veliz MD LAB MICROBIOLOGY - GENERAL ORDERABLES Final Result [facility] [address] [place] [phone] * (ABNORMAL) POCT HGB A1C (08/09/2024 9:59 AM EDT) Hemoglobin A1C 8.4(A) 4.0 - 6.0 % QC Media Lot # [id number] Lot# Expiration Date [id number] Blood 08/09/2024 9:59 AM EDT Josr Veliz MD POINT OF CARE TEST ENTER/ED IT ORDERABLES Final Result * Hepatitis C Ab (03/31/2024 10:20 AM EST) Hepatitis C Antibody Nonreactive Nonreactive [facility] Comment:Antibodies to HCV no t detected; does not exclude early acuteHCV infection. Blood Venous blood specimen / Unknown 03/31/2024 10:20 AM EST 03/31/2024 10:20 AM EST Josr Veliz MD LAB BLOOD ORDERABLES Final Result [facility] [address] [place] [phone] * HIV-1/2 Antigen and Antibodies, Fourth Generation, with Reflexes (03/31/2024 10:20 AM EST) HIV AB/AG Nonreactive Nonreactive [facility] Comment:HIV-1 p24 Ag and/or HIV-1/HIV-2 Ab not detected.A test result that is nonreactive does not exclude thepossibility of exposure to or infection with HIV-1 and/orHIV-2. Nonreactive results in this assay for individualswith prior exposure to HIV-1 and/or HIV-2 may be due toantigen and antibody levels that are below the limit ofdetection of this assay.The [employer] HIV Ag/Ab Combo assay result andsupplemental assay results should be interpreted inconjunction with the patient's clinical presentation,history and other laboratory results. If the results areinconsistent with clinical evidence, additional testing issuggested to confirm the result. Blood Venous blood specimen / Unknown 03/31/2024 10:20 AM EST 03/31/2024 10:20 AM EST us Josr Veliz MD LAB BLOOD ORDERABLES Final Result Performing Organization Address [facility] Co de Phone Number [facility] [address] [place] [address] [phone] * (ABNORMAL) Lipid Panel, Standard (03/31/2024 10:20 AM EST) Triglycerides 55 <150 mg/dL [facility] Comment:Desirable Triglyceri de: less than 150 mg/dLBorderline High Triglyceride 150-199 mg/dLHigh Triglyceride: 200-499 mg/dLVery High Triglyceride: greater than or equal to 5OO mg/dL Cholesterol 95 <200 mg/dL [facility] Comment:Desirable Cholestero l: less than 200 mg/dLBorderline High Cholesterol: 200-239 mg/dLHigh Cholesterol: greater than 239 mg/dL LDL Cholesterol Calculated 50 <100 mg/dL [facility] Comment:Desirable LDL: less than 100 mg/dLNear Optimal/Above Optimal LDL: 110- 129 mg/dLBorderline High LDL: 130-159 mg/dLHigh LDL: 160-189 mg/dLVery High LDL: greater than or equal to 190 mg/dL HDL Cholesterol 34(L) >40 mg/dL [facility] Comment:Desirable HDL: great er than 40 mg/dL Note: This HDL assay may give artificially low results in patients with liver disease. Blood Venous blood specimen / Unknown 03/31/2024 10:20 AM EST 03/31/2024 10:20 AM EST us Josr Veliz MD LAB BLOOD ORDERABLES Final Result Performing Organization Address City/[facility]/ZIP Co de Phone Number [facility] [address] [place] [address] [phone] * Diabetes Eye Exam (07/01/2023 9:22 AM EDT) us Historical Provider HEALTH MAINTENANCE Final Result * BI Mammogram Screening Tomosynthesis Bilateral (02/18/2023 4:30 PM EDT) Anatomical Region Laterality Modality Breast Bilateral Mammography 02/18/2023 4:30 PM EDT Narrative 03/11/2023 1:31 PM EST [facility] [address] [place] [address] Mammography Report Signed Patient: Brittanie Pinon MR#: [id number] : 1965 Acct:[id number] Age/Sex: 57 / F ADM Date: 02/18/23 Loc: [facility] Attending Dr: Josr Veliz MD Ordering Physician: Josr Veliz MD Results: 1 Negative Date of Service: 02/18/23 Follow Up: 1 Year From Orig inal Mammogram Procedure(s): MM tomosynthesis screening BI Accession Number(s): [id number] cc: Josr Veliz MD EXAMINATION: MM SCREENING DIGITAL BREAST TOMOSYNTHESIS, BILATERAL CLINICAL INFORMATION: Screening. Asymptomatic. COMPARISON: Mammography: This study is compared with prior exams dating back to 2020. TECHNIQUE: Digital breast tomosynthesis is performed in both the craniocaudal and mediolateral oblique views along with computer-aided detection (CAD). Synthesized 2D images are generated from the tomosynthesis. FINDINGS: The breasts are almost entirely fatty (ACR BI-RADS breast composition Category a). There are no significant masses, abnormal calcifications, or other abnormalities. MM/MM tomosynthesis screening BI IMPRESSION: No mammographic evidence of malignancy. ASSESSMENT: BI-RADS BI-RADS 1 - Negative RECOMMENDATION: Routine annual mammography screening. 1 year F/U This examination should not preclude the clinical evaluation of a suspicious palpable abnormality. This patient's information was entered into a reminder system with a target due date for their next mammogram. Dictated By: Kimberly Willingham MD Signed By: <Electronically signed by Kimberly Willingham MD in OV> 03/11/23 1327 DD/ 1630 TD/TT: Power And Recovery Shift Engineer: Procedure Note Donotuseinterpreter, Image - 03/11/[address] [place] [address] [place] [address] Mammography Report Signed Patient: Brittanie Pinon MMR#: [id number] : 1965Acct:[id number] Age/Sex: 57 / FADM Date: 02/18/23 Loc: [facility]MAMMO Attending Dr: Josr Veliz MD Ordering Physician: Josr Veliz MDResults: 1 Negative Date of Service: 02/18/23Follow Up: 1 Year From [facility]a Mammogram Procedure(s): MM tomosynthesis screening BI Accession Number(s): [id number] cc: Josr Veliz MD EXAMINATION: MM SCREENING DIGITAL BREAST TOMOSYNTHESIS, BILATERAL CLINICAL INFORMATION: Screening. Asymptomatic. COMPARISON: Mammography: This study is compared with prior exams dating back to 2020. TECHNIQUE: Digital breast tomosynthesis is performed in both the craniocaudal and mediolateral oblique views along with computer-aided detection (CAD). Synthesized 2D images are generated from the tomosynthesis. FINDINGS: The breasts are almost entirely fatty (ACR BI-RADS breast composition Category a). There are no significant masses, abnormal calcifications, or other abnormalities. MM/MM tomosynthesis screening BI IMPRESSION: No mammographic evidence of malignancy. ASSESSMENT: BI-RADS BI-RADS 1 - Negative RECOMMENDATION: Routine annual mammography screening. 1 year F/U This examination should not preclude the clinical evaluation of a suspicious palpable abnormality. This patient's information was entered into a reminder system with a target due date for their next mammogram. Dictated By: Kimberly Willingham MD Signed By: <Electronically signed by Kimberly Willingham MD in OV> 03/11/23 1327 DD/ 1630 TD/TT: Power And Recovery Shift Engineer: us Josr Veliz MD IMG BI PROCEDURES Final Res ult * THINPREP PAP (08/19/2020 2:51 PM EDT) Clinical Information: None given [facility] COMMENT SEE COMMENT [facility] Comment: EXPLANATORY NOTE: The Pap is a screening test for cervical cancer. It is not a diagnostic test and is subject to false negative and false positive results. It is most reliable when a satisfactory sample, regularly obtained, is submitted with relevant clinical findings and history, and when the Pap result is evaluated along with historic and current clinical information. Riveting Machine Operator Automatic : SEE COMMENT [facility] Comment: STEFANI CT(ASCP) CT screening location: [place] [address] Interpretation/R esult: Negative for intraepithelial lesion or malignancy. [facility] LMP: NONE [facility]IVEN [facility] Prev. BX: NONE [facility]IVEN [facility] Prev. PAP: NONE GIVEN [facility] SOURCE: None given [facility] Statement Of Adequacy: SEE COMMENT [facility] Comment: Satisfactory for evaluation. Endocervical/transformation zone component absent. 08/19/2020 2:51 PM EDT Nichole ELIZABETH LAB PATHOLOGY ORDERABLES Final Result Performing Organization Address [facility] de Phone Number [facility] [address] [place] [address] * HPV mRNA E6/E7 (08/19/2020 2:51 PM EDT) HPV nRNA E6/E7 Not Detected Not Detected [facility] Comment: Methodology: Barker Peeler-Mediated Amplification This assay detects E6/E7 viral messenger RNA (mRNA) from 14 high-risk HPV types (16,18,31,33,35,39,45,51,52,56,58,59,66,68). The analytical performance characteristics of this assay have been determined by [employer]. The modifications have not been cleared or approved by the FDA. This assay has been validated pursuant to the CLIA regulations and is used for clinical purposes. For additional information, please refer to http://education.[employer].thinkingphones/faq/OIL948v9 (This link if provided for information/ educational purposes only.) 08/19/2020 2:51 PM EDT Nichole ELIZABETH LAB BLOOD ORDERABLES Cathi l Result Performing Organization Address [facility] Co de Phone Number [facility] [address] [place] [address], from Last 3 Months or Most Recently Relevant to Health Maintenance Insurance [place] [address] [place], [place] [facility] MEDICAID [employer] [facility] * Guarantor: Brittanie Pinon Account Type Relation to Patient Date of Phone Billing Address Personal/Family Self [place] * Guarantor: Brittanie Pinon Account Type Relation to Patient Date of Phone Billing Address Personal/[place] * Guarantor: Brittanie Pinon Account Type Relation to Patient Date of Phone Billing Address Personal/[place] Care Teams Silk Winding Machine Operator Relationship Specialty Start Date End Date Josr Veliz MD [address] [place] [address] PCP - General Internal Medicine 04/18/18
== END 2025-02-12 10:26 | disposition home or self-care (01) ==
LOC: HO.HPS 09:52
PROVIDERS: PCP Internal Medicine; Visit Provider Internal Medicine Pulmonary Disease
DX: J44.9 Chronic obstructive pulmonary disease, unspecified (principal); Z91.09 Other allergy status, other than to drugs and biological substances
CPT/HCPCS: 99214

== ENCOUNTER → 2025-02-12 09:51 | Outpatient (BNVA) | payer MEDICAID, SELFPAY | PROVIDERS: PCP Internal Medicine; Visit Provider Internal Medicine Pulmonary Disease | DX: J44.89 Other specified chronic obstructive pulmonary disease (principal); Z91.09 Other allergy status, other than to drugs and biological substances | CPT/HCPCS: 99212 ==

== ENCOUNTER 2025-04-04 15:47 | Outpatient (AMB) | payer MEDICAID, SELFPAY ==
--- NOTE | 2025-04-04 16:05 | MHC.OFFVIS ---
Intake Visit Reasons: UA/Follow up (set)PVR) Intake Note: 59 Year old female presents today for a ua follow up iching cloudy urine and Oder to the urine PVR: 8 MLS Allergies amoxicillin Allergy (Intermediate, Verified 02/12/25 10:17) Rash latex Allergy (Intermediate, Verified 02/12/25 10:17) Rash erythromycin base Adverse Reaction (Intermediate, Verified 02/12/25 10:17) Gastrointestinal Upset Lidocaine Allergy (Unknown, Uncoded 08/12/23 10:37) Unknown Medication List - Last Reconciled 04/04/25 by Manjinder Reddy MD albuterol sulfate 90 mcg/actuation (ProAir HFA) 2 puffs inhalation Q6H PRN amlodipine (Norvasc) 2.5 mg PO DAILY atenolol 25 mg PO DAILY atorvastatin 80 mg PO DAILY codeine-guaifenesin 10-100 mg/5 mL 10 mL PO Q4-6H PRN cranberry extract 425 mg PO BID cyclobenzaprine 10 mg PO Q8H PRN estradiol 10 mcg vaginal 2XW fluticasone propion-salmeterol 115-21 mcg/actuation (Advair HFA) 2 puffs PO BID hydrocortisone 1% (Anti-Itch (hydrocortisone)) 1 appl topical TID PRN ipratropium bromide 2 sprays intranasal TID-QID PRN ipratropium-albuterol 20-100 mcg/actuation (Combivent Respimat) 1 puff inhalation QID levofloxacin 750 mg PO DAILY linaclotide (Linzess) 72 mcg PO QAM meloxicam (Mobic) 7.5 mg PO DAILY montelukast 10 mg PO DAILY nitrofurantoin monohyd/m-cryst 100 mg (Macrobid) 100 mg PO BID 7 days nitrofurantoin monohyd/m-cryst 100 mg (Macrobid) 100 mg PO DAILY 7 days simethicone (Gas Relief (simethicone)) 180 mg PO BID PRN HPI Comments Details: 04/04/25--here with h/o recurrent UTI's -- has symptoms, UA nitrite positive, macrobid sent to pharm, cont cranberry, vagifem fu with Nurse in 10 weeks, fu with Dr. Santos in 4 months 08/12/2023--Brittanie is here for office cystoscopy. The patient has a history of nicotine dependence. She has had persistent bacteriuria. She was placed on a suppressive course of Bactrim. She states that her urine flow is improved in the urine is looking a clearer. Cystoscopy findings: Minimal erythematous changes behind the trigone consistent cystitis follicularis. No suspicious bladder lesions noted. 06/24/23---Brittanie is a 57-year-old female who presents today to the office for FU--urinary frequency. She has had recurrent UTIs. She has been prescribed vaginal estrogen therapy and I have discussed daily cranberry supplements. Urinalysis--nitrite positive. I will empirically start Bactrim. I have discussed suppressive antibiotic therapy 04/15/23--She presents today for FU, she had renal US completed. She is complaining of stress incontinence and wears a pad. She states that she has noted the urine to be cloudy. She still has some intermittent burning. She denies any history of breast cancer. She denies any abnormal Pap smears. She has discontinued smoking cigarettes in 2010. Evaluation today?UA? Nitrite positive, leukocytes: 15; blood: tr Plan: urine c/s, macrobid 100mg bid Cont Vagifem 10 mcg Vaginal suppositories twice a week. Advised the patient to limit caffeine intake. cranberry orderer, and pyridium prn, Follow-up in 1 months with nurse for UA check and bladder scan PVR, FU with me in 10 weeks. I reviewed renal US with pt, 04/08/23- [facility] Medical History History of COVID-19 Pulmonary nodule Elevated cholesterol HTN (hypertension) Diabetes Asthma-COPD overlap syndrome Aortic atherosclerosis Chest pain Surgical History History of colonoscopy Family History Mother HTN (hypertension) H/O heart artery stent Father No problems noted. Social History Alcohol intake: current Alcohol intake frequency: holidays/special occasions only Patient Tobacco Use Status: Former Tobacco user Tobacco use type: Cigarette Years Smoked: 28 +/- Current occupational status: employed Current occupation: [employer]/rt handed Female Reproductive History Menstrual Age of Menarche: 13 Office Procedures Post Void Residual Post Residual Void Post Void Residual (PVR): 8 [id number] Void Residual by ultrasound Results AMB Urinalysis, Automated UA Leukoctes 70 Teagan/uL Last Edit by Pati Peters, A on 04/04/25 16:52 UA Nitrite Positive Last Edit by Pati Peters, RMA on 04/04/25 16:52 UA Urobilinogen 0.2 mg/dL Last Edit by Pati Peters, RMA on 04/04/25 16:52 UA Protein 0 mg/dL Last Edit by Pati Peters, RMA on 04/04/25 16:52 UA pH 5.5 Last Edit by Pati Peters, RMA on 04/04/25 16:52 UA Blood 25 Graham/uL Last Edit by Pati Peters, A on 04/04/25 16:52 UA Specific [place] 1.025 Last Edit by Pati Peters, A on 04/04/25 16:52 UA Ketone Negative Last Edit by Pati Peters, RMA on 04/04/25 16:52 UA Bilirubin 0 mg/dL Last Edit by Pati Peters, A on 04/04/25 16:52 UA Glucose 0 mg/dL Last Edit by Pati Peters, A on 04/04/25 16:52 Results Reviewed Results Reviewed: Laboratory Last Values Urine pH (Auto) 5.5 04/04/25 16:44 Specific [place] (Auto) 1.025 04/04/25 16:44 Urine Protein (Auto) 0 mg/dL 04/04/25 16:44 Glucose (UA)(Auto) 0 mg/dL 04/04/25 16:44 Urine Ketones (Auto) Negative 04/04/25 16:44 Urine Blood (Auto) 25 Graham/uL 04/04/25 16:44 Urine Nitrite (Auto) Positive 04/04/25 16:44 Urine Bilirubin (Auto) 0 mg/dL 04/04/25 16:44 Urine Urobilinogen (Auto) 0.2 mg/dL 04/04/25 16:44 Leukocyte Esterase (Auto) 70 Teagan/uL 12/18/25 16:44 Assessment & Plan Assessment & Plan Orders: Orders AMB Post Void Residual by ultrasound Today N39.0 - Urinary tract infection, site not specified AMB Urinalysis Automated Today N39.0 - Urinary tract infection, site not specified, Z13.9 - Encounter for screening, unspecified Urine Culture Today N39.0 - Urinary tract infection, site not specified Medications: New nitrofurantoin monohyd/m-cryst 100 mg (Macrobid) must administer with a meal/food 100 mg PO BID 14 caps 0RF 7 days nitrofurantoin monohyd/m-cryst 100 mg (Macrobid) must administer with a meal/food, after completing macrobid bid for 7 days start macrobid daily for 30 days 100 mg PO DAILY 30 caps 0RF 7 days Refilled estradiol 10 mcg vaginal 2XW 8 tabs 0RF cranberry extract administer with meals 425 mg PO BID 60 caps 5RF Discontinued phenazopyridine (Pyridium) Discontinued Reason: Patient no longer taking 200 mg PO BID PRN 12 tabs 1RF urinary burning sulfamethoxazole-trimethoprim 800-160 mg (Bactrim DS) Instructions: use one tablet q 12 hrs for 5 days, then continue one tablet daily until completion Discontinued Reason: Patient Completed Course 1 tab PO BID 45 tabs 0RF Coding CPT Codes Post Residual Void - PVR CPT Code: 42818-Ioit Void Residual by ultrasound ([id number])
--- OUTSIDE RECORDS SUMMARY | 2025-04-04 19:30 | XMS_ITS | Encounter Summary ---
Author Organization [employer] Address [address] [place] [address] Care Team Providers Care Railroad Brakeman Name Role Phone Josr Veliz MD Primary Care Provider [phone] Encounter Details Date Type Department Care Team ([facility] st Contact Info) Description 03/08/2024 Orders Only [facility] CHC MED & PEDS [address] [place], [place] [phone] Josr Veliz MD [address] [place] [address] Hypokalemia (Primary Dx) Social History Tobacco Use [...] Care Team (Late st Contact Info) Description 05/22/2025 9:00 AM EST Office Visit [facility] CHC MED & PEDS [address] [place], [place] [phone] Josr Veliz MD [address] [place], [place] [phone] documented as of this encounter Procedures Procedure Name Priority Date/Time Associated Diagnosis Comments POTASSIUM Routine 03/23/2024 3:30 PM EST Hypokalemia documented in this encounter Results * (ABNORMAL) Potassium (03/23/2024 3:30 PM EST) Potassium 2.8(LL) 3.3 - 5.1 mmol/L [facility] Comment:Critical value for t est(s): POTS Results called to and readback by: DR. AYOUB Person calling: [facility] Date: 03/23/24Time: 1838 Blood Venous blood specimen / Unknown 03/23/2024 3:30 PM EST 03/23/2024 5:39 PM EST us Josr Veliz MD LAB BLOOD ORDERABLES Final Result [facility] [address] [place], [place] [phone] documented in this encounter Visit Diagnoses Diagnosis Hypokalemia- Primary Hypopotassemia documented in this encounter Care Teams Railroad Brakeman Relationship Specialty Start Date End Date Josr Veliz MD [address] [place], [place] [phone] PCP - General Internal Medicine 04/18/18 documented as of this encounter
--- OUTSIDE RECORDS SUMMARY | 2025-04-04 19:30 | XMS_ITS | Encounter Summary ---
Author Organization [employer] [facility] Address [address] [place] [address] Care Team Providers Care Cable Hooker Name Role Phone Josr Veliz MD Primary Care Provider [phone] Encounter Details Date Type Department Care Team (Latest Contact Info) Description 01/26/2022 Abstract [facility] CONVERSIONS Dental, Provider, DDS Social History [...] Description 05/22/2025 9:00 AM EST Office Visit [facility] MED & PEDS [address] [place] [address] Josr Veliz MD [address] [place] [address] documented as of this encounter Visit Diagnoses Not on filedocumented in this encounter Care Teams Cable Hooker Relationship Specialty Start Date End Date Josr Veliz MD [address] [place] [address] PCP - General Internal Medicine 04/18/18 documented as of this encounter
--- OUTSIDE RECORDS SUMMARY | 2025-04-04 19:30 | XMS_ITS | Encounter Summary ---
Author Organization [employer] [facility] Address [address] [place] [address] Care Team Providers Care Terminal Block Assembler Name Role Phone Josr Veliz MD Primary Care Provider [phone] Encounter Details Date Type Department Care Team (Latest Contact Info) Description 08/25/2020 Abstract [facility] CONVERSIONS Dental, Provider, DDS Social History Tobacco [...] Description 05/22/2025 9:00 AM EST Office Visit [facility] MED & PEDS [address] [place] [address] Josr Veliz MD [address] [place] [address] documented as of this encounter Visit Diagnoses Not on filedocumented in this encounter Care Teams Terminal Block Assembler Relationship Specialty Start Date End Date Josr Veliz MD [address] [place] [address] PCP - General Internal Medicine 04/18/18 documented as of this encounter
--- OUTSIDE RECORDS SUMMARY | 2025-04-04 19:30 | XMS_ITS | Encounter Summary ---
Author Organization [employer] [facility] Address [address] [place] [address] Care Team Providers Care Traffic Director Name Role Phone Josr Veliz MD Primary Care Provider [phone] Reason for Visit * Reason Comments Med Refill Encounter Details Date Type Department Care Team ([facility] Contact Info) Description 04/21/2022 Refill [facility] MED & PEDS [address] [place] [address] Josr Veliz MD [address] [place] [address] Hypercholesterolemia (Primary Dx) Social History Tobacco Use [...] Encounters Date Type Department Care Team (Late Contact Info) Description 05/22/2025 9:00 AM EST Office Visit [facility] CHC MED & PEDS [address] [place] [address] Josr Veliz MD [address] [place] [address] documented as of this encounter Visit Diagnoses Diagnosis Hypercholesterolemia- Primary Pure hypercholesterolemia documented in this encounter Care Teams Traffic Director Relationship Specialty Start Date End Date Josr Veliz MD [address] [place] [address] PCP - General Internal Medicine 04/18/18 documented as of this encounter
--- OUTSIDE RECORDS SUMMARY | 2025-04-04 19:30 | XMS_ITS | Encounter Summary ---
Author Organization [employer] Address [address] [place] [address] Care Team Providers Care Oil Well Cable Tool Driller Name Role Phone Josr Veliz MD Primary Care Provider [phone] Reason for Referral * Consultation (Routine) - Closed Specialty Diagnoses / Procedures Referred By Contgustabo t Referred To Contact Physical Therapy Diagnoses Left hip pain Right hip pain Josr Veliz MD [address] [place] [address] Phone: tel: fax: [facility] [address] [place] [address] Phone: tel: fax: Referral ID Status Reason Start Date Expiration Date V isits Requested Visits Authorized [id number] Closed Specialty Services Required 09/24/2024 09/24/2025 20 20 Encounter Details Date Type Department Care Team ([facility] st Contact Info) Description 09/21/2024 Orders Only [facility] CHC MED & PEDS [address] [place] [address] Josr Veliz MD [address] [place], [place] [phone] Left hip pain (Primary Dx); Right hip [...] Upcoming Encounters Date Type Department Care Team ([facility] st Contact Info) Description 05/22/2025 9:00 AM EST Office Visit [facility] CHC MED & PEDS [address] [place] [address] Josr Veliz MD [address] [place] [address] Scheduled Referrals Name Type Priority Associated Diagnoses [...] documented as of this encounter Care Teams Oil Well Cable Tool Driller Relationship Specialty Start Date End Date Josr Veliz MD [address] [place] [address] PCP - General Internal Medicine 04/18/18 documented as of this encounter
--- OUTSIDE RECORDS SUMMARY | 2025-04-04 19:31 | XMS_ITS | Encounter Summary ---
Author Organization [employer] Address [address] [facility] [address] [place] [address] Care Team Providers Care Assistant Plant Manager Name Role Phone Josr Veliz MD Primary Care Provider [phone] Encounter Details Date Type Department Care Team (Late st Contact Info) Description 04/01/2024 Orders Only [facility] [address] [place] [address] [phone] Olvin Presley MD [address] [place] [phone] Social History Tobacco Use Types Packs/Day Years [...] Description 05/22/2025 9:00 AM EST Office Visit [facility] MED & PEDS [address] [place] [address] Josr Veliz MD [address] [place] [address] documented as of this encounter Visit Diagnoses Not on filedocumented in this encounter Care Teams Assistant Plant Manager Relationship Specialty Start Date End Date Josr Veliz MD [address] [place] [address] PCP - General Internal Medicine 04/18/18 documented as of this encounter
--- OUTSIDE RECORDS SUMMARY | 2025-04-04 19:31 | XMS_ITS | Encounter Summary ---
Author Organization [employer] Address [address] [place] [address] 7 [place] [address] Care Team Providers Care Vacuum Metalizer Operator Name Role Phone Josr Veliz MD Primary Care Provider [phone] Encounter Details Date Type Department Care Team (Late Contact Info) Description 10/13/2022 Abstract [facility] MED & PEDS [address] [place] [address] Josr Veliz MD [address] [place] [address] Social History Tobacco Use Types Packs/Day Years [...] Description 05/22/2025 9:00 AM EST Office Visit [facility] MED & PEDS [address] [place] [address] Josr Veliz MD [address] [place] [address] documented as of this encounter Procedures Procedure [...] on filedocumented in this encounter Care Teams Vacuum Metalizer Operator Relationship Specialty Start Date End Date Josr Veliz MD [address] [place] [address] PCP - General Internal Medicine 04/18/18 documented as of this encounter
--- OUTSIDE RECORDS SUMMARY | 2025-04-04 19:31 | XMS_ITS | Encounter Summary ---
Author Organization [employer] Address [address] [facility] 7 [place] [address] Care Team Providers Care Crimper Operator Name Role Phone Josr Veliz MD Primary Care Provider [phone] Encounter Details Date Type Department Care Team ([facility] st Contact Info) Description 04/03/2025 Orders Only [facility] CHC MED & PEDS [address] [place], [place] [phone] Josr Veliz MD [address] [place] [address] Type 2 diabetes mellitus without complication, without long-term current use of insulin (HCC) (Primary Dx) Social History Tobacco Use Types [...] Upcoming Encounters Date Type Department Care Team ([facility] Contact Info) Description 05/22/2025 9:00 AM EST Office Visit [facility] MED & PEDS [address] [place] [address] Josr Veliz MD [address] [place] [address] documented as of this encounter Goals Goal Patient Goal Type Associated Problems Recent Progress Patient-Stated? Author Help patients manage their type 2 diabetes Care Plan Help patients manage their type 2 diabetes No Ingris Longoria Weekly blood pressure task Care Plan Weekly blood pressure task No Ingris Longoria Help patients manage their type 2 diabetes Care Plan Help patients manage their type 2 diabetes No Ingris Longoria Patient has chronic kidney disease Care Plan Patient has chronic kidney disease No Ingris Longoria Weekly blood pressure task Care Plan Weekly blood pressure task No Ingris Longoria Patient has chronic kidney disease Care Plan Patient has chronic kidney disease No Ingris Longoria Weekly blood pressure task Care Plan Weekly blood pressure task No Josr Veliz MD Weekly blood pressure task Care Plan Weekly blood pressure task No Josr Veliz MD Patient has chronic kidney disease Care Plan Patient has chronic kidney disease No Josr Veliz MD Patient has chronic kidney disease Care Plan Patient has chronic kidney disease No Josr Veliz MD documented as of this encounter Visit Diagnoses Diagnosis Type 2 diabetes mellitus without complication, without long-term current use of insulin (HCC)- Primary documented in this encounter Additional Health Concerns Active Problems Noted Date Diagnosed Date Help patients manage their type 2 diabetes 04/03 Weekly blood pressure task 04/03/2025 Help patients manage their type 2 diabetes 04/03 Patient has chronic kidney disease 04/03/2025 Weekly blood pressure task 04/03/2025 Patient has chronic kidney disease 04/03/2025 Weekly blood pressure task 04/03/2025 Weekly blood pressure task 04/03/2025 Patient has chronic kidney disease 04/03/2025 Patient has chronic kidney disease 04/03/2025 Assessment Noted Time PHQ-9 Depression Total Score: 8 08/10/19 25 10:05 AM EDT documented as of this encounter Care Teams Crimper Operator Relationship Specialty Start Date End Date Josr Veliz MD [address] [place] [address] PCP - General Internal Medicine 04/18/18 documented as of this encounter
--- OUTSIDE RECORDS SUMMARY | 2025-04-04 19:31 | XMS_ITS | Encounter Summary ---
Author Organization [employer] Address [address] [facility] 7t [place] [address] Care Team Providers Care Application Packaging Consultant Name Role Phone Josr Veliz MD Primary Care Provider [phone] Encounter Details Date Type Department Care Team ([facility] st Contact Info) Description 06/30/2023 Orders Only [facility] CHC MED & PEDS [address] [place], [place] [phone] Josr Veliz MD [address] [place] [address] Social History Tobacco Use Types Packs/Day Years [...] the past 12 months, has t he [employer] oil or water company threatened to shut [...] Description 05/22/2025 9:00 AM EST Office Visit [facility] MED & PEDS [address] [place] [address] Josr Veliz MD [address] [place] [address] documented as of this encounter Visit Diagnoses Not on filedocumented in this encounter Care Teams Application Packaging Consultant Relationship Specialty Start Date End Date Josr Veliz MD [address] [place] [address] PCP - General Internal Medicine 04/18/18 documented as of this encounter
--- OUTSIDE RECORDS SUMMARY | 2025-04-04 19:31 | XMS_ITS | Encounter Summary ---
Author Organization [email or web address] Address [address] [facility] 7t [place] [address] Care Team Providers Care Ski Technician Name Role Phone Josr Veliz MD Primary Care Provider [phone] Encounter Details Date Type Department Care Team ([facility] st Contact Info) Description 01/08/2025 Orders Only [facility] CHC MED & PEDS [address] [place], [place] [phone] Josr Veliz MD [address] [place] [address] Urinary frequency (Primary Dx); UTI symptoms Social [...] Description 05/22/2025 9:00 AM EST Office Visit [facility] MED & PEDS [address] [place] [address] Josr Veliz MD [address] [place] [address] documented as of this encounter Visit Diagnoses Diagnosis Urinary frequency- Primary UTI symptoms documented in this encounter Additional Health Concerns Assessment Noted Time PHQ-9 Depression Total Score: 8 08/10/19 25 10:05 AM EDT documented as of this encounter Care Teams Ski Technician Relationship Specialty Start Date End Date Josr Veliz MD [address] [place] [address] PCP - General Internal Medicine 04/18/18 documented as of this encounter
--- OUTSIDE RECORDS SUMMARY | 2025-04-04 19:31 | XMS_ITS | Clinical Summary ---
Author Organization [facility] Address [address] [place] [address] Care Team Providers Care Partner Name Role Phone No, Referring Primary Care [...] Mammogram 08/13/2024 08/13/2022 Hemoglobin A1C 08/30/2024 03/02/2024 Influenza Vaccine (#1) 2024 03/12/2013 COVID-19 Vaccine (2 - 2024-2 6 season) 2024 07/02/2020 DTaP,Tdap,and Td Vaccines (7 - Td or Tdap) 12/13/2032 12/13/2022, 03/12/2013, 12/26/1980, Additional history exists Hepatitis B Vaccines Completed 07/06/1996, 02/06/1996, 01/02/1996 Zoster Vaccines Completed 10/06/2020, 08/01/2020 HIV Screening Completed 03/31/2024, 03/31/2024 Insurance [facility] Care Teams Partner Relationship Specialty Start Date End Date No, Referring PCP - General 07/23/24
--- OUTSIDE RECORDS SUMMARY | 2025-04-04 19:31 | XMS_ITS | Encounter Summary ---
Author Organization [employer] Address [address] [place] [address] [place] [address] Care Team Providers Care Parts Clerk Plant Maintenance Name Role Phone Josr Veliz MD Primary Care Provider [phone] Reason for Visit * Reason Onset Date Comments Referral 02/04/2023 Encounter Details Date Type Department Care Team ([facility] Contact Info) Description 02/04/2023 Telephone [facility] CHC MED & PEDS [address] [place], [place] [phone] Josr Veliz MD [address] [place] [address] Referral Social History Tobacco Use Types Packs/Day [...] Tc from pt requesting a referral Location: [address] [place] [address] Date: n/a Time: n/a Specialty: [facility] documented in this encounter Plan of Treatment Upcoming Encounters Date Type Department Care Team (Late st Contact Info) Description 05/22/2025 9:00 AM EST Office Visit [facility] MED & PEDS [address] [place] [address] Josr Veliz MD [address] [place] [address] documented as of this encounter Visit Diagnoses Not on filedocumented in this encounter Care Teams Parts Clerk Plant Maintenance Relationship Specialty Start Date End Date Josr Veliz MD [address] [place] [address] PCP - General Internal Medicine 04/18/18 documented as of this encounter
--- OUTSIDE RECORDS SUMMARY | 2025-04-04 19:31 | XMS_ITS | Encounter Summary ---
Author Organization [employer] Address [address] [place] [address] [place] [address] Care Team Providers Care Tram Operator Name Role Phone Josr Veliz MD Primary Care Provider [phone] Reason for Visit * Reason Onset Date Comments Nurse Triage 02/03/2023 Encounter Details Date Type Department Care Team ([facility] st Contact Info) Description 02/03/2023 Telephone [facility] [address] [place] [address] Josr Veliz MD [address] [place] [address] Nurse Triage Social History Tobacco Use Types [...] Description 05/22/2025 9:00 AM EST Office Visit [facility] [address] [place] [address] Josr Veliz MD [address] [place] [address] documented as of this encounter Visit Diagnoses Not on filedocumented in this encounter Care Teams Tram Operator Relationship Specialty Start Date End Date Josr Veliz MD [address] [place] [address] PCP - General Internal Medicine 04/18/18 documented as of this encounter
--- OUTSIDE RECORDS SUMMARY | 2025-04-04 19:31 | XMS_ITS | Encounter Summary ---
Author Organization [employer] Address [address] [facility] 7 [place] [address] Care Team Providers Care Secret Service Agent Name Role Phone Josr Veliz MD Primary Care Provider [phone] Reason for Visit * Reason Onset Date Comments Medication Question 04/03/2025 Encounter Details Date Type Department Care Team ([facility] st Contact Info) Description 04/03/2025 Telephone [facility] [address] [place] [address] Josr Veliz MD [address] [place] [address] Medication Question Social History Tobacco Use Types [...] encounter Miscellaneous Notes * Telephone Encounter - Mandy Ruelas RN - 04/03/2025 4:36 PM EST Called pt regarding medication adjustment, spoke to pt. Advised that we consulted her PCP and he agrees with decreasing the dose back to 3 mg for now. Advised home care: rest, fluids, small meals, and call back as needed. Pt understands and agrees with plan. * Telephone Encounter - Ingris Longoria - 04/03/2025 2:30 PM EST TC from pt calling to see if pcp can decreased medication Trulicity 4.5mg due to trulicity 3mg is making her throw up. PCP Dr. Veliz documented in this encounter Plan of Treatment Upcoming Encounters Date Type Department Care Team ([facility] st Contact Info) Description 05/22/2025 9:00 AM EST Office Visit [facility] [address] [place] [address] Josr Veliz MD [address] [place] [address] documented as of this encounter Goals Goal [...] filedocumented in this encounter Additional Health Concerns Active [...] documented as of this encounter Care Teams Secret Service Agent Relationship Specialty Start Date End Date Josr Veliz MD [address] [place] [id number] PCP - General Internal Medicine 04/18/18 documented as of this encounter
--- OUTSIDE RECORDS SUMMARY | 2025-04-04 19:31 | XMS_ITS | Encounter Summary ---
Author Organization [employer] Address [address] [facility] 7 [place] [address] Care Team Providers Care Mine Environmental Engineer Name Role Phone Josr Veliz MD Primary Care Provider [phone] Reason for Visit * Reason Onset Date Comments Medication Question 03/30/2024 Encounter Details Date Type Department Care Team ([facility] st Contact Info) Description 03/30/2024 Telephone [facility] [address] [place] [address] Josr Veliz MD [address] [place], [place] [phone] Medication Question Social History Tobacco Use Types [...] to her bruising Easily. Contact pt at [phone] documented in this encounter Plan of Treatment Upcoming Encounters Date Type Department Care Team (Late st Contact Info) Description 05/22/2025 9:00 AM EST Office Visit [facility] [address] [place] [address] Josr Veliz MD [address] [place] [address] documented as of this encounter Visit Diagnoses Not on filedocumented in this encounter Care Teams Mine Environmental Engineer Relationship Specialty Start Date End Date Josr Veliz MD [address] [place] [address] PCP - General Internal Medicine 04/18/18 documented as of this encounter
--- OUTSIDE RECORDS SUMMARY | 2025-04-04 19:31 | XMS_ITS | Encounter Summary ---
Author Organization [employer] Address [address] [facility] 7 [place] [address] Care Team Providers Care Subgrade Roller Operator Name Role Phone Josr Veliz MD Primary Care Provider [phone] Reason for Visit * Reason Comments Med Refill Encounter Details Date Type Department Care Team ([facility] Contact Info) Description 03/08/2025 Refill [facility] [address] [place], [place] [phone] Josr Veliz MD [address] [place] [address] Type 2 diabetes mellitus without complication, without long-term current use of insulin ([facility]); Class 3 severe obesity due to excess calories with serious comorbidity and body mass index (BMI) of 40.0 to 44.9 in adult (HCC) Social History Tobacco Use Types Packs/Day Years [...] Description 05/22/2025 9:00 AM EST Office Visit [facility] [address] [place] [address] Josr Veliz MD [address] [place] [address] documented as of this encounter Visit Diagnoses Diagnosis Type 2 diabetes mellitus without complication, without long-term current use of insulin ([facility]) Class 3 severe obesity due to excess calories with serious comorbidity and body mass index (BMI) of 40.0 to 44.9 in adult ([facility]) documented in this encounter Additional Health Concerns Assessment Noted Time PHQ-9 Depression Total Score: 8 08/10/19 25 10:05 AM EDT documented as of this encounter Care Teams Subgrade Roller Operator Relationship Specialty Start Date End Date Josr Veliz MD [address] [place] [address] PCP - General Internal Medicine 04/18/18 documented as of this encounter
--- OUTSIDE RECORDS SUMMARY | 2025-04-04 19:31 | XMS_ITS | Clinical Summary ---
Author Organization [employer] Address [address] [facility] 7t [place] [address] Care Team Providers Care Third Loader Name Role Phone Josr Veliz MD Primary Care Provider [phone] Allergies Active Allergy Reactions Criticality Noted Date Comments Amoxicillin 02/09/2012 Azithromycin 02/09/2012 Latex Itching 12/11/2012 Lidocaine 05/24/2016 Nickel 05/24/2016 Medications Advair HFA 115-21 MCG/ACT inhaler INHALE TWO PUFFS BY MOUTH TWICE DAILY RINSE MOUTH AFTER USE 04/07/20 22 Active Dextromethorphan- guaiFENesin (Mucinex DM Maximum Strength) 60-1200 MG tablet sustained-release 12 hour TAKE ONE TABLET EVERY TWELVE HOURS NEEDED FOR COUGH 02/23/20 22 Active montelukast (Singulair) 10 MG tablet Take 10 mg by mouth in the morning. 07/08/19 23 Active polyethylene glycol, PEG, 3350 (Miralax) 17 g packet MIX 1 PACKET IN 8 OUNCES OF WATER, JUICE,SODA, COFFEE, OR TEA DAILY NEEDED FOR CONSTIPATION 08/08/19 22 Active triamcinolone (Nasacort Allergy 24HR) 55 MCG/ACT nasal inhaler 2 sprays in each nostril every day 02/16/20 19 Active diphenhydrAMINE (Benadryl Allergy) 25 MG tabletIndications :Acute viral syndrome Take 1 tablet (25 mg) by mouth every 12 (twelve) hours. 60 tablet 1 07/17/19 23 Active omeprazole OTC (PriLOSEC OTC) 20 MG EC tabletIndications :Heartburn Take 1 tablet (20 mg) by mouth before breakfast. Do not crush, chew, or split. 30 tablet 2 08/10/19 23 Active ibuprofen 400 MG tablet Take 1 tablet (400 mg) by mouth every 6 (six) hours if needed for moderate pain or fever for up to 30 doses. 30 tablet 12/14/19 23 Active Blood Glucose Monitoring Suppl (FreeStyle Lite) w/Device kit Inject 1 Units under the skin 3 times daily AND 1 Units 3 times daily. USE TO TEST BLOOD SUGAR THREE TIMES A DAY. 1 kit 01/15/20 Active FREESTYLE LITE test strip TEST BLOOD SUGAR THREE TIMES DAILY 100 each 06/13/19 24 Active TRUEplus Lancets 33G misc TEST BLOOD SUGAR THREE TIMES DAILY 100 each 06/13/19 24 Active glucose blood (FREESTYLE LITE) test stripIndications: Type 2 diabetes mellitus without complications (HCC) TEST BLOOD SUGAR THREE TIMES DAILY 100 strip 11 08/04/19 25 Active TRUEplus Lancets 33G miscIndications:T ype 2 diabetes mellitus without complications (HCC) TEST BLOOD SUGAR THREE TIMES DAILY 100 each 08/04/19 25 Active glipiZIDE (Glucotrol) 5 MG tablet TAKE ONE TABLET BY MOUTH TWICE DAILY BEFORE BREAKFAST AND SUPPER 180 tablet 1 09/12/19 25 Active atorvastatin (Lipitor) 80 MG tabletIndications :Hypercholesterol emia TAKE ONE TABLET EVERY DAY 90 tablet 1 09/20/19 25 Active meloxicam (Mobic) 7.5 MG tablet TAKE 1 TABLET BY MOUTH EVERY DAY 30 tablet 5 09/29/19 25 Active atenolol (Tenormin) 25 MG tablet TAKE ONE TABLET BY MOUTH EVERY DAY 90 tablet 3 10/11/19 25 Active famotidine (Pepcid) 20 MG tabletIndications :Heartburn Take 1 tablet (20 mg) by mouth 2 times daily. 60 tablet 01/08/20 25 026 Active spironolactone (Aldactone) 100 MG tabletIndications :Essential hypertension,Swel ling of both ankles,Essential hypertension Take 1 tablet (100 mg) by mouth Once per day. 30 tablet 01/08/20 25 026 Active amLODIPine (Norvasc) 2.5 MG tablet TAKE ONE TABLET EVERY DAY 90 tablet 1 01/25/20 25 Active tolterodine LA (Detrol LA) 4 MG 24 hr capsule Take 1 capsule (4 mg) by mouth Once per day. Do not crush, chew, or split.TAKE ONE CAPSULE EVERY MORNING. DO NOT BREAK, CRUSH, DISSOLVE OR CHEW 90 capsule 3 02/01/20 25 Active Blood Pressure kitIndications:Es sential hypertension To check the BP Daily. 1 kit 02/19/20 25 Active Linzess 145 MCG capsuleIndication s:Other constipation Take 1 capsule (145 mcg) by mouth in the morning. 30 capsule 11 02/19/20 25 Active Dulaglutide (Trulicity) 3 MG/0.5ML solution auto-injectorIndi cations:Type 2 diabetes mellitus without complication, without long-term current use of insulin ([facility]) Inject 3 mg under the skin 1 (one) time per week. 2 mL 11 04/03/20 25 Active Dulaglutide (Trulicity) 4.5 MG/0.5ML solution auto-injectorIndi cations:Type 2 diabetes mellitus without complication, without long-term current use of insulin ([facility]) Inject 4.5 mg combined under the skin every 7 (seven) days AND 4.5 mg every 7 (seven) days. 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 Advised to start exercising and to resume [...] Encounters Date Type Department Care Team Description 04/03/2025 Orders Only [facility] [address] [place] [address] Josr Veliz MD Type 2 diabetes mellitus without complication, without long-term current use of insulin ([facility]) (Primary Dx) 04/03/2025 Telephone [facility] [address] [place], [place] [phone] Josr Veliz MD Medication Question 03/08/2025 Refill [facility] [address] [place] [address] Josr Veliz MD Type 2 diabetes mellitus without complication, without long-term current use of insulin ([facility]); Class 3 severe obesity due to excess calories with serious comorbidity and body mass index (BMI) of 40.0 to 44.9 in adult ([facility]) 02/18/2025 4:00 PM EST Office Visit [facility] [address] [place] [address] Josr Veliz MD Type 2 diabetes mellitus without complication, without long-term current use of insulin ([facility]) (Primary Dx); Essential hypertension; Other constipation; Mild chronic obstructive pulmonary disease (CMS/HCC) ([facility]) 02/18/2025 Travel 02/11/2025 Travel 01/30/2025 Refill [facility] [address] [place] [address] Josr Veliz MD 01/24/2025 Refill [facility] [address] [place] [address] Josr Veliz MD 01/10/2025 Results Follow-Up [facility] [address] [place], [place] [phone] Ethel San RN POCT Urinalysis, Culture, Urine, Routine 01/08/2025 Orders Only [facility] [address] [place] [address] Josr Veliz MD Urinary frequency (Primary Dx); UTI symptoms 01/07/2025 2:30 PM EDT Office Visit [facility] [address] [place] [address] Josr Veliz MD Essential hypertension (Primary Dx); Mild chronic obstructive pulmonary disease ([facility]/HCC); Type 2 diabetes mellitus without complication, without long-term current use of insulin ([facility]); Class 3 severe obesity due to excess calories with serious comorbidity and body mass index (BMI) of 40.0 to 44.9 in adult; E. coli UTI; Excessive sweating, local; Heartburn; Swelling of both ankles; Essential hypertension; Urinary frequency 01/07/2025 Travel from Last 3 Months Immunizations Immunization Administration [...] Sign Reading Time Taken Comments Blood Pressure 143/82 02/18/2025 4:05 PM EST Pulse 90 02/18/2025 4:05 PM EST Temperature 36.6 C (97.9 F) 10/11/2024 3:54 PM EDT Respiratory Rate 21 02/18/2025 4:05 PM EST Oxygen Saturation 94% 02/18/2025 4:05 PM EST Inhaled Oxygen Concentration - - Weight 111 kg (245 lb) 02/18/2025 4:05 PM EST Height 165.1 cm (5' 5 ) 02/18/2025 4:05 PM EST Body Mass Index 40.77 02/18/2025 4:05 PM EST Plan of Treatment Upcoming Encounters Date Type Department Care Team (Late st Contact Info) Description 05/22/2025 9:00 AM EST Office Visit [facility] [address] [place], [place] [phone] Josr Veliz MD [address] [place] [phone] Health Maintenance Due Date Last Done Comments CT Colonography 1965 Colonoscopy 1966 Colorectal Cancer Screening 1965 FIT DNA/Cologuard 1966 FIT 1965 FOBT 1965 Sigmoidoscopy 1966 Disability Screening 1966 Diabetes: Urine Protein Screening 1985 RSV Patients and Patients Aged 60 years or older (1 - Risk 50-74 years 1-dose series) 2016 Dental X-Ray: Bitewings 08/26/2021 08/25/2020 Dental Oral Exam 07/28/2022 01/26/2022 Dental Prophylaxis 12/09/2022 06/10/2022, 01/11/2019 Pap Smear 08/20/2023 08/19/2020 Mammogram 02/19/2024 02/18/2023, 07/18, 08/13/2022, Additional history exists COVID-19 Vaccine ( - 2024- season) 2024 07/02/2020 Influenza Vaccine (#1) 2024 03/12/2013 Dental X-Ray: Full Mouth 01/27/2025 01/26/2022, 08/16 Lipid Panel 03/31/2025 03/31/2024, 04/19, 11/02/2019 Diabetes: Hemoglobin A1C 05/21/2025 025, 08/09/2024, 03/02/2024, Additional history exists Eye Exam 06/30/2025 07/01/2023 Alcohol/Substance Use Screening 08/09/2025 08/09/2024 Depression Screening 08/09/2025 08/09/2024, 08/10/19 Diabetes: Foot Exam 08/09/2025 08/09/2024, 03/25/2023, 03/25/2023, Additional history exists Pneumococcal Vaccine: 50+ Years (1 of 2 - PCV) 08/09/2025 Postponed from 1985 (Patient Refused) SDOH Screening 08/09/2025 08/09/2024 Cervical Cancer Screening 08/19/2025 HPV/Cotest 08/19/2025 08/19/2020, 08/09/2017 Tobacco Screening 02/18/2026 02/18/2025 DTaP/Tdap/Td Vaccines (7 - Td or Tdap) 12/13/2032 12/13/2022, 03/12/2013, 12/26/1980, Additional history exists IPV Vaccines Completed 08/16/1972, 09/17, 09/12/1967 Hepatitis [...] on patient's age to complete this topic Goals Goal Patient Goal Type Associated Problems [...] Care Plan Patient has chronic kidney disease Ingris Anthony Weekly blood pressure task Care Plan Weekly blood pressure task No Josr Veliz MD Weekly blood pressure task Care Plan Weekly blood pressure task No Josr Veliz MD Patient has chronic kidney disease Care Plan Patient has chronic kidney disease No Josr Veliz MD Patient has chronic kidney disease Care Plan Patient has chronic kidney disease Josr Granados MD Procedures Procedure Name Priority Date/Time Associated Diagnosis Comments POCT GLYCATED HEMOGLOBIN, TOTAL Routine 02/18/2025 4:22 PM EST Type 2 diabetes mellitus without complication, without long-term current use of insulin ([facility]) POCT GLUCOSE Routine 02/18/2025 4:22 PM EST Type 2 diabetes mellitus without complication, without long-term current use of insulin ([facility]) POCT URINALYSIS DIPSTICK Routine 01/07/2025 3:14 PM EDT Type 2 diabetes mellitus without complication, without long-term current use of insulin ([facility]) E. coli UTI CULTURE, URINE, ROUTINE Routine 01/07/2025 3:00 PM EDT E. coli UTI HEPATITIS C ANTIBODY Routine 03/31/2024 10:20 AM EST Type 2 diabetes mellitus without complication, without long-term current use of insulin ([facility]) Annual physical exam Essential hypertension HIV 1/2 ANTIGEN/ANTIBODY, FOURTH GENERATION W/RFL Routine 03/31/2024 10:20 AM EST Type 2 diabetes mellitus without complication, without long-term current use of insulin ([facility]) Annual physical exam Essential hypertension LIPID PANEL, STANDARD Routine 03/31/2024 10:20 AM EST Type 2 diabetes mellitus without complication, without long-term current use of insulin ([facility]) Annual physical exam Essential hypertension HM DIABETES EYE EXAM Routine 07/01/2023 9:22 AM EDT BI MAMMOGRAM SCREENING TOMOSYNTHESIS BILATERAL Routine 02/18/2023 4:30 PM EDT PROPHYLAXIS - ADULT Routine 06/10/2022 1 1:00 AM EST HPV MRNA E6/E7 Routine 08/19/2020 2:51 PM EDT THINPREP PAP Routine 08/19/2020 2:51 PM EDT from Last 3 Months or Most Recently Relevant to Health Maintenance Results * (ABNORMAL) POCT Hgb A1c (02/18/2025 4:22 PM EST) Hemoglobin A1C 7.7(A) 4.0 - 5.7 % QC Media Lot # [id number] Lot# Expiration Date , Blood 02/18/2025 4:22 PM EST Josr Veliz MD POINT OF CARE TEST ENTER/ED IT ORDERABLES Final Result * POCT Glucose (02/18/2025 4:22 PM EST) Glucose Blood, POC 147 60 - 200 mg/dL QC Media Lot # [id number] Lot# Expiration Date Comment:random Blood Capillary blood specimen / Unknown 02/18/2025 4:22 PM EST Josr Veliz MD POINT OF CARE TEST ENTER/ED IT ORDERABLES Final Result * (ABNORMAL) POCT Urinalysis (01/07/2025 3:14 PM [...] Media Lot # [id number] Lot# Expiration Date 025 Urine 01/07/2025 3:14 PM EDT Josr Veliz MD POINT OF CARE TEST ENTER/ED IT ORDERABLES Final Result * Culture, Urine, Routine (01/07/2025 3:00 PM EDT) Urine Urine specimen obtained by clean catch procedure / Unknown 01/07/2025 3:00 PM EDT 01/07/2025 5:56 PM EDT Comment:UACC Narrative [facility] - 01/09/2025 8:18 AM EDT Escherichia coli Quant > 100,000 cfu/mL Escherichia coli: Ampicillin <=2(S) Escherichia coli: Cefazolin (Urine) <=1(S) Escherichia coli: Cefepime <=0.12(S) Escherichia coli: Ceftriaxone <=0.25(S) Escherichia coli: Ciprofloxacin <=0.06(S) Escherichia coli: Gentamicin <=1(S) Escherichia coli: Nitrofurantoin <=16(S) Escherichia coli: Trimethoprim/Sulfamethoxazole <=20(S) Specimen Source: Urine clean catch Josr Veliz MD LAB MICROBIOLOGY - GENERAL ORDERABLES Final Result Performing Organization Address [facility] de Phone Number [facility] [address] [place] [phone] * Hepatitis C Ab (03/31/2024 10:20 AM EST) Hepatitis C Antibody Nonreactive Nonreactive [facility] Comment:Antibodies to HCV no t detected; does not exclude early acuteHCV infection. Blood Venous blood specimen / Unknown 03/31/2024 10:20 AM EST 03/31/2024 10:20 AM EST Josr Veliz MD LAB BLOOD ORDERABLES Final Result Performing Organization Address [facility] Co de Phone Number [facility] [address] [place] [phone] * HIV-1/2 Antigen and Antibodies, Fourth Generation, with Reflexes (03/31/2024 10:20 AM EST) HIV AB/AG Nonreactive Nonreactive [facility] Comment:HIV-1 p24 Ag and/or HIV-1/HIV-2 Ab not detected.A test result that is nonreactive does not exclude thepossibility of exposure to or infection with HIV-1 and/orHIV-2. Nonreactive results in this assay for individualswith prior exposure to HIV-1 and/or HIV-2 may be due toantigen and antibody levels that are below the limit ofdetection of this assay.The Relevant Medianity HIV Ag/Ab Combo assay result andsupplemental assay results should be interpreted inconjunction with the patient's clinical presentation,history and other laboratory results. If the results areinconsistent with clinical evidence, additional testing issuggested to confirm the result. Blood Venous blood specimen / Unknown 03/31/2024 10:20 AM EST 03/31/2024 10:20 AM EST us Josr Veliz MD LAB BLOOD ORDERABLES Final Result [facility] [address] [place] [phone] * (ABNORMAL) Lipid Panel, Standard (03/31/2024 10:20 AM EST) Triglycerides 55 <150 mg/dL [facility] Comment:Desirable Triglyceri de: less than 150 mg/dLBorderline High Triglyceride 150-199 mg/dLHigh Triglyceride: 200-499 mg/dLVery High Triglyceride: greater than or equal to 5OO mg/dL Cholesterol 95 <200 mg/dL [facility] Comment:Desirable Cholestero l: less than 200 mg/dLBorderline High Cholesterol: 200-239 mg/dLHigh Cholesterol: greater than 239 mg/dL LDL Cholesterol Calculated 50 <100 mg/dL [facility] Comment:Desirable LDL: less than 100 mg/dLNear Optimal/Above Optimal LDL: 110- 129 mg/dLBorderline High LDL: 130-159 mg/dLHigh LDL: 160-189 mg/dLVery High LDL: greater than or equal to 190 mg/dL HDL Cholesterol 34(L) >40 mg/dL [facility] Comment:Desirable HDL: great er than 40 mg/dL Note: This HDL assay may give artificially low results in patients with liver disease. Blood Venous blood specimen / Unknown 03/31/2024 10:20 AM EST 03/31/2024 10:20 AM EST Josr Veliz MD LAB BLOOD ORDERABLES Final Result [facility] [address] [place] [phone] * Diabetes Eye Exam (07/01/2023 9:22 AM EDT) Historical Provider MD HEALTH MAINTENANCE Final Result * BI Mammogram Screening Tomosynthesis Bilateral (02/18/2023 4:30 PM EDT) Anatomical Region Laterality Modality Breast Bilateral Mammography 02/18/2023 4:30 PM EDT Narrative 03/11/2023 1:31 PM EST [address] [place] [address] Mammography Report Signed Patient: Brittanie Pinon MR#: [id number] : 1965 Acct:[id number] Age/Sex: 57 / F ADM Date: 02/18/23 Loc: HO.MAMMO Attending Dr: Josr Veliz MD Ordering Physician: Josr Veliz MD Results: 1 Negative Date of Service: 02/18/23 Follow Up: 1 Year From [facility] ina Mammogram Procedure(s): MM tomosynthesis screening BI Accession Number(s): [id number] cc: Josr Veliz MD EXAMINATION: MM SCREENING [...] in OV> 03/11/23 1327 DD/ 1630 TD/TT: Log Chipper: Procedure Note Donotuseinterpreter, Image - 03/11/2023 [facility] [address] [place] [address] Mammography Report Signed Patient: Brittanie Pinon MMR#: [id number] : 1965Acct:[id number] Age/Sex: 57 / FADM Date: 02/18/23 Loc: RODOO Attending Dr: Josr Veliz MD Ordering Physician: Josr Veliz MDResults: 1 Negative Date of Service: 02/18/23Follow Up: 1 Year From Orig inal Mammogram Procedure(s): MM tomosynthesis screening BI Accession Number(s): [id number] cc: Josr Veliz MD EXAMINATION: MM SCREENING [...] in OV> 03/11/23 1327 DD/ 1630 TD/TT: Log Chipper: us Josr Veliz MD IMG BI PROCEDURES Final Res ult * THINPREP PAP (08/19/2020 2:51 PM EDT) Pathologist [facility] Clinical Information: None given [facility] [...] along with historic and current clinical information. Sports Teacher : SEE COMMENT [facility] Comment: JXM, CT(ASCP) CT screening location: [place] [address] Interpretation/R esult: Negative for intraepithelial lesion or malignancy. [facility] LMP: NONE GIVEN [facility] Prev. BX: NONE [facility]IVEN [facility] Prev. PAP: NONE GIVEN [facility] SOURCE: None given [facility] Statement Of Adequacy: SEE COMMENT [facility] Comment: Satisfactory for evaluation. Endocervical/transformation zone component absent. 08/19/2020 2:51 PM EDT us Nichole [facility] LAB PATHOLOGY ORDERABLES Final Result [facility] [address] * HPV mRNA E6/E7 (08/19/2020 2:51 PM EDT) Pathologist [facility] HPV nRNA E6/E7 Not Detected Not Detected [facility] Comment: Methodology: Alcohol Rubber-Mediated Amplification This assay detects E6/E7 viral messenger RNA (mRNA) from 14 high-risk HPV types (16,18,31,33,35,39,45,51,52,56,58,59,66,68). The analytical performance characteristics of this assay have been determined by [employer]. The modifications have not been cleared or approved by the FDA. This assay has been validated pursuant to the CLIA regulations and is used for clinical purposes. For additional information, please refer to http://education.[employer]/faq/UKK938n9 (This link if provided for information/ educational purposes only.) 08/19/2020 2:51 PM EDT us Nichole [facility] LAB BLOOD ORDERABLES Cathi estrada Result [facility] [address] from Last 3 Months or Most Recently Relevant to Health Maintenance Additional Health Concerns Active Problems Noted Date [...] 04/03/2025 Patient has chronic kidney disease 04/03/2025 Insurance [facility] C[place] ST[place] AD[place] Care Teams Third Loader Relationship Specialty Start Date End Date Josr Veliz MD [address] [place], [place] [address] [address] PCP - General Internal Medicine 04/18/18
--- OUTSIDE RECORDS SUMMARY | 2025-04-04 19:31 | XMS_ITS | Encounter Summary ---
Author Organization [employer] Address [address] [facility] 7t [place] [address] Care Team Providers Care Wool Hanker Name Role Phone Josr Veliz MD Primary Care Provider [phone] Encounter Details Date Type Department Care Team (Late st Contact Info) Description 04/24/2024 Orders Only [facility] [address] [place] [address] ProviderYvette MD Social History Tobacco Use Types [...] Description 05/22/2025 9:00 AM EST Office Visit [facility] [address] [place] [address] Josr Veliz MD [address] [place] [address] documented as of this encounter Procedures Procedure Name Priority Date/Time Associated Diagnosis Comments DIABETES EYE EXAM Routine 07/01/2023 9:22 AM EDT documented in this encounter Results * Diabetes Eye Exam (07/01/2023 9:22 AM EDT) Historical Provider HEALTH MAINTENANCE Final Result documented in this encounter Visit Diagnoses Not on filedocumented in this encounter Care Teams Wool Hanker Relationship Specialty Start Date End Date Josr Veliz MD [address] [place] [address] PCP - General Internal Medicine 04/18/18 documented as of this encounter
--- OUTSIDE RECORDS SUMMARY | 2025-04-04 19:31 | XMS_ITS | Encounter Summary ---
Author Organization [employer] Address [address] [facility] [address] [place] [address] Care Team Providers Care Sheeting Puller Name Role Phone Josr Veliz MD Primary Care Provider [phone] Reason for Visit * Reason Comments Med Refill Encounter Details Date Type Department Care Team ([facility] st Contact Info) Description 08/03/2024 Refill [facility] [address] [place] [address] Josr Veliz MD [address] [place] [address] Social History Tobacco Use Types Packs/Day Years [...] t he electric, gas, oil or water [employer]ion[employer] threatened to shut off services in your [...] Description 05/22/2025 9:00 AM EST Office Visit [facility] [address] [place] [address] Josr Veliz MD [address] [place] [address] documented as of this encounter Visit Diagnoses Not on filedocumented in this encounter Care Teams Sheeting Puller Relationship Specialty Start Date End Date Josr Veliz MD [address] [place] [address] PCP - General Internal Medicine 04/18/18 documented as of this encounter
--- OUTSIDE RECORDS SUMMARY | 2025-04-04 19:31 | XMS_ITS | Encounter Summary ---
Author Organization [employer] Address [address] [facility] 7 [place] [address] Care Team Providers Care Pipe And Boiler Covers Supervisor Name Role Phone Josr Veliz MD Primary Care Provider [phone] Reason for Visit * Reason Comments Med Refill Encounter Details Date Type Department Care Team ([facility] Contact Info) Description 05/12/2024 Refill [facility] [address] [place], [place] [phone] Josr Veliz MD [address] [place] [address] Essential hypertension Social History Tobacco Use Types [...] Description 05/22/2025 9:00 AM EST Office Visit [facility] [address] [place] [address] Josr Veliz MD [address] [place] [address] documented as of this encounter Visit Diagnoses Diagnosis Essential hypertension Unspecified essential hypertension documented in this encounter Care Teams Pipe And Boiler Covers Supervisor Relationship Specialty Start Date End Date Josr Veliz MD [address] [place] [phone] PCP - General Internal Medicine 04/18/18 documented as of this encounter
== END 2025-04-04 16:26 | disposition home or self-care (01) ==
LOC: HO.HUSH 15:47
PROVIDERS: PCP Internal Medicine; Visit Provider Urology
DX: Z13.9 Encounter for screening, unspecified (principal); N39.0 Urinary tract infection, site not specified

== ENCOUNTER 2025-04-04 15:47 | Outpatient (REF) | payer MEDICAID, SELFPAY | END 2025-04-04 15:48 | disposition home or self-care (01) | LOC: HO.LAB 15:47 | PROVIDERS: PCP Internal Medicine; Visit Provider Urology | DX: N39.0 Urinary tract infection, site not specified (principal) | CPT/HCPCS: 87086; 87088; 87186 ==